=== PATIENT | male | born 1965 | race Caucasian/White ===

== ENCOUNTER 2021-02-26 16:55 | Emergency (ER) | payer OTHER, SELFPAY ==
--- NOTE | ~2021-02-26 | XR_ITS ---
EXAMINATION: XR ANKLE, RIGHT CLINICAL INFORMATION: Ankle pain COMPARISON: None TECHNIQUE: AP, lateral, and mortise views of the right ankle. FINDINGS: Soft tissue swelling around the anterior lateral ankle. No fracture. No dislocation. Ankle mortise is congruent. XR/XR ankle RT min 3V IMPRESSION: Soft tissue swelling at anterior lateral ankle. No acute osseous abnormality.
[2021-02-26 17:02] VITALS: BP 151/83; PULSE 100; RESP 18; TEMP 37; O2SAT 95; BMI 36.6
--- NOTE | 2021-02-26 19:43 | ED.LOWEXIN ---
HPI - Extremity Injury (Lower) General Chief Complaint: Extremity Injury, Lower Stated Complaint: Ankle pain Time Seen by Provider: 02/26/21 19:43 Source: patient and family Mode of arrival: ambulatory Limitations: no limitations History of Present Illness HPI Narrative: 55 y/o male with history of HTN, CAD s/p stent, DM who presents to the ER with right ankle pain after he twisted it twice today. He reports inversion injury walking down the steps earlier today and again when he was walking around the grocery store. The 2nd injury worsened the pain but he is still able to ambulate on it. He does have swelling to the outside of his ankle. No bruising or skin changes. He denies numbness or tingling. MD complaint: ankle injury Onset (ago): hour(s) Injury: Right: ankle Type of Injury: inversion Place: home and other (grocery store) Severity: moderate Severity scale (1-10): 5 Relieving factors: cold therapy Exacerbating factors: weight bearing, movement and palpation Context: walking Associated symptoms: swelling and ambulatory Other symptoms: none Treatments prior to arrival: cold therapy Related Data Previous Rx's Medication Instructions Recorded ibuprofen 600 mg tablet 600 mg PO Q8H PRN #14 tab 02/26/21 Allergies Allergy/AdvReac Type Severity Reaction Status Date / Time amoxicillin [Augmentin] Allergy Unknown Verified 03/10/18 00:00 clavulanic acid [Augmentin] Allergy Unknown Verified 03/10/18 00:00 Review of Systems Review of Systems: Constitutional: No Fever, No Chills Cardiovascular: No Chest Pain Respiratory: No Cough Gastrointestinal: No Nausea, No Vomiting, No abdominal Paina Musculoskeletal: + joint pain, No Myalgias Skin: No Skin Lesions, No rash Neuro: No Weakness, No Numbness Heme/Lymph: No Bruising PMFSH Past Medical History Medical History Diabetes Heart disease High cholesterol High triglycerides HTN (hypertension) Sleep apnea Surgical History (Updated 02/26/21 @ 17:05 by Emilia Pelletier) H/O heart artery stent S/P reconstruction of ligament of knee joint Social History Social History Advance Directives: No Advance Directives Information Provided: No Physical Exam Vital Signs: Vital Signs: Last Vital Signs Temp 98.6 F 02/26/21 17:02 Pulse 100 08/15/21 17:02 Resp 18 02/26/21 17:02 BP 151/83 H 02/26/21 17:02 Pulse Ox 95 02/26/21 17:02 Body Mass Index 36.6 Appearance: Alert. Oriented X3. No acute distress. HEENT: normal inspection CVS: Normal heart rate and rhythm. Pulses normal. Respiratory: No respiratory distress. Skin: Skin warm and dry. Normal skin color. Normal skin turgor. No rashes. Extremities: right ankle with moderate swelling above and below lateral malleolus with mild diffuse tenderness, no point tenderness. able to ambulate with slight limp. no ecchymosis. NV intact distally. Neuro: Oriented X 3. No motor deficit. No sensory deficit. Course Course Course Narrative: 55 y/o male presenting with right ankle pain s/p inversion injury x2 day. Still ambulatory. XR is negative for fracutre. His pain is due to ankle sprain, we discussed management and expected course. He will follow up with his PCP next week as scheduled. Placed in SANTOS wrap and given NSAID for pain. Critical Care Time Critical Care Time Critical Care Time: No Discharge Plan Discharge Clinical Impression: Ankle sprain and strain Patient Disposition: Home, Self-Care Instructions: Ankle Sprain (ED) Additional Instructions: Your x-ray today was normal. Rest you ankle and elevate your foot when possible. Recommend SANTOS wrap for support and compression. Use ice several times per day for the next 48 hours. You may bear weight as tolerated. Take Motrin and/or Tylenol as needed for pain. Follow up with your doctor next week for management of your blood pressure. Prescriptions: New ibuprofen 600 mg tablet 600 mg PO Q8H PRN (Reason: pain) Qty: 14 RF: 0
== END 2021-02-26 20:18 | disposition home or self-care (01) ==
PROVIDERS: Emergency Provider Emergency Medicine; PCP Family Medicine
DX: S93.401A Sprain of unspecified ligament of right ankle, initial encounter (principal); M25.571 Pain in right ankle and joints of right foot; I25.10 Atherosclerotic heart disease of native coronary artery without angina pectoris; X50.1XXA Overexertion from prolonged static or awkward postures, initial encounter; Y93.9 Activity, unspecified; Y92.9 Unspecified place or not applicable; Y99.9 Unspecified external cause status; I10 Essential (primary) hypertension; Z79.899 Other long term (current) drug therapy
CPT/HCPCS: 73610; 99283

== ENCOUNTER 2023-03-04 11:49 | Inpatient (IN) | payer OTHER, SELFPAY ==
[2023-03-04] VITALS (9 sets, daily range): BP systolic 150–171; BP diastolic 75–88; PULSE 76–103; RESP 16–19; TEMP 36.9–39.2; O2SAT 86–98; BMI 37.3
--- NOTE | ~2023-03-04 | XR_ITS ---
EXAMINATION: XR CHEST CLINICAL INFORMATION: Shortness of breath COMPARISON: None available. TECHNIQUE: Frontal view of the chest was obtained. FINDINGS: The cardiac and mediastinal contours are normal. The lungs are clear. There is no pleural effusion or pneumothorax. There are degenerative changes of the spine. There are old left clavicle and proximal left rib fractures. XR/XR chest 1V IMPRESSION: No evidence for acute disease in the chest.
--- NOTE | ~2023-03-04 | US_ITS ---
EXAMINATION: US VENOUS ULTRASOUND WITH DOPPLER LOWER EXTREMITY, RIGHT CLINICAL INFORMATION: Pain COMPARISON: None available. TECHNIQUE: Ultrasound of the deep veins is performed from the hip to the calf with compression sonography and color and pulse Doppler assessment. Spectral analysis with color-flow imaging is performed. FINDINGS: There is normal venous compression and respiratory variation and augmented flow. The visualized common femoral vein, superficial femoral vein, profunda femoral vein, popliteal vein, and the trifurcation region shows no evidence of deep venous thrombosis. There is no significant popliteal fossa cyst. If the patient's symptoms persist, followup ultrasound in 5 days 7 days might be of value to exclude proximal propagation from a non-visualized calf vein. US/US venous duplex LE RT IMPRESSION: No DVT demonstrated in the right lower extremity.
--- NOTE | ~2023-03-04 | XR_ITS ---
EXAMINATION: XR CHEST CLINICAL INFORMATION: Shortness of breath, hypoxic. COMPARISON: Chest radiograph 03/04/2023 at 2:00 PM. TECHNIQUE: AP view of the chest was obtained. FINDINGS: Stable appearance of the cardiomediastinal silhouette. Diffuse increased interstitial markings, slightly more prominent compared to earlier today. Suspect peripheral Wayne B-lines. No pleural effusion or pneumothorax. Chronic left upper rib fractures and left midclavicular fracture. XR/XR chest 1V IMPRESSION: Findings are suggestive of worsening pulmonary edema versus worsening atypical/viral infection. Close attention on follow-up to ensure improvement/resolution.
--- NOTE | ~2023-03-04 | XR_ITS ---
EXAMINATION: XR chest 1V CLINICAL INFORMATION: Reason for Exam Hypoxia COMPARISON: 03/05/2023 TECHNIQUE: XR chest 1V Tubes and lines: None Lungs and pleura: Redemonstration of mild patchy interstitial groundglass opacification unchanged from prior exam. Heart and mediastinum: The mediastinum is within normal limits.. Bones/soft tissue: Skeletal structures included are normal for patient's age. XR/XR chest 1V IMPRESSION: - Redemonstration of mild patchy interstitial groundglass opacification unchanged from prior exam. - No pleural effusion.
--- NOTE | ~2023-03-04 | US_ITS ---
EXAMINATION: US VENOUS ULTRASOUND WITH DOPPLER LOWER EXTREMITY, RIGHT CLINICAL INFORMATION: The right leg edema and pain. COMPARISON: There is some right lower extremity venous study 03/04/2023 TECHNIQUE: Ultrasound of the deep veins is performed from the hip to the calf with compression sonography and color and pulse Doppler assessment. Spectral analysis with color-flow imaging is performed. FINDINGS: There is normal venous compression and respiratory variation and augmented flow. The visualized common femoral vein, superficial femoral vein, profunda femoral vein, popliteal vein, and the trifurcation region shows no evidence of deep venous thrombosis. There is no significant popliteal fossa cyst. If the patient's symptoms persist, followup ultrasound in 5 days 7 days might be of value to exclude proximal propagation from a non-visualized calf vein. US/US venous duplex LE RT IMPRESSION: No DVT demonstrated in the right lower extremity. No change from the recent ultrasound 12/02/2022.
--- NOTE | ~2023-03-04 | XR_ITS ---
EXAMINATION: XR CHEST CLINICAL INFORMATION: Hypoxia. COMPARISON: Chest radiograph 03/04/2023. TECHNIQUE: Frontal view of the chest was obtained. FINDINGS: Stable prominence of the cardiomediastinal silhouette. Overall similar degree of diffuse interstitial thickening with questionable newly developed more focal groundglass opacities in the right lung. No pleural effusion or pneumothorax. Chronic left clavicular and posterior upper left-sided rib fractures. XR/XR chest 1V IMPRESSION: Questionable newly developed groundglass opacities in the right lung which could be seen with an atypical infection/pneumonia. Recommend clinical correlation and a follow-up examination to ensure resolution.
--- NOTE | ~2023-03-04 | CT_ITS ---
EXAMINATION: CT LOWER EXTREMITY WITH CONTRAST, RIGHT CLINICAL INFORMATION: Deep tissue infection, cellulitis COMPARISON: None. TECHNIQUE: CT of the right lower leg is performed following intravenous administration of 85 mL Omnipaque 350 iodinated contrast. Sagittal and coronal reformats were performed. This CT examination was performed using dose optimization techniques as appropriate, variously including the following: *Automated exposure control *Adjustment of mA and/or kV according to patient size (this includes techniques or standardized protocols for targeted exams where dose is matched to indication/reason for exam; i.e. extremities or head) *Use of iterative reconstruction technique Dose Length Product: 362 mGycm. FINDINGS: Diffuse subcutaneous edema throughout the lower leg and extending along the dorsum of the foot. No focal peripherally enhancing fluid collection to indicate an abscess. No asymmetric muscle attenuation. No acute osseous abnormality. No cortical erosion or periosteal reaction. CT/CT lower leg RT w IV con IMPRESSION: Diffuse subcutaneous edema throughout the lower leg and extending along the dorsum of the foot. This could represent cellulitis. No abscess.
--- NOTE | ~2023-03-04 | CT_ITS ---
EXAMINATION: CT ANGIOGRAM OF THE CHEST WITH AND WITHOUT CONTRAST (CT PULMONARY ANGIOGRAM FOR PE) CLINICAL INFORMATION: Reason for Exam Hemoptysis COMPARISON: None available. TECHNIQUE: Prior to contrast administration, noncontrast localization images were obtained. Subsequently, multidetector volumetric imaging was performed from the thoracic inlet to below the diaphragms following the administration of 80 mL Omnipaque 350 intravenous contrast. No contrast reaction reported Sagittal, coronal, and MIP oblique sagittal reformatted images were obtained on the CT workstation, uploaded to PACS, and reviewed. This CT examination was performed using dose optimization techniques as appropriate, variously including the following: *Automated exposure control *Adjustment of mA and/or kV according to patient size (this includes techniques or standardized protocols for targeted exams where dose is matched to indication/reason for exam; i.e. extremities or head) *Use of iterative reconstruction technique Total exam dose-length product 478 mGy-cm FINDINGS: QUALITY OF STUDY/CONTRAST BOLUS: Satisfactory. PULMONARY ARTERIES: No pulmonary emboli. THORACIC AORTA: No aneurysm. LUNG: There is bibasilar atelectasis/consolidation. Is patchy groundglass attenuation right upper lobe suspicious for developing infiltrate. PLEURA: Small bilateral pleural effusions are seen. No calcified pleural plaques or pneumothorax. MEDIASTINUM: Normal heart size. Small pericardial effusion is noted. No hilar or mediastinal lymphadenopathy. No evidence of septal bowing or right heart strain. CORONARY ARTERY CALCIFICATION: None visualized on this study. CHEST WALL/AXILLA: No axillary or internal mammary lymphadenopathy. OSSEOUS STRUCTURES: No aggressive lytic or sclerotic process seen. Mild ventral spondylosis seen throughout dorsal spine. UPPER ABDOMEN: Visualized liver, spleen appears unremarkable. No reflux of contrast into the hepatic veins to suggest elevated right heart pressures. CT/CT angio chest PE protocol IMPRESSION: 1. No evidence of PE. 2. No evidence of aortic aneurysm. 3. Small bilateral pleural effusions with bibasilar atelectasis/consolidation. 4. Small pericardial effusion. 5. There is right upper lobe patchy groundglass attenuation suspicious for developing infiltrate. VTE: negative.
--- NOTE | 2023-03-04 12:38 | ED_ITS ---
HPI - Nausea/Vomiting/Diarrhea General Chief complaint: General Medical Stated complaint: Syncope/Bloodclot?/Vomiting Time Seen by Provider: 03/04/23 13:01 Source: patient Mode of arrival: ambulatory Limitations: no limitations History of Present Illness HPI Narrative: Patient with history of Diabetes, coronary disease status post stent placement, sleep apnea and hypertension been having chills , fever with nausea vomiting yesterday almost passed out with blood sugar in 50s today noticed redness of the right leg no abdominal pain no cough no URI symptoms no open wound no chest pain or palpitation Related Data Home Medications Medication Instructions Recorded Confirmed aspirin 81 mg tablet,delayed 81 mg PO DAILY 03/04/23 03/04/23 release atorvastatin 80 mg tablet 80 mg PO BEDTIME 03/04/23 03/04/23 bupropion HCl 150 mg 24 hr tablet, 150 mg PO DAILY 03/04/23 03/04/23 extended release bupropion HCl 300 mg 24 hr tablet, 300 mg PO DAILY 03/04/23 03/04/23 extended release carvedilol 25 mg tablet 50 mg PO BID 03/04/23 03/04/23 dapagliflozin propanediol 10 mg 10 mg PO DAILY 03/04/23 03/04/23 tablet (Farxiga) doxazosin 4 mg tablet 4 mg PO DAILY 03/04/23 03/04/23 dulaglutide 3 mg/0.5 mL 3 mg subcut MO 03/04/23 03/04/23 subcutaneous pen injector (Trulicity) fenofibrate 160 mg tablet 160 mg PO DAILY 03/04/23 03/04/23 fluticasone propionate 50 1 spray intranasal BID 03/04/23 03/04/23 mcg/actuation nasal spray,suspension gabapentin 300 mg capsule 300 mg PO TID 03/04/23 03/04/23 insulin degludec 100 unit/mL (3 75 unit subcut BID 03/04/23 03/04/23 mL) subcutaneous pen (Tresiba FlexTouch U-100 insulin) isosorbide mononitrate 30 mg 30 mg PO DAILY 03/04/23 03/04/23 tablet,extended release 24 hr metformin 500 mg tablet,extended 1,000 mg PO BID 03/04/23 03/04/23 release 24 hr olmesartan 20 mg tablet 20 mg PO DAILY 03/04/23 03/04/23 olmesartan 40 1 tab PO DAILY 03/04/23 03/04/23 mg-hydrochlorothiazide 25 mg tablet Allergies Allergy/AdvReac Type Severity Reaction Status Date / Time amoxicillin [Augmentin] Allergy Unknown Verified 03/10/18 00:00 clavulanic acid [Augmentin] Allergy Unknown Verified 03/10/18 00:00 Review of Systems Review of Systems: Yes all other systems are reviewed and are negative [facility] Past Medical History Medical History Diabetes Heart disease High cholesterol High triglycerides HTN (hypertension) Sleep apnea Surgical History H/O heart artery stent S/P reconstruction of ligament of knee joint Social History Social History Smoked in Last 30 Days: No Use of substances other than those prescribed or required for medical reasons: No Advance Directives: No Advance Directives Information Provided: Yes Physical Exam Vital Signs: Vital Signs: Last Vital Signs Temp 99.3 F 03/04/23 16:53 Pulse 101 H 03/04/23 16:53 Resp 16 03/04/23 16:53 BP 171/83 H 03/04/23 16:53 Pulse Ox 92 03/04/23 16:53 O2 Del Method Room Air 03/04/23 16:53 BMI result Body Mass Index 37.3 Appearance: Alert. Oriented X3. No acute distress. Eyes: PERRLA, No Nystagmus ENT: Pharynx normal. Oral Mucosa moist Neck: Normal inspection. Neck supple. CVS: Normal heart rate and rhythm. Pulses normal. Respiratory: No respiratory distress. Equal air entry bilateral, no wheezing/rales/rhonchi Abdomen: Soft and nontender. Bowel sounds are present, no mass palpable, no CVA tenderness Skin: Skin warm and dry. Normal skin color. Normal skin turgor. Extremities: No lower extremity edema. No calf tenderness right leg cellulitic changes all the way to the thigh no open wound Neuro: Oriented X 3. No motor deficit. No sensory deficit.No cerebellar signs , cranial nerves II-XII intact Course Course Course Narrative: This is an RME: Additional HPI, ROS, PE not included below will be deferred to primary provider. This is a 57-year-old, with a hx of HTN, CAD s/p stent, UC, IBS, sleep apnea CPAP and DM, presenting to the emergency department with complaints of nausea vomiting diarrhea since yesterday. He states that his blood sugar has been dropping significantly. He admits that he had 2 syncopal episodes yesterday. He has pain radiating from his right ankle all the way up to his right thigh. Unable to visualize in triage however exquisitely tender to palpation. Patient is pale. He is not on blood thinners. Recent travel to [place] this past weekend. Endorsing shortness of breath, no chest pain Plan labs, EKG, chest x-ray, POC Medications Administered Discontinued Medications Generic Name Dose Route Start Last Admin Trade Name Freq PRN Reason Stop Dose Admin Vancomycin HCl 2,000 mg in 500 mls @ 250 mls/hr 03/04/23 13:25 03/04/23 17:28 Vancomycin/Ns IV 03/04/23 15:24 Infused ONCE ONE Infusion Ceftriaxone Sodium 1 gm/ 50 mls @ 100 mls/hr 03/04/23 13:25 03/04/23 14:57 Sodium Chloride IV 03/04/23 13:54 Infused ONCE ONE Infusion Sodium Chloride 1,000 mls @ 999 mls/hr 03/04/23 13:26 03/04/23 17:28 Ns IV 03/04/23 14:26 Infused .Q1H1M ONE Infusion Ondansetron HCl 4 mg 03/04/23 13:28 03/04/23 14:00 Ondansetron Hcl 4 Mg/2 Ml Vial IVPUSH 03/04/23 13:29 4 mg ONCE ONE Administration Medical Decision Making Medical Decision Making [facility] Narrative: Patient hypoglycemia and syncope episode noticed to have sepsis with right leg cellulitis with tachycardia leukocytosis and fever patient improved after IV fluids and antibiotic venous Doppler negative for DVT Differential Diagnosis Differential Diagnoses: The differential diagnosis associated with the presentation includes Sepsis/cellulitis/syncope/cardiac arrhythmias/ MINNIE Admission/Observation Consideration of admission/observation: Escalation of care including admission/observation considered Consult Healthcare Provider Management of the patient was discussed with: Hospitalist Lab Data MDM Lab Attestation statement: I reviewed the patient's lab results. 03/04/23 13:28 03/04/23 13:28 Labs: Lab Results 08/03/04/23 03/04/23 Range/Units 13:18 13:28 13:28 WBC 15.3 H (4.8-10.8) X10*3/uL RBC 5.02 (4.60-5.80) X10*6/uL Hgb 14.2 (14.0-18.0) g/dl Hct 42.9 (42.0-52.0) % MCV 85.5 (80.0-98.0) fL MCH 28.3 (27.0-33.0) pg MCHC 33.1 (31.0-36.0) g/dl RDW 14.8 (11.0-16.0) % Plt Count 151 L (160-400) X10*3/uL MPV 12.1 (9.4-12.4) fL Immature Gran % (Auto) 0.4 (0.0-0.4) % Neut % (Auto) 87.2 H (45-73) % Lymph % (Auto) 5.3 L (20-40) % [place] % (Auto) 6.6 (2-11) % Eos % (Auto) 0.1 (0-4) % Baso % (Auto) 0.4 (0-2) % Lymph # (Auto) 0.8 L (1.2-4.9) X10*3/uL [place] # (Auto) 1.0 (0.1-1.2) X10*3/uL Eos # (Auto) 0.0 (0.0-0.4) X10*3/uL Baso # (Auto) 0.1 (0.0-0.2) X10*3/uL Abs Immat Gran (auto) 0.06 H (0.00-0.03) X10*3/uL Absolute Neuts (auto) 13.4 H (2.0-8.3) x10*3/uL Absolute Nucleated RBC 0.000 (0.0-0.012) X10*3/uL Nucleated RBC % (auto) 0.0 (0.0-0.2) /100WBC PT (11.1-13.3) SEC INR (0.9-1.1) APTT (26.0-36.4) SEC Sodium 143 (135-145) mmol/L Potassium 3.1 L (3.3-5.1) mmol/L Chloride 104 (96-108) mmol/L Carbon Dioxide 28 (22-29) mmol/L Anion Gap 14 (12-20) BUN 26 H (9-16) mg/dL Creatinine 1.64 H (0.5-1.4) mg/dL Estim Creat Clear Calc 68.6 Estimated GFR 44 POC Glucose 56 L* (60-115) mg/dL Random Glucose 65 (60-115) mg/dL Lactic Acid (0.5-2.0) mmol/L Calcium 10.3 H (8.4-10.2) mg/dL Magnesium 1.9 (1.6-2.6) mg/dL Total Bilirubin 1.5 H (0.0-1.0) mg/dL Direct Bilirubin 0.6 H (0.0-0.5) mg/dL AST 33 (5-37) U/L ALT 44 H (0-40) U/L Alkaline Phosphatase 49 (39-117) U/L Troponin I High Sens (<3.5-35.0) ng/L B-Natriuretic Peptide (<100) pg/mL Total Protein 7.8 (6.5-8.0) g/dL Albumin 4.4 (3.5-5.0) g/dL Lipase 48 (8-78) U/L COVID-19 (VICKY) (Negative) COVID-19 Clin Com Influenza Type A (HUMA) (Negative) Influenza Type B (HUMA) (Negative) Influenza A & B Note 03/04/23 03/04/23 03/04/23 Range/Units 13:28 13:28 13:28 WBC (4.8-10.8) X10*3/uL RBC (4.60-5.80) X10*6/uL Hgb (14.0-18.0) g/dl Hct (42.0-52.0) % MCV (80.0-98.0) fL MCH (27.0-33.0) pg MCHC (31.0-36.0) g/dl RDW (11.0-16.0) % Plt Count (160-400) X10*3/uL MPV (9.4-12.4) fL Immature Gran % (Auto) (0.0-0.4) % Neut % (Auto) (45-73) % Lymph % (Auto) (20-40) % [place] % (Auto) (2-11) % Eos % (Auto) (0-4) % Baso % (Auto) (0-2) % Lymph # (Auto) (1.2-4.9) X10*3/uL [place] # (Auto) (0.1-1.2) X10*3/uL Eos # (Auto) (0.0-0.4) X10*3/uL Baso # (Auto) (0.0-0.2) X10*3/uL Abs Immat Gran (auto) (0.00-0.03) X10*3/uL Absolute Neuts (auto) (2.0-8.3) x10*3/uL Absolute Nucleated RBC (0.0-0.012) X10*3/uL Nucleated RBC % (auto) (0.0-0.2) /100WBC PT 16.2 H (11.1-13.3) SEC INR 1.3 H (0.9-1.1) APTT 24.1 L (26.0-36.4) SEC Sodium (135-145) mmol/L Potassium (3.3-5.1) mmol/L Chloride (96-108) mmol/L Carbon Dioxide (22-29) mmol/L Anion Gap (12-20) BUN (9-16) mg/dL Creatinine (0.5-1.4) mg/dL Estim Creat Clear Calc Estimated GFR POC Glucose (60-115) mg/dL Random Glucose (60-115) mg/dL Lactic Acid (0.5-2.0) mmol/L Calcium (8.4-10.2) mg/dL Magnesium (1.6-2.6) mg/dL Total Bilirubin (0.0-1.0) mg/dL Direct Bilirubin (0.0-0.5) mg/dL AST (5-37) U/L ALT (0-40) U/L Alkaline Phosphatase (39-117) U/L Troponin I High Sens 47.7 H (<3.5-35.0) ng/L B-Natriuretic Peptide 136 H (<100) pg/mL Total Protein (6.5-8.0) g/dL Albumin (3.5-5.0) g/dL Lipase (8-78) U/L COVID-19 (VICKY) (Negative) COVID-19 Clin Com Influenza Type A (HUMA) (Negative) Influenza Type B (HUMA) (Negative) Influenza A & B Note 03/04/23 03/04/23 03/04/23 Range/Units 13:50 13:50 13:50 WBC (4.8-10.8) X10*3/uL RBC (4.60-5.80) X10*6/uL Hgb (14.0-18.0) g/dl Hct (42.0-52.0) % MCV (80.0-98.0) fL MCH (27.0-33.0) pg MCHC (31.0-36.0) g/dl RDW (11.0-16.0) % Plt Count (160-400) X10*3/uL MPV (9.4-12.4) fL Immature Gran % (Auto) (0.0-0.4) % Neut % (Auto) (45-73) % Lymph % (Auto) (20-40) % [place] % (Auto) (2-11) % Eos % (Auto) (0-4) % Baso % (Auto) (0-2) % Lymph # (Auto) (1.2-4.9) X10*3/uL [place] # (Auto) (0.1-1.2) X10*3/uL Eos # (Auto) (0.0-0.4) X10*3/uL Baso # (Auto) (0.0-0.2) X10*3/uL Abs Immat Gran (auto) (0.00-0.03) X10*3/uL Absolute Neuts (auto) (2.0-8.3) x10*3/uL Absolute Nucleated RBC (0.0-0.012) X10*3/uL Nucleated RBC % (auto) (0.0-0.2) /100WBC PT (11.1-13.3) SEC INR (0.9-1.1) APTT (26.0-36.4) SEC Sodium (135-145) mmol/L Potassium (3.3-5.1) mmol/L Chloride (96-108) mmol/L Carbon Dioxide (22-29) mmol/L Anion Gap (12-20) BUN (9-16) mg/dL Creatinine (0.5-1.4) mg/dL Estim Creat Clear Calc Estimated GFR POC Glucose (60-115) mg/dL Random Glucose (60-115) mg/dL Lactic Acid 1.0 (0.5-2.0) mmol/L Calcium (8.4-10.2) mg/dL Magnesium (1.6-2.6) mg/dL Total Bilirubin (0.0-1.0) mg/dL Direct Bilirubin (0.0-0.5) mg/dL AST (5-37) U/L ALT (0-40) U/L Alkaline Phosphatase (39-117) U/L Troponin I High Sens (<3.5-35.0) ng/L B-Natriuretic Peptide (<100) pg/mL Total Protein (6.5-8.0) g/dL Albumin (3.5-5.0) g/dL Lipase (8-78) U/L COVID-19 (VICKY) Negative (Negative) COVID-19 Clin Com See Note Influenza Type A (HUMA) Negative (Negative) Influenza Type B (HUMA) Negative (Negative) Influenza A & B Note See Note 03/04/23 Range/Units 14:42 WBC (4.8-10.8) X10*3/uL RBC (4.60-5.80) X10*6/uL Hgb (14.0-18.0) g/dl Hct (42.0-52.0) % MCV (80.0-98.0) fL MCH (27.0-33.0) pg MCHC (31.0-36.0) g/dl RDW (11.0-16.0) % Plt Count (160-400) X10*3/uL MPV (9.4-12.4) fL Immature Gran % (Auto) (0.0-0.4) % Neut % (Auto) (45-73) % Lymph % (Auto) (20-40) % [place] % (Auto) (2-11) % Eos % (Auto) (0-4) % Baso % (Auto) (0-2) % Lymph # (Auto) (1.2-4.9) X10*3/uL [place] # (Auto) (0.1-1.2) X10*3/uL Eos # (Auto) (0.0-0.4) X10*3/uL Baso # (Auto) (0.0-0.2) X10*3/uL Abs Immat Gran (auto) (0.00-0.03) X10*3/uL Absolute Neuts (auto) (2.0-8.3) x10*3/uL Absolute Nucleated RBC (0.0-0.012) X10*3/uL Nucleated RBC % (auto) (0.0-0.2) /100WBC PT (11.1-13.3) SEC INR (0.9-1.1) APTT (26.0-36.4) SEC Sodium (135-145) mmol/L Potassium (3.3-5.1) mmol/L Chloride (96-108) mmol/L Carbon Dioxide (22-29) mmol/L Anion Gap (12-20) BUN (9-16) mg/dL Creatinine (0.5-1.4) mg/dL Estim Creat Clear Calc Estimated GFR POC Glucose 73 (60-115) mg/dL Random Glucose (60-115) mg/dL Lactic Acid (0.5-2.0) mmol/L Calcium (8.4-10.2) mg/dL Magnesium (1.6-2.6) mg/dL Total Bilirubin (0.0-1.0) mg/dL Direct Bilirubin (0.0-0.5) mg/dL AST (5-37) U/L ALT (0-40) U/L Alkaline Phosphatase (39-117) U/L Troponin I High Sens (<3.5-35.0) ng/L B-Natriuretic Peptide (<100) pg/mL Total Protein (6.5-8.0) g/dL Albumin (3.5-5.0) g/dL Lipase (8-78) U/L COVID-19 (VICKY) (Negative) COVID-19 Clin Com Influenza Type A (HUMA) (Negative) Influenza Type B (HUMA) (Negative) Influenza A & B Note Independent Interpretation I performed an independent interpretation of an: EKG Interpretation: Normal sinus rhythm heart rate 91 beats per minute LVH no acute ST T wave changes no acute ischemia Independent Historian Clinical information obtained from an independent historian. History obtained from or confirmed by: Spouse Discharge Plan Discharge Clinical Impression: Cellulitis of right leg, Sepsis, MINNIE (acute kidney injury) Patient Disposition: Admitted As Inpatient
--- NOTE | 2023-03-04 12:44 | ECG_ITS ---
Test Reason : DYSPNEA Blood Pressure : / mmHG Vent. Rate : 091 BPM Atrial Rate : 091 BPM P-R Int : 148 ms QRS Dur : 088 ms QT Int : 352 ms P-R-T Axes : 030 000 127 degrees QTc Int : 432 ms Normal sinus rhythm Left ventricular hypertrophy with repolarization abnormality ( R in aVL , [place] product ) Abnormal ECG No previous ECGs available Referred By: Sommer Mcwillimas Electronically Signed By:NANCY SANTILLAN
[2023-03-04 13:22] LABS: Glucose, Whole Blood 56 mg/dL (60-115)
--- NOTE | 2023-03-04 13:30 | PC.NURSE ---
pt axox4, respirations even and unlabored, sats 95% RA, skin wpd. pt reports n/v/d, R. lower leg swelling/redness, syncope like episodes x 1 day. pt states no injury to extremity; skin intact. neuros intact. pt states with syncope episodes present; no headstrike. +pedal pulses. md to bedisde; labs drawn, iv established. u/s at bedside at this time. call son within reach. poc 56; pt given juice; will recheck poc.
[2023-03-04 13:32] LABS: MANUAL DIFF FLAG NO
[2023-03-04 13:36] LABS: Basophils Absolute Auto 0.1 X10*3/uL (0.0-0.2); Basophils Percent Auto 0.4 % (0-2); Eosinophils Percent Auto 0.1 % (0-4); Hematocrit 42.9 % (42.0-52.0); Hemoglobin 14.2 g/dl (14.0-18.0); Imm Gran Abs Auto 0.06 X10*3/uL (0.00-0.03); Imm Gran Pct Auto 0.4 % (0.0-0.4); Lymphocytes Absolute Auto 0.8 X10*3/uL (1.2-4.9); Lymphocytes Percent Auto 5.3 % (20-40); Mean Corpuscular HGB Conc 33.1 g/dl (31.0-36.0); Mean Corpuscular Hemoglobin 28.3 pg (27.0-33.0); Mean Corpuscular Volume 85.5 fL (80.0-98.0); Mean Platelet Volume 12.1 fL (9.4-12.4); Monocytes Percent Auto 6.6 % (2-11); Neutrophils Absolute Auto 13.4 x10*3/uL (2.0-8.3); Neutrophils Percent Auto 87.2 % (45-73); Platelet Count 151 X10*3/uL (160-400); Red Blood Count 5.02 X10*6/uL (4.60-5.80); Red Cell Distribution Width 14.8 % (11.0-16.0); White Blood Count 15.3 X10*3/uL (4.8-10.8)
[2023-03-04 13:41] LABS: INTERNATIONAL NORM RATIO 1.3 (0.9-1.1); Prothrombin Time 16.2 SEC (11.1-13.3)
[2023-03-04 13:44] LABS: Partial Thromboplastin Time 24.1 SEC (26.0-36.4)
[2023-03-04 13:49] LABS: Alanine Aminotransferase 44 U/L (0-40); Albumin Level 4.4 g/dL (3.5-5.0); Alkaline Phosphatase 49 U/L (39-117); Anion Gap 14 (12-20); Aspartate Amino Transferase 33 U/L (5-37); Bilirubin Direct 0.6 mg/dL (0.0-0.5); Bilirubin Total 1.5 mg/dL (0.0-1.0); Blood Urea Nitrogen 26 mg/dL (9-16); Calcium 10.3 mg/dL (8.4-10.2); Carbon Dioxide 28 mmol/L (22-29); Chloride 104 mmol/L (96-108); Creatinine Clr Calc Pharmacy 68.6; Estimated Glomerular Filt Rate 44; Glucose Random 65 mg/dL (60-115); Lipase 48 U/L (8-78); Magnesium 1.9 mg/dL (1.6-2.6); Potassium 3.1 mmol/L (3.3-5.1); Sodium 143 mmol/L (135-145); Total Protein 7.8 g/dL (6.5-8.0)
[2023-03-04 13:54] LABS: B Type Natriuretic Peptide 136 pg/mL (<100)
[2023-03-04 13:57] LABS: Troponin-I High Sensitivity 47.7 ng/L (<3.5-35.0)
[2023-03-04] MEDS: cefTRIAXone sodium 1 GM in 0.9 % Sodium Chloride 50 ML IV (14:00)
[2023-03-04] MEDS: ondansetron HCL 4 MG/2 ML VIAL IVPUSH (14:00)
[2023-03-04] MEDS: 0.9 % Sodium Chloride 1,000 ML 999 ML IV (14:01)
--- NOTE | 2023-03-04 14:01 | PHA.MEDREC ---
Pharmacy Consult ? Medication Reconciliation Pharmacy has completed the medication reconciliation. PATIENT STATES THEY ARE ON BOTH OLMESARTAN 40 COMBO WITH HCTZ AND OLMESARTAN 20 MG. PT ALSO ON BOTH DOSES OF BUPROPION TED
[2023-03-04 14:19] LABS: COVID-19 Test Negative (Negative); IDNOW Serial# 08D9AD1C; IDNOW Serial# BCCEAD1C; Influenza A Negative (Negative); Influenza B2 Negative (Negative)
[2023-03-04 14:47] LABS: Glucose, Whole Blood 73 mg/dL (60-115)
[2023-03-04] MEDS: vancomycin/NS 2,000 MG/500 ML PLAST..BAG 250 MG IV (14:55)
--- NOTE | 2023-03-04 15:52 | P.HPHOSP_ITS ---
History of Present Illness Date of Service: 03/04/23 Chief Complaint: right leg pain, swelling and redness 57 year old male with Diabetes, Heart disease, High cholesterol, High triglycerides, HTN (hypertension), and Sleep apnea--uses CPAP. He presents to the hospital with acute right leg pain, swelling, redness since yesterday. He denies trauma and has been having fever an chills. He just returned from a [place] trip. US of the right leg is negative for dVT, WBC is high. K is 3.1, Creatine 1.6 no baseline. ED treatement: Ceftriaxone + Vancomycin. He reportedly also had an episode of hypoglycemia and passed out when he stood up yesterday. Review of Systems Review of Systems: Gen: no fever Resp: no sob, no cough CV: no chest, no NEGRO, no leg edema GI: No n/v, no abd pain Neuro: No confusion MSK: right leg pain, sweeling Yes Unobtainable due to mental status [facility] Medical History Diabetes Heart disease High cholesterol High triglycerides HTN (hypertension) Sleep apnea Surgical History H/O heart artery stent S/P reconstruction of ligament of knee joint Social History Smoked in Last 30 Days: No Use of substances other than those prescribed or required for medical reasons: No Advance Directives: No Advance Directives Information Provided: Yes Meds Allergies Allergy/AdvReac Type Severity Reaction Status Date / Time amoxicillin [Augmentin] Allergy Unknown Verified 03/10/18 00:00 clavulanic acid [Augmentin] Allergy Unknown Verified 03/10/18 00:00 Home Medications Medication Instructions Recorded Confirmed Last Taken Type aspirin 81 mg tablet,delayed 81 mg PO DAILY 03/04/23 03/04/23 Unknown History release atorvastatin 80 mg tablet 80 mg PO BEDTIME 03/04/23 03/04/23 Unknown History bupropion HCl 150 mg 24 hr tablet, 150 mg PO DAILY 03/04/23 03/04/23 Unknown History extended release bupropion HCl 300 mg 24 hr tablet, 300 mg PO DAILY 03/04/23 03/04/23 Unknown History extended release carvedilol 25 mg tablet 50 mg PO BID 03/04/23 03/04/23 Unknown History dapagliflozin propanediol 10 mg 10 mg PO DAILY 03/04/23 03/04/23 Unknown History tablet (Farxiga) doxazosin 4 mg tablet 4 mg PO DAILY 03/04/23 03/04/23 Unknown History dulaglutide 3 mg/0.5 mL 3 mg subcut MO 03/04/23 03/04/23 Unknown History [facility] fenofibrate 160 mg tablet 160 mg PO DAILY 03/04/23 03/04/23 Unknown History fluticasone propionate 50 1 spray intranasal BID 03/04/23 03/04/23 Unknown History mcg/actuation nasal spray,suspension gabapentin 300 mg capsule 300 mg PO TID 03/04/23 03/04/23 Unknown History insulin degludec 100 unit/mL (3 75 unit subcut BID 03/04/23 03/04/23 Unknown History mL) subcutaneous pen (Tresiba FlexTouch U-100 insulin) isosorbide mononitrate 30 mg 30 mg PO DAILY 03/04/23 03/04/23 Unknown History tablet,extended release 24 hr metformin 500 mg tablet,extended 1,000 mg PO BID 03/04/23 03/04/23 Unknown History release 24 hr olmesartan 20 mg tablet 20 mg PO DAILY 03/04/23 03/04/23 Unknown History olmesartan 40 1 tab PO DAILY 03/04/23 03/04/23 Unknown History mg-hydrochlorothiazide 25 mg tablet Physical Exam Vital Signs and Narrative: Vital Signs: Last Vital Signs Temp 99.9 F 03/04/23 15:24 Pulse 96 03/04/23 15:24 Resp 16 03/04/23 15:24 BP 170/88 H 03/04/23 15:24 Pulse Ox 93 03/04/23 15:24 O2 Del Method Room Air 03/04/23 15:24 BMI result Body Mass Index 37.3 Const: Other: General: AO X 3, no acute distress Resp: CTA bilateral CVS: S1,S2,RRR GI: +BS, NT, no distention Skin: No rash ext: righ leg is tensely swollen, some erythema in the calf area, Neuro: motor grossly intact Psych: appropriate affect Results Labs 03/04/23 13:28 03/04/23 13:28 Labs: Laboratory Results - last 24 hr 03/04/23 03/04/23 03/04/23 13:18 13:28 13:28 MCV 85.5 MCH 28.3 MCHC 33.1 RDW 14.8 Plt Count 151 L MPV 12.1 Immature Gran % (Auto) 0.4 Neut % (Auto) 87.2 H Lymph % (Auto) 5.3 L [place] % (Auto) 6.6 Eos % (Auto) 0.1 Baso % (Auto) 0.4 Lymph # (Auto) 0.8 L [place] # (Auto) 1.0 Eos # (Auto) 0.0 Baso # (Auto) 0.1 Abs Immat Gran (auto) 0.06 H Absolute Neuts (auto) 13.4 H Absolute Nucleated RBC 0.000 Nucleated RBC % (auto) 0.0 PT INR APTT Anion Gap 14 Estim Creat Clear Calc 68.6 Estimated GFR 44 POC Glucose 56 L* Random Glucose 65 Lactic Acid Calcium 10.3 H Magnesium 1.9 Total Bilirubin 1.5 H Direct Bilirubin 0.6 H AST 33 ALT 44 H Alkaline Phosphatase 49 B-Natriuretic Peptide Total Protein 7.8 Albumin 4.4 Lipase 48 COVID-19 (VICKY) COVID-19 Clin Com Influenza Type A (HUMA) Influenza Type B (HUMA) Influenza A & B Note 03/04/23 03/04/23 03/04/23 13:28 13:28 13:50 MCV MCH MCHC RDW Plt Count MPV Immature Gran % (Auto) Neut % (Auto) Lymph % (Auto) [place] % (Auto) Eos % (Auto) Baso % (Auto) Lymph # (Auto) [place] # (Auto) Eos # (Auto) Baso # (Auto) Abs Immat Gran (auto) Absolute Neuts (auto) Absolute Nucleated RBC Nucleated RBC % (auto) PT 16.2 H INR 1.3 H APTT 24.1 L Anion Gap Estim Creat Clear Calc Estimated GFR POC Glucose Random Glucose Lactic Acid Calcium Magnesium Total Bilirubin Direct Bilirubin AST ALT Alkaline Phosphatase B-Natriuretic Peptide 136 H Total Protein Albumin Lipase COVID-19 (VICKY) COVID-19 Clin Com Influenza Type A (HUMA) Negative Influenza Type B (HUMA) Negative Influenza A & B Note See Note 03/04/23 03/04/23 03/04/23 13:50 13:50 14:42 MCV MCH MCHC RDW Plt Count MPV Immature Gran % (Auto) Neut % (Auto) Lymph % (Auto) [place] % (Auto) Eos % (Auto) Baso % (Auto) Lymph # (Auto) [place] # (Auto) Eos # (Auto) Baso # (Auto) Abs Immat Gran (auto) Absolute Neuts (auto) Absolute Nucleated RBC Nucleated RBC % (auto) PT INR APTT Anion Gap Estim Creat Clear Calc Estimated GFR POC Glucose 73 Random Glucose Lactic Acid 1.0 Calcium Magnesium Total Bilirubin Direct Bilirubin AST ALT Alkaline Phosphatase B-Natriuretic Peptide Total Protein Albumin Lipase COVID-19 (VICKY) Negative COVID-19 Clin Com See Note Influenza Type A (HUMA) Influenza Type B (HUMA) Influenza A & B Note Imaging Radiologist's Impressions: Impressions Venous Duplex 03/04/23 13:30 IMPRESSION: No DVT demonstrated in the right lower extremity. Chest X-Ray 03/04/23 14:19 IMPRESSION: No evidence for acute disease in the chest. Assessment and Plan (1) Cellulitis of right leg: Status: Acute (2) Sepsis: Status: Acute (3) MINNIE (acute kidney injury): Status: Acute Plan 57/m with diabetes here with right leg cellulitis with sepsis (criteria = WBC 15 + HR>90), Sepsis d/t Cellulitis, NO severe sepsis Cellulitis of the right covering more than 50% of the limb -recieved CEftriaxone + Vanco in ED -Continue IV Vanco, follow cultures and once improve dc with oral Doxy MINNIE Cr 1.6, last Cr on 01/16/23 at [facility] was 1.0, likely pre-renal, IVF and recheck tomorrow, hold nephrotoxin meds, hold ACEi Syncope--suspect d/t Orthostatic Hypotension and Hypoglycemia, IVF, repeat tomorrow Diabetes--continue home meds with pharmacy interchange, hold metformin d/t renal failure High cholesterol--continue Statin High triglycerides HTN (hypertension)--continue Coreg hold olmesartan d/t renal failure, imdur Sleep apnea--CPAP CAD (heart disease), ASA, Coreg, Statin, imdur Mood desorder/Depression--Bupropion DVT prophylaxis: Levenox Full code 2 midhts admit: for cellulitis of more 50% of limbs and needs IV Abx to prevent deterioration, MINNIE that needs IVF Time Spent With Patient Time: Total time managing care of this patient today ____ minutes. Quality Stroke Does the patient have a stroke diagnosis?: No VTE Prior VTE?: No VTE Risk Level:: Medical - moderate - high VTE Device Contraindication: Treatment Not Indicated VTE Drug Contraindication: N/A - Med Ordered
[2023-03-04 18:09] LABS: Glucose, Whole Blood 80 mg/dL (60-115)
[2023-03-04] MEDS: Sodium Chloride 0.45 % 1,000 ML 100 ML IVCONT (18:25)
--- NOTE | 2023-03-04 18:46 | PHA.PROG ---
Admission Date/Time: March 04, 2023 16:27 Indication: Skin Weight in k.738 kg Adjusted body weight in Kg: [place] body weight in Kg: Obesity Dosing Indication % IBW: Obesity model Serum Creatinine - Last 168 Hours 03/04/23 13:28 Creatinine 1.64 H Estimated CrCl and GFR - Last 168 Hours 03/04/23 13:28 Estim Creat Clear Calc 68.6 Estimated GFR 44 Vancomycin Loading Dose: 2000mg x 1 Current Vancomycin Dosing Regimen: 1250mg Q24H Vancomycin Monitoring using AUC goal of 400 - 600 range with trough as surrogate marker: 484 mg/L Date and Time for next Vancomycin Level to be drawn: 03/07/23 @1300 Pharmacist Comments on Vancomycin Plan: Obesity model being used; predicted trough of 12.4mg/L. Vancomycin dosing will take advantage of [employer] as a clinical decision support tool that uses Bayesian modeling to calculate individual patient's pharmacokinetic parameters and forecast the patient's drug concentration time course with the target goal AUC 24 range of 400 - 600 mg/L/hr.
[2023-03-04] MEDS: Acetaminophen 325 MG TABLET 650 MG PO (18:59)
[2023-03-04] MEDS: Gabapentin 300 MG CAPSULE PO (20:25)
[2023-03-04] MEDS: Atorvastatin Calcium 80 MG TABLET PO (20:25)
[2023-03-04] MEDS: carvediloL 12.5 MG TABLET 50 MG PO (20:25)
[2023-03-04 20:49] LABS: Lactic Acid 0.7 mmol/L (0.5-2.0)
[2023-03-04 20:54] LABS: Glucose, Whole Blood 126 mg/dL (60-115)
[2023-03-05] VITALS (9 sets, daily range): BP systolic 123–170; BP diastolic 56–95; PULSE 85–99; RESP 16–20; TEMP 36.2–38.3; O2SAT 88–97
[2023-03-05] MEDS: 0.9 % Sodium Chloride Flush 3 ML SYRINGE IVFLUSH ×2 (00:03→20:24)
[2023-03-05] MEDS: Morphine Sulfate 2 MG/ML CARTRIDGE IVPUSH ×2 (00:58→20:40)
[2023-03-05] MEDS: Calcium Carbonate 750 MG TAB.CHEW PO ×2 (01:17→16:00)
[2023-03-05] MEDS: Sodium Chloride 0.45 % 1,000 ML 100 ML IVCONT ×2 (03:58→11:20)
[2023-03-05 07:05] LABS: MANUAL DIFF FLAG NO
[2023-03-05 07:08] LABS: Basophils Percent Auto 0.2 % (0-2); Eosinophils Percent Auto 0.1 % (0-4); Hematocrit 40.5 % (42.0-52.0); Imm Gran Abs Auto 0.07 X10*3/uL (0.00-0.03); Imm Gran Pct Auto 0.6 % (0.0-0.4); Lymphocytes Absolute Auto 0.8 X10*3/uL (1.2-4.9); Lymphocytes Percent Auto 6.6 % (20-40); Mean Corpuscular HGB Conc 32.1 g/dl (31.0-36.0); Mean Corpuscular Volume 87.3 fL (80.0-98.0); Mean Platelet Volume 12.8 fL (9.4-12.4); Monocytes Absolute Auto 0.9 X10*3/uL (0.1-1.2); Monocytes Percent Auto 7.4 % (2-11); Neutrophils Absolute Auto 10.6 x10*3/uL (2.0-8.3); Neutrophils Percent Auto 85.1 % (45-73); Platelet Count 136 X10*3/uL (160-400); Red Blood Count 4.64 X10*6/uL (4.60-5.80); Red Cell Distribution Width 14.8 % (11.0-16.0); White Blood Count 12.4 X10*3/uL (4.8-10.8)
[2023-03-05 07:32] LABS: Anion Gap 14 (12-20); Blood Urea Nitrogen 20 mg/dL (9-16); Calcium 9.5 mg/dL (8.4-10.2); Carbon Dioxide 25 mmol/L (22-29); Chloride 107 mmol/L (96-108); Creatinine Clr Calc Pharmacy 95.3; Estimated Glomerular Filt Rate > 60; Glucose Random 70 mg/dL (60-115); Potassium 3.3 mmol/L (3.3-5.1); Sodium 143 mmol/L (135-145)
[2023-03-05 07:51] LABS: Glucose, Whole Blood 63 mg/dL (60-115)
[2023-03-05] MEDS: buPROPion HCl XL 150 MG TAB.ER.24H PO (08:53)
[2023-03-05] MEDS: carvediloL 12.5 MG TABLET 50 MG PO ×2 (08:53→20:24)
[2023-03-05] MEDS: Gabapentin 300 MG CAPSULE PO ×3 (08:54→20:24)
[2023-03-05] MEDS: Isosorbide Mononitrate 30 MG TAB.ER.24H PO (08:54)
[2023-03-05] MEDS: Aspirin Enteric Coated 81 MG TABLET.DR PO (08:54)
[2023-03-05] MEDS: Empagliflozin 10 MG TABLET PO (08:54)
[2023-03-05] MEDS: Fenofibrate 160 MG TABLET PO (08:54)
[2023-03-05] MEDS: Doxazosin Mesylate 2 MG TABLET 4 MG PO (08:54)
[2023-03-05] MEDS: buPROPion HCl XL 300 MG TAB.ER.24H PO (08:54)
[2023-03-05 08:58] LABS: Glucose, Whole Blood 119 mg/dL (60-115)
[2023-03-05] MEDS: amLODIPine Besylate 5 MG TABLET PO (09:31)
[2023-03-05] MEDS: Acetaminophen 325 MG TABLET 650 MG PO (09:33)
--- NOTE | 2023-03-05 10:10 | MHC.CM.PN ---
EMR REVIEWED, PT ADMITTED SEPSIS D/T CELLULITIS, CM MET W/PT WHO REPORTS HE IS FULLY INDEP, WORKS/DRIVES, HAS A CPAP AND NO OTHER DME AND NO HOME SERVICES, GOAL FOR D/C IS HOME NO SERVICES AND PT COMPLETED A NEW HCP NAMING HIS OSVALDO [phone] HIS [facility] W/NO ALTERNATE CHOSEN AT THIS TIME, PT RECEIVED EDUCATIONAL HANDOUT, ORIGINAL AND 2 COPIES, COPY UPLOADED TO [facility] AND PLACED IN CHART. ANTIC D/C HOME NO SERVICES TOMORROW W/PT'S FOR TRANSPORT.
[2023-03-05 10:55] LABS: Glucose, Whole Blood 97 mg/dL (60-115)
[2023-03-05] MEDS: ceFAZolin Sodium/Dextrose,Iso 2 GM/50 ML PIGGYBACK IV ×2 (11:20→18:15)
--- NOTE | 2023-03-05 12:30 | P.PNIM_ITS ---
Subjective Subjective Date of Service: 03/05/23 Interval History: Seen and evaluated this morning complaining of pain RLE with erythema and pain Kidney function improving No more syncope Sugar running low Review of Systems Review of Systems: Yes all other systems are reviewed and are negative Physical Exam Vital Signs: Vital Signs: Last Vital Signs Temp 97.6 F 03/05/23 11:16 Pulse 85 03/05/23 11:16 Resp 16 03/05/23 11:16 BP 127/58 L 03/05/23 11:16 Pulse Ox 90 L 03/05/23 11:16 O2 Del Method Nasal Cannula 03/05/23 11:16 O2 Flow Rate 3 03/05/23 11:16 BMI result Body Mass Index 37.3 Const: Other: Constitutional : Awake, interactive, not in distress Neck : Normal inspection, Supple Cardiovascular : RRR, no JVP, no lower extremity edema Respiratory : good bilateral air entry, no crackles, wheezes or rhonchi Gastrointestinal: soft, lax, Normal bowel sounds, Non tender Skin : Warm, Dry, RLE erythema with tenderness and warmth Neurological : Alert & oriented x3, No focal deficit Objective Data Active Medications Acetaminophen (Acetaminophen 325 Mg Tablet) 650 mg PO Q6H PRN PRN Reason: Pain, Mild (Pain Scale 1-3) Last Admin: 03/05/23 09:33 Dose: 650 mg Documented By: DEVIN Amlodipine Besylate (Amlodipine Besylate 5 Mg Tablet) 5 mg PO DAILY [facility]; Protocol Last Admin: 03/05/23 09:31 Dose: 5 mg Documented By: DEVIN Aspirin (Aspirin Enteric Coated 81 Mg Tablet.) 81 mg PO DAILY [facility] Last Admin: 03/05/23 08:54 Dose: 81 mg Documented By: DEVIN Atorvastatin Calcium (Atorvastatin Calcium 80 Mg Tablet) 80 mg PO BEDTIME [facility] Last Admin: 03/04/23 20:25 Dose: 80 mg Documented By: MARY ANNE Bupropion HCl (Bupropion Hcl Xl 150 Mg Tab.Er.24h) 150 mg PO DAILY [facility] Last Admin: 03/05/23 08:53 Dose: 150 mg Documented By: DEVIN Bupropion HCl (Bupropion Hcl Xl 300 Mg Tab.Er.24h) 300 mg PO DAILY [facility] Last Admin: 03/05/23 08:54 Dose: 300 mg Documented By: DEVIN Calcium Carbonate (Calcium Carbonate 750 Mg Tab.Chew) 750 mg PO Q6H PRN PRN Reason: Heartburn Last Admin: 03/05/23 01:17 Dose: 750 mg Documented By: ANTONIO Carvedilol (Carvedilol 12.5 Mg Tablet) 50 mg PO BID [facility]; Protocol Last Admin: 03/05/23 08:53 Dose: 50 mg Documented By: DEVIN Dextrose (Dextrose 50 % 25 Gm/50 Ml Syringe) 25 gm IVPUSH Q15M PRN; Protocol PRN Reason: per Hypoglycemia Standing Ord. Doxazosin Mesylate (Doxazosin Mesylate 2 Mg Tablet) 4 mg PO DAILY [facility]; Protocol Last Admin: 03/05/23 08:54 Dose: 4 mg Documented By: DEVIN Empagliflozin (Empagliflozin 10 Mg Tablet) 10 mg PO DAILY [facility] Last Admin: 03/05/23 08:54 Dose: 10 mg Documented By: DEVIN Fenofibrate (Fenofibrate 160 Mg Tablet) 160 mg PO DAILY [facility] Last Admin: 03/05/23 08:54 Dose: 160 mg Documented By: DEVIN Fluticasone Propionate (Fluticasone Propionate Nasal 16 Gm [place]) 1 spray NOSTRIL-B BID [facility] Last Admin: 03/05/23 09:18 Dose: Not Given Documented By: DEVIN Non-Admin Reason: Patient Refused Gabapentin (Gabapentin 300 Mg Capsule) 300 mg PO TID [facility] Last Admin: 03/05/23 08:54 Dose: 300 mg Documented By: DEVIN Glucose (Glucose Gel 15 Gm Gel..Gram.) 15 gm PO Q15M PRN; Protocol PRN Reason: per Hypoglycemia Standing Ord. Sodium Chloride (Sodium Chloride 0.45 %) 1,000 mls @ 100 mls/hr IVCONT .Q10H [facility] Last Admin: 03/05/23 11:20 Dose: 100 mls/hr Documented By: DEVIN Vancomycin HCl 1,250 mg/ (Sodium Chloride) 250 mls @ 166.667 mls/hr IV Q24H [facility] Cefazolin Sodium/Dextrose (Ancef) 2 gm in 50 mls @ 100 mls/hr IV Q8H [facility] Last Infusion: 03/05/23 12:05 Dose: 0 mls/hr Documented By: DEVIN Insulin Glargine (Insulin Glargine,Hum.Rec.Anlog 100 Unit/Ml 10 Ml Vial) 40 unit SUBCUT BID [facility] Insulin Human Lispro (Insulin Lispro 100 Unit/Ml 3 Ml Vial) 0 unit SUBCUT QIDACHS [facility]; Protocol Last Admin: 03/05/23 11:05 Dose: Not Given Documented By: DEVIN Non-Admin Reason: See Note Isosorbide Mononitrate (Isosorbide Mononitrate 30 Mg Tab.Er.24h) 30 mg PO DAILY [facility]; Protocol Last Admin: 03/05/23 08:54 Dose: 30 mg Documented By: DEVIN Magnesium Hydroxide (Milk Of Magnesia 30 Ml Oral.Susp) 30 ml PO DAILY PRN PRN Reason: Constipation Melatonin (Melatonin 3 Mg Tablet) 6 mg PO BEDTIME PRN PRN Reason: Insomnia Morphine Sulfate (Morphine Sulfate 2 Mg/Ml Cartridge) 2 mg IVPUSH Q6H PRN; Protocol PRN Reason: Pain, Severe (Pain Scale 7-10) Last Admin: 03/05/23 00:58 Dose: 2 mg Documented By: ANTONIO Ondansetron HCl (Ondansetron Hcl 4 Mg/2 Ml Vial) 4 mg IVPUSH Q8H PRN PRN Reason: Nausea and Vomiting Pharmacy Consult (Consult Rx Vancomycin Dosing) 1 each MISCELLANE DAILY PRN PRN Reason: Consult order Sodium Chloride (0.9 % Sodium Chloride Flush 3 Ml Syringe) 3 ml IVFLUSH QSHIFT [facility] Last Admin: 03/05/23 07:27 Dose: Not Given Documented By: DEVIN Non-Admin Reason: See Note Labs 03/05/23 06:13 03/05/23 06:13 Labs: Laboratory Results - last 24 hr 03/04/23 03/04/23 03/04/23 13:18 13:28 13:28 MCV 85.5 MCH 28.3 MCHC 33.1 RDW 14.8 Plt Count 151 L MPV 12.1 Immature Gran % (Auto) 0.4 Neut % (Auto) 87.2 H Lymph % (Auto) 5.3 L [place] % (Auto) 6.6 Eos % (Auto) 0.1 Baso % (Auto) 0.4 Lymph # (Auto) 0.8 L [place] # (Auto) 1.0 Eos # (Auto) 0.0 Baso # (Auto) 0.1 Abs Immat Gran (auto) 0.06 H Absolute Neuts (auto) 13.4 H Absolute Nucleated RBC 0.000 Nucleated RBC % (auto) 0.0 PT INR APTT Anion Gap 14 Estim Creat Clear Calc 68.6 Estimated GFR 44 POC Glucose 56 L* Random Glucose 65 Lactic Acid Calcium 10.3 H Magnesium 1.9 Total Bilirubin 1.5 H Direct Bilirubin 0.6 H AST 33 ALT 44 H Alkaline Phosphatase 49 B-Natriuretic Peptide Total Protein 7.8 Albumin 4.4 Lipase 48 COVID-19 ([facility]) COVID-19 Clin Com Influenza Type A (HUMA) Influenza Type B (HUMA) Influenza A & B Note 03/04/23 03/04/23 03/04/23 13:28 13:28 13:50 MCV MCH MCHC RDW Plt Count MPV Immature Gran % (Auto) Neut % (Auto) Lymph % (Auto) [place] % (Auto) Eos % (Auto) Baso % (Auto) Lymph # (Auto) [place] # (Auto) Eos # (Auto) Baso # (Auto) Abs Immat Gran (auto) Absolute Neuts (auto) Absolute Nucleated RBC Nucleated RBC % (auto) PT 16.2 H INR 1.3 H APTT 24.1 L Anion Gap Estim Creat Clear Calc Estimated GFR POC Glucose Random Glucose Lactic Acid Calcium Magnesium Total Bilirubin Direct Bilirubin AST ALT Alkaline Phosphatase B-Natriuretic Peptide 136 H Total Protein Albumin Lipase COVID-19 ([facility]) COVID-19 Clin Com Influenza Type A (HUMA) Negative Influenza Type B (HUMA) Negative Influenza A & B Note See Note 03/04/23 03/04/23 03/04/23 13:50 13:50 14:42 MCV MCH MCHC RDW Plt Count MPV Immature Gran % (Auto) Neut % (Auto) Lymph % (Auto) [place] % (Auto) Eos % (Auto) Baso % (Auto) Lymph # (Auto) [place] # (Auto) Eos # (Auto) Baso # (Auto) Abs Immat Gran (auto) Absolute Neuts (auto) Absolute Nucleated RBC Nucleated RBC % (auto) PT INR APTT Anion Gap Estim Creat Clear Calc Estimated GFR POC Glucose 73 Random Glucose Lactic Acid 1.0 Calcium Magnesium Total Bilirubin Direct Bilirubin AST ALT Alkaline Phosphatase B-Natriuretic Peptide Total Protein Albumin Lipase COVID-19 ([facility]) Negative COVID-19 Clin Com See Note Influenza Type A (HUMA) Influenza Type B (HUMA) Influenza A & B Note 03/04/23 03/04/23 03/04/23 18:05 20:18 20:49 MCV MCH MCHC RDW Plt Count MPV Immature Gran % (Auto) Neut % (Auto) Lymph % (Auto) [place] % (Auto) Eos % (Auto) Baso % (Auto) Lymph # (Auto) [place] # (Auto) Eos # (Auto) Baso # (Auto) Abs Immat Gran (auto) Absolute Neuts (auto) Absolute Nucleated RBC Nucleated RBC % (auto) PT INR APTT Anion Gap Estim Creat Clear Calc Estimated GFR POC Glucose 80 126 H Random Glucose Lactic Acid 0.7 Calcium Magnesium Total Bilirubin Direct Bilirubin AST ALT Alkaline Phosphatase B-Natriuretic Peptide Total Protein Albumin Lipase COVID-19 ([facility]) COVID-19 Clin Com Influenza Type A (HUMA) Influenza Type B (HUMA) Influenza A & B Note 03/05/23 03/05/23 03/05/23 06:13 06:13 07:47 MCV 87.3 MCH 28.0 MCHC 32.1 RDW 14.8 Plt Count 136 L MPV 12.8 H Immature Gran % (Auto) 0.6 H Neut % (Auto) 85.1 H Lymph % (Auto) 6.6 L [place] % (Auto) 7.4 Eos % (Auto) 0.1 Baso % (Auto) 0.2 Lymph # (Auto) 0.8 L [place] # (Auto) 0.9 Eos # (Auto) 0.0 Baso # (Auto) 0.0 Abs Immat Gran (auto) 0.07 H Absolute Neuts (auto) 10.6 H Absolute Nucleated RBC 0.000 Nucleated RBC % (auto) 0.0 PT INR APTT Anion Gap 14 Estim Creat Clear Calc 95.3 Estimated GFR > 60 POC Glucose 63 Random Glucose 70 Lactic Acid Calcium 9.5 D Magnesium Total Bilirubin Direct Bilirubin AST ALT Alkaline Phosphatase B-Natriuretic Peptide Total Protein Albumin Lipase COVID-19 ([facility]) COVID-19 Clin Com Influenza Type A (HUMA) Influenza Type B (HUMA) Influenza A & B Note 03/05/23 03/05/23 08:54 10:51 MCV MCH MCHC RDW Plt Count MPV Immature Gran % (Auto) Neut % (Auto) Lymph % (Auto) [place] % (Auto) Eos % (Auto) Baso % (Auto) Lymph # (Auto) [place] # (Auto) Eos # (Auto) Baso # (Auto) Abs Immat Gran (auto) Absolute Neuts (auto) Absolute Nucleated RBC Nucleated RBC % (auto) PT INR APTT Anion Gap Estim Creat Clear Calc Estimated GFR POC Glucose 119 H 97 Random Glucose Lactic Acid Calcium Magnesium Total Bilirubin Direct Bilirubin AST ALT Alkaline Phosphatase B-Natriuretic Peptide Total Protein Albumin Lipase COVID-19 ([facility]) COVID-19 Clin Com Influenza Type A (HUMA) Influenza Type B (HUMA) Influenza A & B Note Assessment and Plan (1) MINNIE (acute kidney injury): Status: Acute (2) Sepsis: Status: Acute (3) Cellulitis of right leg: Status: Acute (4) Syncope: Status: Acute (5) Hypoglycemia associated with type 2 diabetes mellitus: Status: Acute Plan 57/m with diabetes here with right leg cellulitis with sepsis (criteria = WBC 15 + HR>90), Sepsis d/t RLE Cellulitis infection covering more than 50% of the limb with extension of erythema to groin Continue IV Vanco, Add Cefazolin follow cultures Leg elevation Follow Vanco trough MINNIE Cr 1.2 today, likely pre-renal, DC IVF and recheck tomorrow hold nephrotoxin follow BMP Syncope Likely d/t Orthostatic Hypotension and Hypoglycemia no reported events on Tele monitor Hypoglycemia in Diabetes type 2 Decrease Lantus to 40 units bid for now hold metformin d/t renal failure SSI, diabetic diet HLD continue Statin HTN (hypertension) continue Coreg hold olmesartan d/t renal failure, imdur Sleep apnea--CPAP CAD ASA, Coreg, Statin, imdur Mood desorder/Depression Bupropion DVT prophylaxis: Lovenox Full code Need overnight hosptial stay for cellulitis of more 50% of limbs and needs IV Abx to prevent deterioration Time Spent With Patient Time: Total time managing care of this patient today ____ minutes. Quality Stroke Does the patient have a stroke diagnosis?: No VTE Prior VTE?: No VTE Risk Level:: Medical - moderate - high VTE Device Contraindication: Treatment Not Indicated VTE Drug Contraindication: N/A - Med Ordered
[2023-03-05] MEDS: vancomycin HCL 1,250 MG in 0.9 % Sodium Chloride 250 ML 166.67 MG IV (15:56)
[2023-03-05 16:17] LABS: Glucose, Whole Blood 120 mg/dL (60-115)
[2023-03-05] MEDS: Furosemide 20 MG/2 ML VIAL IVPUSH (17:31)
--- NOTE | 2023-03-05 19:52 | PM.EVENT ---
Event Note Date of Service: 03/05/23 Event Note: xray showing new infiltrate- switched to azithro and ceftriaxone Time Spent With Patient Time: Total time managing care of this patient today ____ minutes.
[2023-03-05] MEDS: Atorvastatin Calcium 80 MG TABLET PO (20:24)
[2023-03-05] MEDS: cefTRIAXone sodium 1 GM in 0.9 % Sodium Chloride 50 ML IV (20:24)
[2023-03-05] MEDS: ondansetron HCL 4 MG/2 ML VIAL IVPUSH (20:40)
[2023-03-05] MEDS: Fluticasone Propionate Nasal 16 GM SPRAY 1 SPRAY NOSTRIL-B (20:56)
[2023-03-05] MEDS: Insulin Glargine,Hum.rec.anlog 100 UNIT/ML 10 ML VIAL 40 UNIT SUBCUT (20:57)
[2023-03-05] MEDS: Azithromycin 500 MG in 0.9 % Sodium Chloride 250 ML 125 MG IV (21:21)
[2023-03-05 21:36] LABS: Glucose, Whole Blood 163 mg/dL (60-115)
[2023-03-06] MEDS: Acetaminophen 325 MG TABLET 650 MG PO ×2 (00:45→08:19)
[2023-03-06 03:51] VITALS: BP 148/78; PULSE 78; RESP 20; TEMP 36.3; O2SAT 93
[2023-03-06] MEDS: Morphine Sulfate 2 MG/ML CARTRIDGE IVPUSH ×2 (04:56→23:34)
[2023-03-06 07:19] LABS: Hematocrit 34.7 % (42.0-52.0); Hemoglobin 11.3 g/dl (14.0-18.0); Mean Corpuscular HGB Conc 32.6 g/dl (31.0-36.0); Mean Corpuscular Hemoglobin 27.9 pg (27.0-33.0); Mean Corpuscular Volume 85.7 fL (80.0-98.0); Mean Platelet Volume 13.1 fL (9.4-12.4); Platelet Count 124 X10*3/uL (160-400); Red Blood Count 4.05 X10*6/uL (4.60-5.80); Red Cell Distribution Width 14.6 % (11.0-16.0); White Blood Count 9.3 X10*3/uL (4.8-10.8)
[2023-03-06 07:27] VITALS: BP 157/83; PULSE 77; RESP 20; TEMP 36.2; O2SAT 98
[2023-03-06 07:32] LABS: Glucose, Whole Blood 96 mg/dL (60-115)
[2023-03-06 07:42] LABS: B Type Natriuretic Peptide 119 pg/mL (<100)
[2023-03-06 07:44] LABS: Anion Gap 11 (12-20); Blood Urea Nitrogen 18 mg/dL (9-16); Carbon Dioxide 27 mmol/L (22-29); Chloride 106 mmol/L (96-108); Estimated Glomerular Filt Rate > 60; Glucose Random 113 mg/dL (60-115); Sodium 141 mmol/L (135-145)
[2023-03-06] MEDS: Gabapentin 300 MG CAPSULE PO ×3 (08:02→22:07)
[2023-03-06] MEDS: carvediloL 12.5 MG TABLET 50 MG PO ×2 (08:02→22:07)
[2023-03-06] MEDS: Aspirin Enteric Coated 81 MG TABLET.DR PO (08:02)
[2023-03-06] MEDS: buPROPion HCl XL 300 MG TAB.ER.24H PO (08:02)
[2023-03-06] MEDS: amLODIPine Besylate 5 MG TABLET PO (08:02)
[2023-03-06] MEDS: Empagliflozin 10 MG TABLET PO (08:02)
[2023-03-06] MEDS: Fenofibrate 160 MG TABLET PO (08:03)
[2023-03-06] MEDS: Doxazosin Mesylate 2 MG TABLET 4 MG PO (08:03)
[2023-03-06] MEDS: buPROPion HCl XL 150 MG TAB.ER.24H PO (08:03)
[2023-03-06] MEDS: 0.9 % Sodium Chloride Flush 3 ML SYRINGE IVFLUSH ×2 (08:04→15:15)
[2023-03-06] MEDS: Fluticasone Propionate Nasal 16 GM SPRAY 1 SPRAY NOSTRIL-B ×2 (08:04→22:08)
[2023-03-06] MEDS: Isosorbide Mononitrate 30 MG TAB.ER.24H PO (08:09)
[2023-03-06] MEDS: ondansetron HCL 4 MG/2 ML VIAL IVPUSH ×2 (08:19→17:14)
[2023-03-06] MEDS: Potassium Chloride Packet 20 MEQ PACKET 40 MEQ PO (08:22)
[2023-03-06] MEDS: Insulin Glargine,Hum.rec.anlog 100 UNIT/ML 10 ML VIAL 40 UNIT SUBCUT (08:38)
--- NOTE | 2023-03-06 11:48 | MHC.CM.PN ---
EMR REVIEWED, PT REMAINS IN IV ABX. BLOOD CULTURES PENDING, NO D/C PLAN FOR TODAY, ANTIC PT WILL DC HOME NO SERVICES TOMORROW 03/07, CM WILL CONT TO FOLLOW DC NEEDS.
[2023-03-06 11:49] VITALS: BP 113/59; PULSE 81; RESP 17; TEMP 36.1; O2SAT 95
[2023-03-06 11:57] LABS: Glucose, Whole Blood 171 mg/dL (60-115)
[2023-03-06] MEDS: Insulin Lispro 100 UNIT/ML 3 ML VIAL SUBCUT (12:28)
--- NOTE | 2023-03-06 12:41 | P.CDIM_ITS ---
PROVIDER RESPONSE TEXT: To clarify, the appropriate diagnosis supported by the clinical indicators: Cellulitis is not due to the Diabetes QUERY TEXT: PHYSICIAN'S DOCUMENTATION REQUEST Date of Query: 03/06/2023 07:48 AM EDT Patient Name: NANCY BRUNNER Admit Date: 03/04/2023 Dear Martha Angulo, A review of the medical record indicates additional documentation may be needed. Please review below and update the documentation accordingly. Clinical Indicators: Cellulitis RLE infection covering more than 50 % of the limb extension of erythema to groin. Diabetes mellitus Type 2/hypoglycemic Please clarify the following regarding the Complications/linking of Diabetes Mellitus (DM) if any: Cellulitis of right leg due to/associated with Diabetes mellitus Type 2 Cellulitis is not due to the Diabetes Other please specify Other (explain)Clinically unable to determine (explain)Thank you, Morenita Diaz, CCS, CDIS Use of terms such as suspected, likely, concern for, or probable (associated with a specific diagnosi s that is being evaluated, monitored, or treated as if it exists) are acceptable and can be coded in the inpatient se tting, when documented at the time of discharge. Please use your independent medical judgment in providing your response. THIS QUERY IS PART OF THE PERMANENT MEDICAL RECORD
--- NOTE | 2023-03-06 12:45 | P.CDIM_ITS ---
PROVIDER RESPONSE TEXT: To clarify, the appropriate diagnosis supported by the clinical indicators: Obesity Due to excess calories QUERY TEXT: PHYSICIAN'S DOCUMENTATION REQUEST Date of Query: 03/06/2023 07:52 AM EDT Patient Name: NANCY BRUNNER Admit Date: 03/04/2023 Dear Martha Angulo, A review of the medical record indicates additional documentation may be needed. Please review below and update the documentation accordingly. Clinical Indicators: BMI: 37.3 124.738kg 6ft If possible, please provide an associated diagnosis related to the abnormal BMI, such as: Overweight Obesity Due to excess calories Obesity Due to other cause Specify the other cause Other (explain)Clinically unable to determine (explain)Thank you, Morenita Diaz, CCS, CDIS Use of terms such as suspected, likely, concern for, or probable (associated with a specific diagnosi s that is being evaluated, monitored, or treated as if it exists) are acceptable and can be coded in the inpatient se tting, when documented at the time of discharge. Please use your independent medical judgment in providing your response. THIS QUERY IS PART OF THE PERMANENT MEDICAL RECORD
--- NOTE | 2023-03-06 14:50 | P.PNIM_ITS ---
Subjective Subjective Date of Service: 03/06/23 Interval History: Seen and evaluated this morning mild improvement in pain RLE with erythema and pain CXR showed new infiltrates Kidney function improving low potassium No more syncope Review of Systems Review of Systems: Yes all other systems are reviewed and are negative Physical Exam Vital Signs: Vital Signs: Last Vital Signs Temp 97.0 F 03/06/23 11:49 Pulse 81 03/06/23 11:49 Resp 17 03/06/23 11:49 BP 113/59 L 03/06/23 11:49 Pulse Ox 95 03/06/23 11:49 O2 Del Method Nasal Cannula 03/06/23 11:49 O2 Flow Rate 6 03/06/23 11:49 BMI result Body Mass Index 37.3 Const: Other: Constitutional : Awake, interactive, not in distress Neck : Normal inspection, Supple Cardiovascular : RRR, no JVP, no lower extremity edema Respiratory : good bilateral air entry, no crackles, wheezes or rhonchi Gastrointestinal: soft, lax, Normal bowel sounds, Non tender Skin : Warm, Dry, RLE less erythema with tenderness and warmth up above knee Neurological : Alert & oriented x3, No focal deficit Objective Data Active Medications Acetaminophen (Acetaminophen 325 Mg Tablet) 650 mg PO Q6H PRN PRN Reason: Pain, Mild (Pain Scale 1-3) Last Admin: 03/06/23 08:19 Dose: 650 mg Documented By: ESTRELLA Amlodipine Besylate (Amlodipine Besylate 5 Mg Tablet) 5 mg PO DAILY [facility]; Protocol Last Admin: 03/06/23 08:02 Dose: 5 mg Documented By: ESTRELLA Aspirin (Aspirin Enteric Coated 81 Mg Tablet.) 81 mg PO DAILY [facility] Last Admin: 03/06/23 08:02 Dose: 81 mg Documented By: ESTRELLA Atorvastatin Calcium (Atorvastatin Calcium 80 Mg Tablet) 80 mg PO BEDTIME [facility] Last Admin: 03/05/23 20:24 Dose: 80 mg Documented By: ANTONIO Bupropion HCl (Bupropion Hcl Xl 150 Mg Tab.Er.24h) 150 mg PO DAILY [facility] Last Admin: 03/06/23 08:03 Dose: 150 mg Documented By: ESTRELLA Bupropion HCl (Bupropion Hcl Xl 300 Mg Tab.Er.24h) 300 mg PO DAILY [facility] Last Admin: 03/06/23 08:02 Dose: 300 mg Documented By: ESTRELLA Calcium Carbonate (Calcium Carbonate 750 Mg Tab.Chew) 750 mg PO Q6H PRN PRN Reason: Heartburn Last Admin: 03/05/23 16:00 Dose: 750 mg Documented By: DEVIN Carvedilol (Carvedilol 12.5 Mg Tablet) 50 mg PO BID [facility]; Protocol Last Admin: 03/06/23 08:02 Dose: 50 mg Documented By: ESTRELLA Dextrose (Dextrose 50 % 25 Gm/50 Ml Syringe) 25 gm IVPUSH Q15M PRN; Protocol PRN Reason: per Hypoglycemia Standing Ord. Doxazosin Mesylate (Doxazosin Mesylate 2 Mg Tablet) 4 mg PO DAILY [facility]; Protocol Last Admin: 03/06/23 08:03 Dose: 4 mg Documented By: ESTRELLA Empagliflozin (Empagliflozin 10 Mg Tablet) 10 mg PO DAILY [facility] Last Admin: 03/06/23 08:02 Dose: 10 mg Documented By: ESTRELLA Fenofibrate (Fenofibrate 160 Mg Tablet) 160 mg PO DAILY [facility] Last Admin: 03/06/23 08:03 Dose: 160 mg Documented By: ESTRELLA Fluticasone Propionate (Fluticasone Propionate Nasal 16 Gm [place]) 1 spray NOSTRIL-B BID [facility] Last Admin: 03/06/23 08:04 Dose: 1 spray Documented By: ESTRELLA Gabapentin (Gabapentin 300 Mg Capsule) 300 mg PO TID [facility] Last Admin: 03/06/23 08:02 Dose: 300 mg Documented By: ESTRELLA Glucose (Glucose Gel 15 Gm Gel..Gram.) 15 gm PO Q15M PRN; Protocol PRN Reason: per Hypoglycemia Standing Ord. Vancomycin HCl 1,250 mg/ (Sodium Chloride) 250 mls @ 166.667 mls/hr IV Q24H [facility] Last Infusion: 03/05/23 17:26 Dose: 0 mls/hr Documented By: DEVIN Azithromycin 500 mg/ Sodium (Chloride) 250 mls @ 125 mls/hr IV Q24H [facility] Last Infusion: 03/05/23 23:33 Dose: 0 mls/hr Documented By: ANTONIO Ceftriaxone Sodium 1 gm/ (Sodium Chloride) 50 mls @ 100 mls/hr IV Q24H [facility] Last Infusion: 03/05/23 21:13 Dose: 0 mls/hr Documented By: ANTONIO Insulin Glargine (Insulin Glargine,Hum.Rec.Anlog 100 Unit/Ml 10 Ml Vial) 40 unit SUBCUT BID [facility] Last Admin: 03/06/23 08:38 Dose: 40 unit Documented By: ESTRELLA Insulin Human Lispro (Insulin Lispro 100 Unit/Ml 3 Ml Vial) 0 unit SUBCUT QIDACHS [facility]; Protocol Last Admin: 03/06/23 12:28 Dose: 2 unit Documented By: ESTRELLA Isosorbide Mononitrate (Isosorbide Mononitrate 30 Mg Tab.Er.24h) 30 mg PO DAILY [facility]; Protocol Last Admin: 03/06/23 08:09 Dose: 30 mg Documented By: ESTRELLA Magnesium Hydroxide (Milk Of Magnesia 30 Ml Oral.Susp) 30 ml PO DAILY PRN PRN Reason: Constipation Melatonin (Melatonin 3 Mg Tablet) 6 mg PO BEDTIME PRN PRN Reason: Insomnia Morphine Sulfate (Morphine Sulfate 2 Mg/Ml Cartridge) 2 mg IVPUSH Q6H PRN; Protocol PRN Reason: Pain, Severe (Pain Scale 7-10) Last Admin: 03/06/23 04:56 Dose: 2 mg Documented By: ANTONIO Ondansetron HCl (Ondansetron Hcl 4 Mg/2 Ml Vial) 4 mg IVPUSH Q8H PRN PRN Reason: Nausea and Vomiting Last Admin: 03/06/23 08:19 Dose: 4 mg Documented By: ESTRELLA Pharmacy Consult (Consult Rx Vancomycin Dosing) 1 each MISCELLANE DAILY PRN PRN Reason: Consult order Sodium Chloride (0.9 % Sodium Chloride Flush 3 Ml Syringe) 3 ml IVFLUSH QSHIFT [facility] Last Admin: 03/06/23 08:04 Dose: 3 ml Documented By: ESTRELLA Labs 03/06/23 06:25 03/06/23 06:25 Labs: Laboratory Results - last 24 hr 03/05/23 03/05/23 03/06/23 16:04 21:26 06:25 MCV 85.7 MCH 27.9 MCHC 32.6 RDW 14.6 Plt Count 124 L MPV 13.1 H Absolute Nucleated RBC 0.000 Nucleated RBC % (auto) 0.0 Anion Gap Estim Creat Clear Calc Estimated GFR POC Glucose 120 H 163 H Random Glucose Calcium B-Natriuretic Peptide 03/06/23 03/06/23 03/06/23 06:25 06:25 06:25 MCV MCH MCHC RDW Plt Count MPV Absolute Nucleated RBC Nucleated RBC % (auto) Anion Gap 11 L Estim Creat Clear Calc 121.0 Cancelled Estimated GFR > 60 Cancelled POC Glucose Random Glucose 113 Calcium 9.0 B-Natriuretic Peptide 119 H 03/06/23 03/06/23 07:26 11:48 MCV MCH MCHC RDW Plt Count MPV Absolute Nucleated RBC Nucleated RBC % (auto) Anion Gap Estim Creat Clear Calc Estimated GFR POC Glucose 96 171 H Random Glucose Calcium B-Natriuretic Peptide Microbiology Microbiology Results: Microbiology 03/04/23 13:50 Blood Culture - Preliminary Blood - Venous No growth after 24 hours. 03/04/23 13:50 Blood Culture - Preliminary Blood - Venous No growth after 24 hours. Assessment and Plan (1) Hypoglycemia associated with type 2 diabetes mellitus: Status: Acute (2) MINNIE (acute kidney injury): Status: Acute (3) Sepsis: Status: Acute (4) Cellulitis of right leg: Status: Acute (5) Pneumonia: Status: Acute (6) Acute respiratory failure with hypoxia: Status: Acute Plan 57/m with diabetes here with right leg cellulitis with sepsis (criteria = WBC 15 + HR>90), Sepsis d/t RLE Cellulitis infection covering more than 50% of the limb with extension of erythema to groin Continue IV Vanco and Ceftriaxone follow cultures Leg elevation Follow Vanco trough Acute hypoxic respiratory failure 2/2 community aquired Pneumonia CXR showed new infiltrates covered with CTX and Geovanna wean O2 down as tolerated MINNIE Cr 0.9 hold nephrotoxin follow BMP Syncope Likely d/t Orthostatic Hypotension and Hypoglycemia no reported events on Tele monitor Hypoglycemia in Diabetes type 2 Decrease Lantus to 40 units bid for now hold metformin d/t renal failure SSI, diabetic diet HLD continue Statin HTN (hypertension) continue Coreg hold olmesartan d/t renal failure, imdur Sleep apnea--CPAP CAD ASA, Coreg, Statin, imdur Mood desorder/Depression Bupropion DVT prophylaxis: Lovenox Full code Need overnight hosptial stay for cellulitis of more 50% of limbs, hypoxia 2/2 pneumonia and needs IV Abx to prevent deterioration Time Spent With Patient Time: Total time managing care of this patient today ____ minutes. Quality Stroke Does the patient have a stroke diagnosis?: No VTE Prior VTE?: No VTE Risk Level:: Medical - moderate - high VTE Device Contraindication: Treatment Not Indicated VTE Drug Contraindication: N/A - Med Ordered
[2023-03-06] MEDS: vancomycin HCL 1,250 MG in 0.9 % Sodium Chloride 250 ML 166.67 MG IV (15:20)
[2023-03-06 15:34] VITALS: BP 143/76; PULSE 86; RESP 18; TEMP 36.5; O2SAT 96
[2023-03-06 16:30] LABS: Glucose, Whole Blood 139 mg/dL (60-115)
[2023-03-06] MEDS: Furosemide 40 MG/4 ML VIAL IVPUSH (18:32)
[2023-03-06] MEDS: Clindamycin Phosphate/D5W 600 MG/50 ML PIGGYBACK 100 MG IV (18:32)
[2023-03-06 19:09] VITALS: BP 179/87; PULSE 88; RESP 18; TEMP 36.4; O2SAT 95
[2023-03-06 20:52] LABS: Glucose, Whole Blood 140 mg/dL (60-115)
--- NOTE | 2023-03-06 20:56 | PC.NURSE ---
HS POC 140. Covering Dr. Jimenez notified, fasting AM glucose and POCs trend discussed, scheduled 40 lantus held per MD.
[2023-03-06] MEDS: Atorvastatin Calcium 80 MG TABLET PO (22:07)
[2023-03-06] MEDS: Azithromycin 500 MG in 0.9 % Sodium Chloride 250 ML 125 MG IV (23:34)
[2023-03-06 23:51] VITALS: BP 152/84; PULSE 88; RESP 20; TEMP 37.4; O2SAT 93
[2023-03-07] MEDS: Clindamycin Phosphate/D5W 600 MG/50 ML PIGGYBACK 100 MG IV ×4 (02:00→20:16)
[2023-03-07 04:00] VITALS: BP 124/72; PULSE 79; RESP 20; TEMP 36.4; O2SAT 93
[2023-03-07 07:23] VITALS: BP 168/89; PULSE 82; RESP 17; TEMP 36.2; O2SAT 95
[2023-03-07 07:34] LABS: Glucose, Whole Blood 74 mg/dL (60-115)
[2023-03-07 07:43] LABS: Hematocrit 35.5 % (42.0-52.0); Hemoglobin 11.3 g/dl (14.0-18.0); Mean Corpuscular HGB Conc 31.8 g/dl (31.0-36.0); Mean Corpuscular Hemoglobin 27.7 pg (27.0-33.0); Mean Platelet Volume 13.3 fL (9.4-12.4); Platelet Count 141 X10*3/uL (160-400); Red Blood Count 4.08 X10*6/uL (4.60-5.80); Red Cell Distribution Width 14.9 % (11.0-16.0); White Blood Count 8.5 X10*3/uL (4.8-10.8)
[2023-03-07 07:55] LABS: Anion Gap 10 (12-20); Blood Urea Nitrogen 20 mg/dL (9-16); Calcium 9.3 mg/dL (8.4-10.2); Carbon Dioxide 30 mmol/L (22-29); Chloride 106 mmol/L (96-108); Creatinine Clr Calc Pharmacy 113.4; Estimated Glomerular Filt Rate > 60; Glucose Random 83 mg/dL (60-115); Potassium 3.4 mmol/L (3.3-5.1); Sodium 143 mmol/L (135-145); Vancomycin Random 5.1 mcg/mL (15-20)
--- NOTE | 2023-03-07 08:21 | HE.PHANOTE ---
RE MAHESH CHANGING DOSE TO 1G Q8H, SUSPECTED AUC 550, TROUGH 14.4. NEXT LEVEL DUE 03/08 @0700 TED
[2023-03-07] MEDS: amLODIPine Besylate 5 MG TABLET PO (08:43)
[2023-03-07] MEDS: carvediloL 12.5 MG TABLET 50 MG PO ×2 (08:43→20:00)
[2023-03-07] MEDS: Doxazosin Mesylate 2 MG TABLET 4 MG PO (08:43)
[2023-03-07] MEDS: buPROPion HCl XL 300 MG TAB.ER.24H PO (08:43)
[2023-03-07] MEDS: buPROPion HCl XL 150 MG TAB.ER.24H PO (08:43)
[2023-03-07] MEDS: Isosorbide Mononitrate 30 MG TAB.ER.24H PO (08:44)
[2023-03-07] MEDS: Fenofibrate 160 MG TABLET PO (08:44)
[2023-03-07] MEDS: Empagliflozin 10 MG TABLET PO (08:44)
[2023-03-07] MEDS: Gabapentin 300 MG CAPSULE PO ×3 (08:44→19:59)
[2023-03-07] MEDS: Acetaminophen 325 MG TABLET 650 MG PO ×3 (08:44→20:00)
[2023-03-07] MEDS: Morphine Sulfate 2 MG/ML CARTRIDGE IVPUSH ×3 (08:46→23:39)
[2023-03-07] MEDS: Insulin Glargine,Hum.rec.anlog 100 UNIT/ML 10 ML VIAL 40 UNIT SUBCUT ×2 (08:46→20:09)
[2023-03-07] MEDS: 0.9 % Sodium Chloride Flush 3 ML SYRINGE IVFLUSH ×3 (08:53→19:59)
[2023-03-07] MEDS: Fluticasone Propionate Nasal 16 GM SPRAY 1 SPRAY NOSTRIL-B ×2 (08:54→20:02)
--- NOTE | 2023-03-07 09:15 | P.CONPL_ITS ---
History of Present Illness History of Present Illness Consult date: 03/07/23 Chief complaint: Sepsis d/t Cellulitis Narrative: This is an inpatient pulmonary consultation. The patient is a 58-year-old gentleman known history obstructive sleep apnea on CPAP who apparently just arrived from a trip to [place]. Upon arrival with was having severe constitutional symptoms. Was found to have significant cellulitis of the right lower extremity. He was admitted to the hospital with sepsis. She has been on antibiotics with some improvement of the erythema on the thigh. Although seems like his legs get more swollen. He did have a negative Doppler study ruling out DVT. The patient started having some hemoptysis. Denies any chest pain. He has also been more short of breath requiring oxygen. He had a chest x-ray which was abnormal with some hazy opacities suggesting some areas of airspace disease are regular failing. Sh likely related to the hemoptysis and diffuse alveolar hemorrhage. At this point the more concerning possibility is for thromboembolic disease from his lower extremity. He is going to undergo ultrasound of the lower extremities but I do believe he needs a CTA to rule out PE at this time. Review of Systems Constitutional: Constitutional: Denies fever(s) Eyes: Eyes: Denies change in vision ENT: Denies throat swelling Cardiovascular: Cardiovascular: Reports dyspnea Respiratory: Respiratory: Reports dyspnea and Denies wheezing Gastrointestinal: Gastrointestinal: Reports no additional gastrointestinal complaints Musculoskeletal: Musculoskeletal: Reports abnormal gait, Reports myalgias and Reports joint swelling Neurologic: Reports abnormal gait Hematologic/Lymphatic: Hematologic/Lymphatic: Reports easy bleeding and Denies easy bruising Allergic/Immunologic: Allergic/Immunologic: Denies throat swelling and Denies wheezing PMFSH Past Medical History Medical History (Updated 03/07/23 @ 09:24 by Vik Anaya MD) Diabetes Heart disease High cholesterol High triglycerides HTN (hypertension) SARAH (obstructive sleep apnea) Sleep apnea Surgical History Surgical History H/O heart artery stent S/P reconstruction of ligament of knee joint Social History Social History Household Members: Spouse Housing: House Do you presently have visiting nurse or other home services: No Patient Tobacco Use Status: Never used Tobacco Smoked in Last 30 Days: No Use of substances other than those prescribed or required for medical reasons: No Currently Displaying Signs/Symptoms of Drug Intoxication Withdrawal: No Have you been hit, kicked, punched, or otherwise hurt by someone within the past year? If so, by whom?: No Do you feel safe in your current relationship?: Yes Is there a partner from a previous relationship who is making you feel unsafe now?: No Are you made to feel afraid or neglected: No Advance Directives: No Advance Directives Information Provided: Yes Do you have thoughts of harming others: None Do you have a plan to hurt others: No Plan Recently lost weight without trying: No Eating poorly because of decreased appetite: No Poor oral hygiene: No service: No Meds Allergies Allergy/AdvReac Type Severity Reaction Status Date / Time amoxicillin [Augmentin] Allergy Unknown Verified 03/10/18 00:00 clavulanic acid [Augmentin] Allergy Unknown Verified 03/10/18 00:00 Active Medications: Current Medications Acetaminophen (Acetaminophen 325 Mg Tablet) 650 mg PO Q6H PRN PRN Reason: Pain, Mild (Pain Scale 1-3) Last Admin: 03/07/23 08:44 Dose: 650 mg Amlodipine Besylate (Amlodipine Besylate 5 Mg Tablet) 5 mg PO DAILY [facility]; Leo col Last Admin: 03/07/23 08:43 Dose: 5 mg Aspirin (Aspirin Enteric Coated 81 Mg Tablet.Dr) 81 mg PO DAILY [facility] Last Admin: 03/06/23 08:02 Dose: 81 mg Atorvastatin Calcium (Atorvastatin Calcium 80 Mg Tablet) 80 mg PO BEDTIME [facility] Last Admin: 03/06/23 22:07 Dose: 80 mg Bupropion HCl (Bupropion Hcl Xl 150 Mg Tab.Er.24h) 150 mg PO DAILY [facility] Last Admin: 03/07/23 08:43 Dose: 150 mg Bupropion HCl (Bupropion Hcl Xl 300 Mg Tab.Er.24h) 300 mg PO DAILY [facility] Last Admin: 03/07/23 08:43 Dose: 300 mg Calcium Carbonate (Calcium Carbonate 750 Mg Tab.Chew) 750 mg PO Q6H PRN PRN Reason: Heartburn Last Admin: 03/05/23 16:00 Dose: 750 mg Carvedilol (Carvedilol 12.5 Mg Tablet) 50 mg PO BID [facility]; Protocol Last Admin: 03/07/23 08:43 Dose: 50 mg Dextrose (Dextrose 50 % 25 Gm/50 Ml Syringe) 25 gm IVPUSH Q15M PRN; Protocol PRN Reason: per Hypoglycemia Standing Ord. Doxazosin Mesylate (Doxazosin Mesylate 2 Mg Tablet) 4 mg PO DAILY [facility]; Protocol Last Admin: 03/07/23 08:43 Dose: 4 mg Empagliflozin (Empagliflozin 10 Mg Tablet) 10 mg PO DAILY [facility] Last Admin: 03/07/23 08:44 Dose: 10 mg Fenofibrate (Fenofibrate 160 Mg Tablet) 160 mg PO DAILY [facility] Last Admin: 03/07/23 08:44 Dose: 160 mg Fluticasone Propionate (Fluticasone Propionate Nasal 16 Gm [place]) 1 spray NOSTRIL-B BID [facility] Last Admin: 03/07/23 08:54 Dose: 1 spray Gabapentin (Gabapentin 300 Mg Capsule) 300 mg PO TID [facility] Last Admin: 03/07/23 08:44 Dose: 300 mg Glucose (Glucose Gel 15 Gm Gel..Gram.) 15 gm PO Q15M PRN; Protocol PRN Reason: per Hypoglycemia Standing Ord. Clindamycin Phosphate (Cleocin) 600 mg in 50 mls @ 100 mls/hr IV Q6H [facility] Last Admin: 03/07/23 08:53 Dose: 100 mls/hr Azithromycin 500 mg/ Sodium (Chloride) 250 mls @ 125 mls/hr IV Q24H [facility] Vancomycin HCl 1,000 mg/ (Sodium Chloride) 270 mls @ 270 mls/hr IV Q8H [facility] Insulin Glargine (Insulin Glargine,Hum.Rec.Anlog 100 Unit/Ml 10 Ml Vial) 40 unit SUBCUT BID [facility] Last Admin: 03/07/23 08:46 Dose: 40 unit Insulin Human Lispro (Insulin Lispro 100 Unit/Ml 3 Ml Vial) 0 unit SUBCUT QIDACHS [facility]; Protocol Last Admin: 03/07/23 08:47 Dose: Not Given Isosorbide Mononitrate (Isosorbide Mononitrate 30 Mg Tab.Er.24h) 30 mg PO DAILY [facility]; Protocol Last Admin: 03/07/23 08:44 Dose: 30 mg Magnesium Hydroxide (Milk Of Magnesia 30 Ml Oral.Susp) 30 ml PO DAILY PRN PRN Reason: Constipation Melatonin (Melatonin 3 Mg Tablet) 6 mg PO BEDTIME PRN PRN Reason: Insomnia Morphine Sulfate (Morphine Sulfate 2 Mg/Ml Cartridge) 2 mg IVPUSH Q6H PRN; Protocol PRN Reason: Pain, Severe (Pain Scale 7-10) Last Admin: 03/07/23 08:46 Dose: 2 mg Ondansetron HCl (Ondansetron Hcl 4 Mg/2 Ml Vial) 4 mg IVPUSH Q8H PRN PRN Reason: Nausea and Vomiting Last Admin: 03/06/23 17:14 Dose: 4 mg Pharmacy Consult (Consult Rx Vancomycin Dosing) 1 each MISCELLANE DAILY PRN PRN Reason: Consult order Sodium Chloride (0.9 % Sodium Chloride Flush 3 Ml Syringe) 3 ml IVFLUSH [facility] Last Admin: 03/07/23 08:53 Dose: 3 ml Home Medications Medication Instructions Recorded Confirmed Last Taken Type aspirin 81 mg tablet,delayed 81 mg PO DAILY 03/04/23 03/04/23 Unknown History release atorvastatin 80 mg tablet 80 mg PO BEDTIME 03/04/23 03/04/23 Unknown History bupropion HCl 150 mg 24 hr tablet, 150 mg PO DAILY 03/04/23 03/04/23 Unknown History extended release bupropion HCl 300 mg 24 hr tablet, 300 mg PO DAILY 03/04/23 03/04/23 Unknown History extended release carvedilol 25 mg tablet 50 mg PO BID 03/04/23 03/04/23 Unknown History dapagliflozin propanediol 10 mg 10 mg PO DAILY 03/04/23 03/04/23 Unknown History tablet (Farxiga) doxazosin 4 mg tablet 4 mg PO DAILY 03/04/23 03/04/23 Unknown History dulaglutide 3 mg/0.5 mL 3 mg subcut [place] 03/04/23 03/04/23 Unknown History subcutaneous pen injector ([facility]) fenofibrate 160 mg tablet 160 mg PO DAILY 03/04/23 03/04/23 Unknown History fluticasone propionate 50 1 spray intranasal BID 03/04/23 03/04/23 Unknown History mcg/actuation nasal spray,suspension gabapentin 300 mg capsule 300 mg PO TID 03/04/23 03/04/23 Unknown History insulin degludec 100 unit/mL (3 75 unit subcut BID 03/04/23 03/04/23 Unknown History mL) subcutaneous pen (Tresiba FlexTouch U-100 insulin) isosorbide mononitrate 30 mg 30 mg PO DAILY 03/04/23 03/04/23 Unknown History tablet,extended release 24 hr metformin 500 mg tablet,extended 1,000 mg PO BID 03/04/23 03/04/23 Unknown History release 24 hr olmesartan 20 mg tablet 20 mg PO DAILY 03/04/23 03/04/23 Unknown History olmesartan 40 1 tab PO DAILY 03/04/23 03/04/23 Unknown History mg-hydrochlorothiazide 25 mg tablet Physical Exam Vital Signs: Vital Signs: Last Vital Signs Temp 97.1 F 03/07/23 07:23 Pulse 82 03/07/23 07:23 Resp 17 03/07/23 07:23 BP 168/89 H 03/07/23 07:23 Pulse Ox 95 03/07/23 07:23 O2 Del Method Nasal Cannula 03/07/23 07:23 O2 Flow Rate 6 03/07/23 07:23 BMI result Body Mass Index 37.3 Const: General: comfortable HEENT: Head: Yes normocephalic Eyes: General: appearance normal, both eyes and all related structures Neck: Neck: Yes supple Chest: Chest palpation & inspection: normal inspection of the chest Resp: Effort & Inspection: normal respiratory effort Auscultation: diminished lung sounds Cardio: Rate: regular rate Rhythm: regular rhythm Heart sounds: S1 normal heart sound present, S2 normal heart sound present and Murmur heart sound present GI: Palpation (GI): Soft to palpation Skin: General skin exam: erythema Extrem: Right lower extremity: edema Results Laboratory Findings 03/07/23 06:35 03/07/23 06:35 ABG, PT/INR, D-dimer: PT/INR, D-dimer PT 16.2 SEC (11.1-13.3) H 03/04/23 13:28 INR 1.3 (0.9-1.1) H 03/04/23 13:28 Abnormal lab findings: Abnormal Labs 03/04/23 03/04/23 03/04/23 13:18 13:28 13:28 WBC 15.3 H RBC Hgb Hct Plt Count 151 L MPV Immature Gran % (Auto) Neut % (Auto) 87.2 H Lymph % (Auto) 5.3 L Lymph # (Auto) 0.8 L Abs Immat Gran (auto) 0.06 H Absolute Neuts (auto) 13.4 H PT INR APTT Potassium 3.1 L Carbon Dioxide Anion Gap BUN 26 H Creatinine 1.64 H POC Glucose 56 L* Calcium 10.3 H Total Bilirubin 1.5 H Direct Bilirubin 0.6 H ALT 44 H Troponin I High Sens B-Natriuretic Peptide Random Vancomycin 03/04/23 03/04/23 03/04/23 13:28 13:28 13:28 WBC RBC Hgb Hct Plt Count MPV Immature Gran % (Auto) Neut % (Auto) Lymph % (Auto) Lymph # (Auto) Abs Immat Gran (auto) Absolute Neuts (auto) PT 16.2 H INR 1.3 H APTT 24.1 L Potassium Carbon Dioxide Anion Gap BUN Creatinine POC Glucose Calcium Total Bilirubin Direct Bilirubin ALT Troponin I High Sens 47.7 H B-Natriuretic Peptide 136 H Random Vancomycin 03/04/23 03/05/23 03/05/23 20:49 06:13 06:13 WBC 12.4 H RBC Hgb 13.0 L Hct 40.5 L Plt Count 136 L MPV 12.8 H Immature Gran % (Auto) 0.6 H Neut % (Auto) 85.1 H Lymph % (Auto) 6.6 L Lymph # (Auto) 0.8 L Abs Immat Gran (auto) 0.07 H Absolute Neuts (auto) 10.6 H PT INR APTT Potassium Carbon Dioxide Anion Gap BUN 20 H Creatinine POC Glucose 126 H Calcium Total Bilirubin Direct Bilirubin ALT Troponin I High Sens B-Natriuretic Peptide Random Vancomycin 03/05/23 03/05/23 03/05/23 08:54 16:04 21:26 WBC RBC Hgb Hct Plt Count MPV Immature Gran % (Auto) Neut % (Auto) Lymph % (Auto) Lymph # (Auto) Abs Immat Gran (auto) Absolute Neuts (auto) PT INR APTT Potassium Carbon Dioxide Anion Gap BUN Creatinine POC Glucose 119 H 120 H 163 H Calcium Total Bilirubin Direct Bilirubin ALT Troponin I High Sens B-Natriuretic Peptide Random Vancomycin 03/06/23 03/06/23 03/06/23 06:25 06:25 06:25 WBC RBC 4.05 L Hgb 11.3 L Hct 34.7 L Plt Count 124 L MPV 13.1 H Immature Gran % (Auto) Neut % (Auto) Lymph % (Auto) Lymph # (Auto) Abs Immat Gran (auto) Absolute Neuts (auto) PT INR APTT Potassium 3.0 L Carbon Dioxide Anion Gap 11 L BUN 18 H Creatinine POC Glucose Calcium Total Bilirubin Direct Bilirubin ALT Troponin I High Sens B-Natriuretic Peptide 119 H Random Vancomycin 03/06/23 03/06/23 03/06/23 11:48 16:22 20:39 WBC RBC Hgb Hct Plt Count MPV Immature Gran % (Auto) Neut % (Auto) Lymph % (Auto) Lymph # (Auto) Abs Immat Gran (auto) Absolute Neuts (auto) PT INR APTT Potassium Carbon Dioxide Anion Gap BUN Creatinine POC Glucose 171 H 139 H 140 H Calcium Total Bilirubin Direct Bilirubin ALT Troponin I High Sens B-Natriuretic Peptide Random Vancomycin 03/07/23 03/07/23 03/07/23 06:35 06:35 06:35 WBC RBC 4.08 L Hgb 11.3 L Hct 35.5 L Plt Count 141 L MPV 13.3 H Immature Gran % (Auto) Neut % (Auto) Lymph % (Auto) Lymph # (Auto) Abs Immat Gran (auto) Absolute Neuts (auto) PT INR APTT Potassium Carbon Dioxide 30 H Anion Gap 10 L BUN 20 H Creatinine POC Glucose Calcium Total Bilirubin Direct Bilirubin ALT Troponin I High Sens B-Natriuretic Peptide Random Vancomycin 5.1 L Microbiology: Microbiology 03/04/23 13:50 Blood - Venous Blood Culture - Preliminary No growth after 48 hours. 03/04/23 13:50 Blood - Venous Blood Culture - Preliminary No growth after 48 hours. Assessment and Plan (1) Acute respiratory failure with hypoxia: Status: Acute (2) Pneumonia: Status: Acute (3) Hemoptysis: Status: Acute (4) Cellulitis of right leg: Status: Acute (5) Right leg swelling: Status: Acute (6) SARAH (obstructive sleep apnea): Status: Acute Plan Urgent CTA to R/O acute thrombo-embolic disease Repeat lower extremity doppler to R/O DVT continue oxygen to keep pox>92% continue CPAP 11 with 2 L oxygen AHI-1.7 continue antibiotic coverage Time Spent With Patient Time: Total time managing care of this patient today ____ minutes. Procedures Date of Service Date of Service: 03/07/23
[2023-03-07] MEDS: vancomycin HCL 1,000 MG in 0.9 % Sodium Chloride 250 ML 270 MG IV (09:30)
--- NOTE | 2023-03-07 11:12 | HO.PM.IMPN ---
Subjective Subjective Date of Service: 03/07/23 Interval History: Seen and evaluated this morning improvement in pain RLE with erythema and pain reporting coughing bloody tinged sputum Kidney function improving No more syncope Review of Systems Review of Systems: Yes all other systems are reviewed and are negative Physical Exam Vital Signs: Vital Signs: Last Vital Signs Temp 97.1 F 03/07/23 07:23 Pulse 82 03/07/23 07:23 Resp 17 03/07/23 07:23 BP 168/89 H 03/07/23 07:23 Pulse Ox 95 03/07/23 07:23 O2 Del Method Nasal Cannula 03/07/23 07:23 O2 Flow Rate 6 03/07/23 07:23 BMI result Body Mass Index 37.3 Const: Other: Constitutional : Awake, interactive, not in distress Neck : Normal inspection, Supple Cardiovascular : RRR, no JVP, no lower extremity edema Respiratory : good bilateral air entry, basal fine crackles, no significant wheezes or rhonchi Gastrointestinal: soft, lax, Normal bowel sounds, Non tender Skin : Warm, Dry, RLE less erythema with tenderness and warmth up above knee Neurological : Alert & oriented x3, No focal deficit Objective Data Active Medications Acetaminophen (Acetaminophen 325 Mg Tablet) 650 mg PO Q6H PRN PRN Reason: Pain, Mild (Pain Scale 1-3) Last Admin: 03/07/23 08:44 Dose: 650 mg Documented By: MARY Amlodipine Besylate (Amlodipine Besylate 5 Mg Tablet) 5 mg PO DAILY [facility]; Protocol Last Admin: 03/07/23 08:43 Dose: 5 mg Documented By: MARY Aspirin (Aspirin Enteric Coated 81 Mg Tablet.) 81 mg PO DAILY [facility] Last Admin: 03/06/23 08:02 Dose: 81 mg Documented By: ESTRELLA Atorvastatin Calcium (Atorvastatin Calcium 80 Mg Tablet) 80 mg PO BEDTIME [facility] Last Admin: 03/06/23 22:07 Dose: 80 mg Documented By: NATE Bupropion HCl (Bupropion Hcl Xl 150 Mg Tab.Er.24h) 150 mg PO DAILY [facility] Last Admin: 03/07/23 08:43 Dose: 150 mg Documented By: MARY Bupropion HCl (Bupropion Hcl Xl 300 Mg Tab.Er.24h) 300 mg PO DAILY [facility] Last Admin: 03/07/23 08:43 Dose: 300 mg Documented By: MARY Calcium Carbonate (Calcium Carbonate 750 Mg Tab.Chew) 750 mg PO Q6H PRN PRN Reason: Heartburn Last Admin: 03/05/23 16:00 Dose: 750 mg Documented By: DEVIN Carvedilol (Carvedilol 12.5 Mg Tablet) 50 mg PO BID [facility]; Protocol Last Admin: 03/07/23 08:43 Dose: 50 mg Documented By: MARY Dextrose (Dextrose 50 % 25 Gm/50 Ml Syringe) 25 gm IVPUSH Q15M PRN; Protocol PRN Reason: per Hypoglycemia Standing Ord. Doxazosin Mesylate (Doxazosin Mesylate 2 Mg Tablet) 4 mg PO DAILY [facility]; Protocol Last Admin: 03/07/23 08:43 Dose: 4 mg Documented By: MARY Empagliflozin (Empagliflozin 10 Mg Tablet) 10 mg PO DAILY [facility] Last Admin: 03/07/23 08:44 Dose: 10 mg Documented By: MARY Fenofibrate (Fenofibrate 160 Mg Tablet) 160 mg PO DAILY [facility] Last Admin: 03/07/23 08:44 Dose: 160 mg Documented By: MARY Fluticasone Propionate (Fluticasone Propionate Nasal 16 Gm [place]) 1 spray NOSTRIL-B BID [facility] Last Admin: 03/07/23 08:54 Dose: 1 spray Documented By: MARY Gabapentin (Gabapentin 300 Mg Capsule) 300 mg PO TID [facility] Last Admin: 03/07/23 08:44 Dose: 300 mg Documented By: MARY Glucose (Glucose Gel 15 Gm Gel..Gram.) 15 gm PO Q15M PRN; Protocol PRN Reason: per Hypoglycemia Standing Ord. Clindamycin Phosphate (Cleocin) 600 mg in 50 mls @ 100 mls/hr IV Q6H [facility] Last Admin: 03/07/23 08:53 Dose: 100 mls/hr Documented By: MARY Azithromycin 500 mg/ Sodium (Chloride) 250 mls @ 125 mls/hr IV Q24H [facility] Vancomycin HCl 1,000 mg/ (Sodium Chloride) 270 mls @ 270 mls/hr IV Q8H [facility] Last Admin: 03/07/23 09:30 Dose: 270 mls/hr Documented By: MARY Insulin Glargine (Insulin Glargine,Hum.Rec.Anlog 100 Unit/Ml 10 Ml Vial) 40 unit SUBCUT BID [facility] Last Admin: 03/07/23 08:46 Dose: 40 unit Documented By: MARY Insulin Human Lispro (Insulin Lispro 100 Unit/Ml 3 Ml Vial) 0 unit SUBCUT QIDACHS [facility]; Protocol Last Admin: 03/07/23 08:47 Dose: Not Given Documented By: MARY Non-Admin Reason: No Insulin Coverage Isosorbide Mononitrate (Isosorbide Mononitrate 30 Mg Tab.Er.24h) 30 mg PO DAILY [facility]; Protocol Last Admin: 03/07/23 08:44 Dose: 30 mg Documented By: MARY Magnesium Hydroxide (Milk Of Magnesia 30 Ml Oral.Susp) 30 ml PO DAILY PRN PRN Reason: Constipation Melatonin (Melatonin 3 Mg Tablet) 6 mg PO BEDTIME PRN PRN Reason: Insomnia Morphine Sulfate (Morphine Sulfate 2 Mg/Ml Cartridge) 2 mg IVPUSH Q6H PRN; Protocol PRN Reason: Pain, Severe (Pain Scale 7-10) Last Admin: 03/07/23 08:46 Dose: 2 mg Documented By: MARY Ondansetron HCl (Ondansetron Hcl 4 Mg/2 Ml Vial) 4 mg IVPUSH Q8H PRN PRN Reason: Nausea and Vomiting Last Admin: 03/06/23 17:14 Dose: 4 mg Documented By: DAGOORRMonica Pharmacy Consult (Consult Rx Vancomycin Dosing) 1 each MISCELLANE DAILY PRN PRN Reason: Consult order Sodium Chloride (0.9 % Sodium Chloride Flush 3 Ml Syringe) 3 ml IVFLUSH QSHIFT [facility] Last Admin: 03/07/23 08:53 Dose: 3 ml Documented By: MARY Labs 03/07/23 06:35 03/07/23 06:35 Labs: Laboratory Results - last 24 hr 03/06/23 03/06/23 03/06/23 11:48 16:22 20:39 MCV MCH MCHC RDW Plt Count MPV Absolute Nucleated RBC Nucleated RBC % (auto) Anion Gap Estim Creat Clear Calc Estimated GFR POC Glucose 171 H 139 H 140 H Random Glucose Calcium Random Vancomycin 03/07/23 03/07/23 03/07/23 06:35 06:35 06:35 MCV 87.0 MCH 27.7 MCHC 31.8 RDW 14.9 Plt Count 141 L MPV 13.3 H Absolute Nucleated RBC 0.000 Nucleated RBC % (auto) 0.0 Anion Gap 10 L Estim Creat Clear Calc Cancelled 113.4 Estimated GFR Cancelled > 60 POC Glucose Random Glucose 83 Calcium 9.3 Random Vancomycin 03/07/23 03/07/23 06:35 07:21 MCV MCH MCHC RDW Plt Count MPV Absolute Nucleated RBC Nucleated RBC % (auto) Anion Gap Estim Creat Clear Calc Estimated GFR POC Glucose 74 Random Glucose Calcium Random Vancomycin 5.1 L Microbiology Microbiology Results: Microbiology 03/04/23 13:50 Blood Culture - Preliminary Blood - Venous No growth after 48 hours. 03/04/23 13:50 Blood Culture - Preliminary Blood - Venous No growth after 48 hours. Assessment and Plan (1) Right leg swelling: Status: Acute (2) Hemoptysis: Status: Acute (3) Acute respiratory failure with hypoxia: Status: Acute (4) Pneumonia: Status: Acute (5) Hypoglycemia associated with type 2 diabetes mellitus: Status: Acute Plan 57/m with diabetes here with right leg cellulitis with sepsis (criteria = WBC 15 + HR>90), Sepsis d/t RLE Cellulitis infection covering more than 50% of the limb with extension of erythema to groin Continue IV Clindamycin follow cultures Leg elevation ID consult Acute hypoxic respiratory failure 2/2 community acquired Pneumonia w hemoptysis CXR showed new infiltrates covered with Cindamycin wean O2 down as tolerated Check CTA to r\o PE Pulm input appreciated MINNIE , resolved Improved Cr 0.9 hold nephrotoxin follow BMP Syncope Likely d/t Orthostatic Hypotension and Hypoglycemia no reported events on Tele monitor Hypoglycemia in Diabetes type 2 Decreased Lantus to 40 units bid for now hold metformin d/t renal failure SSI, diabetic diet HLD continue Statin HTN (hypertension) continue Coreg hold olmesartan d/t renal failure, imdur Sleep apnea--CPAP CAD ASA, Coreg, Statin, imdur Mood desorder/Depression Bupropion DVT prophylaxis: Lovenox Full code Need overnight hosptial stay for cellulitis, hypoxia 2/2 pneumonia and needs IV Abx to prevent deterioration Time Spent With Patient Time: Total time managing care of this patient today ____ minutes. Quality Stroke Does the patient have a stroke diagnosis?: No VTE Prior VTE?: No VTE Risk Level:: Medical - moderate - high VTE Device Contraindication: Treatment Not Indicated VTE Drug Contraindication: N/A - Med Ordered
[2023-03-07 11:31] VITALS: BP 137/68; PULSE 75; RESP 18; TEMP 35.7; O2SAT 95
[2023-03-07 11:46] LABS: Glucose, Whole Blood 108 mg/dL (60-115)
[2023-03-07] MEDS: iohexoL 350 MG/ML 100 ML INFUS..BTL IV (12:22)
[2023-03-07 13:45] LABS: Vancomycin Trough 12.3 mcg/mL (10.0-20.0)
[2023-03-07] MEDS: Furosemide 40 MG/4 ML VIAL IVPUSH (14:28)
[2023-03-07 15:12] VITALS: BP 141/71; PULSE 81; RESP 18; TEMP 36.7; O2SAT 96
[2023-03-07 15:26] LABS: Glucose, Whole Blood 157 mg/dL (60-115)
[2023-03-07] MEDS: Insulin Lispro 100 UNIT/ML 3 ML VIAL SUBCUT ×2 (17:05→20:09)
--- NOTE | 2023-03-07 19:15 | PC.NURSE ---
Pt c/o pain to RLE 12/22 this am per pt more painful than previous medicated with morphine and Tylenol with some effect. 2-3+ pitting edema, redness and warmth painful to touch. Elevated throughout shift. OFF unit for CT chest this afternoon. Bedside US preformed. Dr Darby made aware of patient concerns on unit to speak with and patient. Will continue to monitor and report changes
[2023-03-07 19:20] VITALS: BP 158/74; PULSE 88; RESP 18; TEMP 37.1; O2SAT 96
[2023-03-07] MEDS: Atorvastatin Calcium 80 MG TABLET PO (20:00)
[2023-03-07 20:25] LABS: Glucose, Whole Blood 162 mg/dL (60-115)
[2023-03-08] VITALS: BP 156/75; PULSE 85; RESP 20; TEMP 37.1; O2SAT 96
[2023-03-08] MEDS: Clindamycin Phosphate/D5W 600 MG/50 ML PIGGYBACK 100 MG IV ×4 (02:15→22:55)
[2023-03-08 04:00] VITALS: BP 165/70; PULSE 90; RESP 20; TEMP 37.1; O2SAT 93
[2023-03-08 06:56] LABS: Hematocrit 36.7 % (42.0-52.0); Hemoglobin 11.7 g/dl (14.0-18.0); Mean Corpuscular HGB Conc 31.9 g/dl (31.0-36.0); Mean Corpuscular Hemoglobin 27.5 pg (27.0-33.0); Mean Corpuscular Volume 86.4 fL (80.0-98.0); Mean Platelet Volume 12.1 fL (9.4-12.4); Platelet Count 177 X10*3/uL (160-400); Red Blood Count 4.25 X10*6/uL (4.60-5.80); Red Cell Distribution Width 14.8 % (11.0-16.0); White Blood Count 9.9 X10*3/uL (4.8-10.8)
[2023-03-08 07:09] LABS: Anion Gap 13 (12-20); Blood Urea Nitrogen 22 mg/dL (9-16); Calcium 9.1 mg/dL (8.4-10.2); Carbon Dioxide 27 mmol/L (22-29); Chloride 108 mmol/L (96-108); Creatinine Clr Calc Pharmacy 137.2; Estimated Glomerular Filt Rate > 60; Glucose Random 79 mg/dL (60-115); Potassium 3.5 mmol/L (3.3-5.1); Sodium 144 mmol/L (135-145)
[2023-03-08 07:52] LABS: Vancomycin Random 3.1 mcg/mL (15-20)
[2023-03-08 08:09] LABS: Glucose, Whole Blood 72 mg/dL (60-115)
[2023-03-08] MEDS: Insulin Glargine,Hum.rec.anlog 100 UNIT/ML 10 ML VIAL 40 UNIT SUBCUT ×2 (08:31→20:35)
[2023-03-08] MEDS: Acetaminophen 325 MG TABLET 650 MG PO ×2 (08:31→14:19)
[2023-03-08] MEDS: amLODIPine Besylate 5 MG TABLET PO (08:32)
[2023-03-08] MEDS: Empagliflozin 10 MG TABLET PO (08:32)
[2023-03-08] MEDS: Fenofibrate 160 MG TABLET PO (08:32)
[2023-03-08] MEDS: buPROPion HCl XL 300 MG TAB.ER.24H PO (08:32)
[2023-03-08] MEDS: buPROPion HCl XL 150 MG TAB.ER.24H PO (08:32)
[2023-03-08] MEDS: Doxazosin Mesylate 2 MG TABLET 4 MG PO (08:32)
[2023-03-08] MEDS: Isosorbide Mononitrate 30 MG TAB.ER.24H PO (08:32)
[2023-03-08] MEDS: carvediloL 12.5 MG TABLET 50 MG PO ×2 (08:32→20:33)
[2023-03-08] MEDS: Gabapentin 300 MG CAPSULE PO ×3 (08:32→21:00)
[2023-03-08] MEDS: 0.9 % Sodium Chloride Flush 3 ML SYRINGE IVFLUSH ×3 (08:33→20:34)
[2023-03-08] MEDS: Fluticasone Propionate Nasal 16 GM SPRAY 1 SPRAY NOSTRIL-B (08:36)
--- NOTE | 2023-03-08 10:17 | P.PNPL_ITS ---
Subjective Subjective Date of Service: 03/08/23 Interval history: The patient was seen on exam. He did undergo a lower extremity Doppler and also a CTA ruling out DVT and also PE. Although does have some areas of ground-glass opacity primarily in the right upper lobe suggestive of diffuse alveolar hemorrhage specially with hemoptysis. He also has atelectasis and bilateral pleural effusion. He may be a little volume overloaded as well. He is getting diuresed. He did cough up some mucus and I did have some dark tinged blood which is reassuring. The patient has been on antibiotics since the get go. He needs to be seen by infectious disease. This all happened in [place]. Appears to have via lower extremity soft tissue infection. Seems like appears to be little more mottled. Additional imaging studies or specialty evaluation is warranted. The patient is developing some discomfort and burning sensation in the lower extremity need to monitor closely for compartment syndrome. In the meantime the diffuse alveolar hemorrhage likely secondary to this septic process. We will request a workup for vasculitis and connective tissue conditions. If the patient continues without hemoptysis and new with his worsening respiratory symptoms will consider bronchoscopy to further address the diffuse alveolar hemorrhage and provide some cultures. Objective Data Labs 03/08/23 06:43 03/08/23 06:44 Labs: Laboratory Results - last 24 hr 03/07/23 03/07/23 03/07/23 11:31 13:24 15:13 WBC RBC Hgb Hct MCV MCH MCHC RDW Plt Count MPV Absolute Nucleated RBC Nucleated RBC % (auto) Sodium Potassium Chloride Carbon Dioxide Anion Gap BUN Creatinine Estim Creat Clear Calc Estimated GFR POC Glucose 108 157 H Random Glucose Calcium Vancomycin Trough 12.3 Random Vancomycin 03/07/23 03/08/23 03/08/23 20:00 06:43 06:43 WBC 9.9 RBC 4.25 L Hgb 11.7 L Hct 36.7 L MCV 86.4 MCH 27.5 MCHC 31.9 RDW 14.8 Plt Count 177 D MPV 12.1 Absolute Nucleated RBC 0.000 Nucleated RBC % (auto) 0.0 Sodium Potassium Chloride Carbon Dioxide Anion Gap BUN Creatinine Estim Creat Clear Calc Estimated GFR POC Glucose 162 H Random Glucose Calcium Vancomycin Trough Random Vancomycin 3.1 L 03/08/23 03/08/23 06:44 07:59 WBC RBC Hgb Hct MCV MCH MCHC RDW Plt Count MPV Absolute Nucleated RBC Nucleated RBC % (auto) Sodium 144 Potassium 3.5 Chloride 108 Carbon Dioxide 27 Anion Gap 13 BUN 22 H Creatinine 0.81 Estim Creat Clear Calc 137.2 Estimated GFR > 60 POC Glucose 72 Random Glucose 79 Calcium 9.1 Vancomycin Trough Random Vancomycin Microbiology Microbiology Results: Microbiology 03/04/23 13:50 Blood - Venous Blood Culture - Preliminary No growth after 48 hours. 03/04/23 13:50 Blood - Venous Blood Culture - Preliminary No growth after 48 hours. Review of Systems Constitutional: Denies fever(s) Eyes: Denies change in vision Denies throat swelling Cardiovascular: Reports dyspnea Respiratory: Reports dyspnea and Denies wheezing Gastrointestinal: Reports no additional gastrointestinal complaints Musculoskeletal: Reports abnormal gait, Reports myalgias, Reports deformity, Reports arthralgias and Reports joint swelling Reports abnormal gait Hematologic/Lymphatic: Reports easy bleeding and Denies easy bruising Allergic/Immunologic: Denies throat swelling and Denies wheezing Physical Exam Vital Signs: Vital Signs: Last Vital Signs Temp 98.7 F 03/08/23 04:00 Pulse 90 03/08/23 04:00 Resp 20 03/08/23 04:00 BP 165/70 H 03/08/23 04:00 Pulse Ox 93 03/08/23 04:00 O2 Del Method Nasal Cannula 03/08/23 04:00 O2 Flow Rate 5 03/08/23 04:00 BMI result Body Mass Index 37.3 Const: General: comfortable HEENT: Head: Yes normocephalic Eyes: General: appearance normal, both eyes and all related structures Neck: Neck: Yes supple Chest: Chest palpation & inspection: normal inspection of the chest Resp: Effort & Inspection: normal respiratory effort Auscultation: diminished lung sounds Cardio: Rate: regular rate Rhythm: regular rhythm Heart sounds: S1 normal heart sound present, S2 normal heart sound present and Murmur heart sound present GI: Palpation (GI): Soft to palpation Skin: General skin exam: erythema and mottling (RLE) Trauma: no punctures noted Extrem: Right lower extremity: edema Procedures Date of Service Date of Service: 03/08/23 Assessment and Plan Assessment and plan (1) SARAH (obstructive sleep apnea): Status: Acute (2) Right leg swelling: Status: Acute (3) Hemoptysis: Status: Acute (4) Diffuse pulmonary alveolar hemorrhage: Status: Acute (5) Acute respiratory failure with hypoxia: Status: Acute Plan The patient presents with a in extreme soft tissue infection now with significant mottling and swelling complicated by hemoptysis appears to have some degree of diffuse alveolar hemorrhage primarily in the right upper lung area. Currently being treated for pneumonia and also soft tissue infection. The degree of hemoptysis is getting slightly better although still concerning. As far as the potential sepsis from the systemic infection need to consider potential DIC. His platelets have been on the low side will check his fibrinogen level. Vasculitis is less likely. Systemic infection is also possible. The patient did spend time in [place]. Infectious Disease was consulted and need to see him for further management. At this point there is no evidence of any thromboembolic disease. Recommendations: Broad-spectrum antibiotics to cover Staph aureus and Gram-negative organisms DIC screen, assessing for connective tissue diseases and vasculitides Additional evaluation for the lower extremity will be taking place with a CT scan any to monitor closely for any compartment syndrome If the patient continues with the hemoptysis over the weekend and if he has any worsening respiratory symptoms or oxygen requirements would consider bronchoscopy to better assess the lung condition Continue oxygen supplementation to maintain a pulse ox above 90% Has been using CPAP 11 at night should be using the oxygen with the CPAP The guarded condition Time Spent With Patient Time: Total time managing care of this patient today ____ minutes. Progress Note: Quality Stroke Does the patient have a stroke diagnosis?: No
--- NOTE | 2023-03-08 10:26 | HO.PM.IMPN ---
Subjective Subjective Date of Service: 03/08/23 Interval History: Seen and evaluated this morning mild improvement in area of erythema but reporting more pain in RLE still coughing bloody tinged sputum Kidney function improved No more syncope Review of Systems Review of Systems: Yes all other systems are reviewed and are negative Physical Exam Vital Signs: Vital Signs: Last Vital Signs Temp 98.7 F 03/08/23 04:00 Pulse 90 03/08/23 04:00 Resp 20 03/08/23 04:00 BP 165/70 H 03/08/23 04:00 Pulse Ox 93 03/08/23 04:00 O2 Del Method Nasal Cannula 03/08/23 04:00 O2 Flow Rate 5 03/08/23 04:00 BMI result Body Mass Index 37.3 Const: Other: Constitutional : Awake, interactive, not in distress Neck : Normal inspection, Supple Cardiovascular : RRR, no JVP, +1 lower extremity edema Respiratory : good bilateral air entry, basal fine crackles, no significant wheezes or rhonchi Gastrointestinal: soft, lax, Normal bowel sounds, Non tender Skin : Warm, Dry, RLE less erythema near the need but still with tenderness and warmth up below knee with edema Neurological : Alert & oriented x3, No focal deficit Objective Data Active Medications Acetaminophen (Acetaminophen 325 Mg Tablet) 650 mg PO Q6H PRN PRN Reason: Pain, Mild (Pain Scale 1-3) Last Admin: 03/08/23 08:31 Dose: 650 mg Documented By: MARY Amlodipine Besylate (Amlodipine Besylate 5 Mg Tablet) 5 mg PO DAILY [facility]; Protocol Last Admin: 03/08/23 08:32 Dose: 5 mg Documented By: MARY Aspirin (Aspirin Enteric Coated 81 Mg Tablet.Dr) 81 mg PO DAILY [facility] Last Admin: 03/06/23 08:02 Dose: 81 mg Documented By: ESTRELLA Atorvastatin Calcium (Atorvastatin Calcium 80 Mg Tablet) 80 mg PO BEDTIME [facility] Last Admin: 03/07/23 20:00 Dose: 80 mg Documented By: NATE Bupropion HCl (Bupropion Hcl Xl 150 Mg Tab.Er.24h) 150 mg PO DAILY [facility] Last Admin: 03/08/23 08:32 Dose: 150 mg Documented By: MARY Bupropion HCl (Bupropion Hcl Xl 300 Mg Tab.Er.24h) 300 mg PO DAILY [facility] Last Admin: 03/08/23 08:32 Dose: 300 mg Documented By: MARY Calcium Carbonate (Calcium Carbonate 750 Mg Tab.Chew) 750 mg PO Q6H PRN PRN Reason: Heartburn Last Admin: 03/05/23 16:00 Dose: 750 mg Documented By: DEVIN Carvedilol (Carvedilol 12.5 Mg Tablet) 50 mg PO BID [facility]; Protocol Last Admin: 03/08/23 08:32 Dose: 50 mg Documented By: MARY Dextrose (Dextrose 50 % 25 Gm/50 Ml Syringe) 25 gm IVPUSH Q15M PRN; Protocol PRN Reason: per Hypoglycemia Standing Ord. Doxazosin Mesylate (Doxazosin Mesylate 2 Mg Tablet) 4 mg PO DAILY [facility]; Protocol Last Admin: 03/08/23 08:32 Dose: 4 mg Documented By: MARY Empagliflozin (Empagliflozin 10 Mg Tablet) 10 mg PO DAILY [facility] Last Admin: 03/08/23 08:32 Dose: 10 mg Documented By: MARY Fenofibrate (Fenofibrate 160 Mg Tablet) 160 mg PO DAILY [facility] Last Admin: 03/08/23 08:32 Dose: 160 mg Documented By: MARY Fluticasone Propionate (Fluticasone Propionate Nasal 16 Gm [place]) 1 spray NOSTRIL-B BID [facility] Last Admin: 03/08/23 08:36 Dose: 1 spray Documented By: MARY Gabapentin (Gabapentin 300 Mg Capsule) 300 mg PO TID [facility] Last Admin: 03/08/23 08:32 Dose: 300 mg Documented By: MARY Glucose (Glucose Gel 15 Gm Gel..Gram.) 15 gm PO Q15M PRN; Protocol PRN Reason: per Hypoglycemia Standing Ord. Clindamycin Phosphate (Cleocin) 600 mg in 50 mls @ 100 mls/hr IV Q6H [facility] Last Infusion: 03/08/23 02:45 Dose: 0 mls/hr Documented By: NATE Ceftriaxone Sodium 2 gm/ (Sodium Chloride) 50 mls @ 100 mls/hr IV Q24H [facility] Insulin Glargine (Insulin Glargine,Hum.Rec.Anlog 100 Unit/Ml 10 Ml Vial) 40 unit SUBCUT BID [facility] Last Admin: 03/08/23 08:31 Dose: 40 unit Documented By: MARY Insulin Human Lispro (Insulin Lispro 100 Unit/Ml 3 Ml Vial) 0 unit SUBCUT QIDACHS [facility]; Protocol Last Admin: 03/08/23 08:23 Dose: Not Given Documented By: MARY Non-Admin Reason: No Insulin Coverage Isosorbide Mononitrate (Isosorbide Mononitrate 30 Mg Tab.Er.24h) 30 mg PO DAILY [facility]; Protocol Last Admin: 03/08/23 08:32 Dose: 30 mg Documented By: MARY Magnesium Hydroxide (Milk Of Magnesia 30 Ml Oral.Susp) 30 ml PO DAILY PRN PRN Reason: Constipation Melatonin (Melatonin 3 Mg Tablet) 6 mg PO BEDTIME PRN PRN Reason: Insomnia Morphine Sulfate (Morphine Sulfate 2 Mg/Ml Cartridge) 2 mg IVPUSH Q6H PRN; Protocol PRN Reason: Pain, Severe (Pain Scale 7-10) Last Admin: 03/07/23 23:39 Dose: 2 mg Documented By: NATE Ondansetron HCl (Ondansetron Hcl 4 Mg/2 Ml Vial) 4 mg IVPUSH Q8H PRN PRN Reason: Nausea and Vomiting Last Admin: 03/06/23 17:14 Dose: 4 mg Documented By: ESTRELLA Oxycodone HCl (Oxycodone Hcl Immed Release 5 Mg Tablet) 10 mg PO ONCE ONE Stop: 03/08/23 10:24 Oxycodone HCl (Oxycodone Hcl Immed Release 5 Mg Tablet) 5 mg PO Q4H PRN PRN Reason: Pain, Moderate(Pain Scale 4-6) Sodium Chloride (0.9 % Sodium Chloride Flush 3 Ml Syringe) 3 ml IVFLUSH [facility] Last Admin: 03/08/23 08:33 Dose: 3 ml Documented By: MARY Labs 03/08/23 06:43 03/08/23 06:44 Labs: Laboratory Results - last 24 hr 03/07/23 03/07/23 03/07/23 11:31 13:24 15:13 MCV MCH MCHC RDW Plt Count MPV Absolute Nucleated RBC Nucleated RBC % (auto) Anion Gap Estim Creat Clear Calc Estimated GFR POC Glucose 108 157 H Random Glucose Calcium Vancomycin Trough 12.3 Random Vancomycin 08/03/08/23 03/08/23 20:00 06:43 06:43 MCV 86.4 MCH 27.5 MCHC 31.9 RDW 14.8 Plt Count 177 D MPV 12.1 Absolute Nucleated RBC 0.000 Nucleated RBC % (auto) 0.0 Anion Gap Estim Creat Clear Calc Estimated GFR POC Glucose 162 H Random Glucose Calcium Vancomycin Trough Random Vancomycin 3.1 L 03/08/23 03/08/23 06:44 07:59 MCV MCH MCHC RDW Plt Count MPV Absolute Nucleated RBC Nucleated RBC % (auto) Anion Gap 13 Estim Creat Clear Calc 137.2 Estimated GFR > 60 POC Glucose 72 Random Glucose 79 Calcium 9.1 Vancomycin Trough Random Vancomycin Assessment and Plan (1) Right leg swelling: Status: Acute (2) Hemoptysis: Status: Acute (3) Acute respiratory failure with hypoxia: Status: Acute (4) Pneumonia: Status: Acute (5) Hypoglycemia associated with type 2 diabetes mellitus: Status: Acute Plan 57/m with diabetes here with right leg cellulitis with sepsis (criteria = WBC 15 + HR>90), Sepsis d/t RLE Cellulitis infection improving slowly but has area of worsen pain and erythema Continue IV Clindamycin negative cultures Leg elevation and wash Do CT w contrast to the leg ID consult pending Acute hypoxic respiratory failure 2/2 community acquired Pneumonia w hemoptysis CXR showed new infiltrates and groundglass opacities ; infection vs hemorrhage covered with Cindamycin , Ceftriaxone wean O2 down as tolerated CTA negative for PE Pulm input appreciated MINNIE , resolved Improved Cr 0.8 hold nephrotoxin follow BMP Syncope Likely d/t Orthostatic Hypotension and Hypoglycemia no reported events on Tele monitor Hypoglycemia in Diabetes type 2 stable now Decreased Lantus to 40 units bid for now hold metformin d/t renal failure SSI, diabetic diet HLD continue Statin HTN (hypertension) continue Coreg hold olmesartan d/t renal failure, imdur Sleep apnea--CPAP CAD ASA, Coreg, Statin, imdur Mood desorder/Depression Bupropion DVT prophylaxis: Lovenox Full code Need overnight hosptial stay for cellulitis, hypoxia 2/2 pneumonia and needs IV Abx to prevent deterioration Time Spent With Patient Time: Total time managing care of this patient today ____ minutes. Quality Stroke Does the patient have a stroke diagnosis?: No VTE Prior VTE?: No VTE Risk Level:: Medical - moderate - high VTE Device Contraindication: Treatment Not Indicated VTE Drug Contraindication: N/A - Med Ordered
[2023-03-08] MEDS: Furosemide 40 MG/4 ML VIAL IVPUSH (10:48)
[2023-03-08] MEDS: oxyCODONE HCl Immed Release 5 MG TABLET 10 MG PO (10:48)
[2023-03-08 11:20] LABS: Erythrocyte Sedimentation Rate 88 MM/HR (0-15)
[2023-03-08] MEDS: cefTRIAXone sodium 2 GM in 0.9 % Sodium Chloride 50 ML IV (11:32)
[2023-03-08 11:51] LABS: Glucose, Whole Blood 128 mg/dL (60-115)
[2023-03-08 12:00] VITALS: BP 130/64; PULSE 77; RESP 20; TEMP 36.3; O2SAT 97
[2023-03-08 13:46] LABS: INTERNATIONAL NORM RATIO 1.1 (0.9-1.1); Prothrombin Time 13.2 SEC (11.1-13.3)
[2023-03-08 13:48] LABS: D Dimer High Sensitivity 391 NG/ML
[2023-03-08 13:49] LABS: Partial Thromboplastin Time 28.2 SEC (26.0-36.4)
[2023-03-08 13:52] LABS: Fibrinogen > 700 MG/DL (259-690)
[2023-03-08] MEDS: Morphine Sulfate 2 MG/ML CARTRIDGE IVPUSH (14:18)
[2023-03-08] MEDS: iohexoL 350 MG/ML 100 ML INFUS..BTL IV (15:14)
[2023-03-08 15:24] VITALS: BP 146/70; PULSE 77; RESP 22; TEMP 36.3; O2SAT 96
[2023-03-08] MEDS: levoFLOXacin/D5W 750 MG/150 ML PIGGYBACK 100 MG IV (15:55)
--- NOTE | 2023-03-08 16:10 | MHC.CM.PN ---
Per MD rounds no discharge today. Infectious disease consult ordered. [facility] no services. Patients will transport home.
[2023-03-08 16:24] LABS: Glucose, Whole Blood 148 mg/dL (60-115)
[2023-03-08 19:11] VITALS: BP 174/79; PULSE 87; RESP 20; TEMP 36.6; O2SAT 97
[2023-03-08 20:17] LABS: Glucose, Whole Blood 157 mg/dL (60-115)
[2023-03-08] MEDS: Atorvastatin Calcium 80 MG TABLET PO (20:33)
[2023-03-08] MEDS: Insulin Lispro 100 UNIT/ML 3 ML VIAL SUBCUT (20:40)
[2023-03-08] MEDS: oxyCODONE HCl Immed Release 5 MG TABLET PO (22:06)
[2023-03-09] VITALS: BP 164/72; PULSE 85; RESP 20; TEMP 36.4; O2SAT 92
[2023-03-09 04:00] VITALS: BP 178/84; PULSE 86; RESP 20; TEMP 36.4; O2SAT 94
[2023-03-09] MEDS: Clindamycin Phosphate/D5W 600 MG/50 ML PIGGYBACK 100 MG IV ×4 (05:27→23:01)
[2023-03-09] MEDS: oxyCODONE HCl Immed Release 5 MG TABLET PO ×3 (05:31→22:01)
[2023-03-09 06:55] LABS: Creatinine Clr Calc Pharmacy 142.5; Estimated Glomerular Filt Rate > 60
[2023-03-09 07:09] LABS: Glucose, Whole Blood 62 mg/dL (60-115)
[2023-03-09 07:32] VITALS: BP 164/81; PULSE 85; RESP 20; TEMP 36.1; O2SAT 96
[2023-03-09 07:34] LABS: Glucose, Whole Blood 65 mg/dL (60-115)
[2023-03-09] MEDS: Empagliflozin 10 MG TABLET PO (08:19)
[2023-03-09] MEDS: amLODIPine Besylate 5 MG TABLET PO (08:19)
[2023-03-09] MEDS: Isosorbide Mononitrate 30 MG TAB.ER.24H PO (08:19)
[2023-03-09] MEDS: Gabapentin 300 MG CAPSULE PO ×3 (08:19→22:02)
[2023-03-09] MEDS: buPROPion HCl XL 300 MG TAB.ER.24H PO (08:19)
[2023-03-09] MEDS: Doxazosin Mesylate 2 MG TABLET 4 MG PO (08:19)
[2023-03-09] MEDS: carvediloL 12.5 MG TABLET 50 MG PO ×2 (08:19→22:01)
[2023-03-09] MEDS: Fenofibrate 160 MG TABLET PO (08:19)
[2023-03-09] MEDS: buPROPion HCl XL 150 MG TAB.ER.24H PO (08:20)
[2023-03-09] MEDS: 0.9 % Sodium Chloride Flush 3 ML SYRINGE IVFLUSH ×3 (08:20→23:02)
[2023-03-09] MEDS: Acetaminophen 325 MG TABLET 650 MG PO ×2 (08:29→17:21)
[2023-03-09] MEDS: Insulin Glargine,Hum.rec.anlog 100 UNIT/ML 10 ML VIAL 40 UNIT SUBCUT ×2 (08:33→22:00)
[2023-03-09] MEDS: Fluticasone Propionate Nasal 16 GM SPRAY 1 SPRAY NOSTRIL-B ×2 (10:25→22:06)
[2023-03-09 11:36] LABS: Glucose, Whole Blood 102 mg/dL (60-115)
[2023-03-09 12:00] VITALS: BP 137/67; PULSE 77; RESP 20; TEMP 36.6; O2SAT 94
--- NOTE | 2023-03-09 12:13 | P.PNIM_ITS ---
Subjective Subjective Date of Service: 03/09/23 Interval History: Seen and evaluated this morning daily mild improvement in area of erythema still coughing bloody tinged sputum, less amount No more syncope Review of Systems Review of Systems: Yes all other systems are reviewed and are negative Physical Exam Vital Signs: Vital Signs: Last Vital Signs Temp 97.0 F 03/09/23 07:32 Pulse 85 03/09/23 07:32 Resp 20 03/09/23 07:32 BP 164/81 H 03/09/23 07:32 Pulse Ox 96 03/09/23 07:32 O2 Del Method Nasal Cannula 03/09/23 07:32 O2 Flow Rate 5 03/09/23 07:32 BMI result Body Mass Index 37.3 Const: Other: Constitutional : Awake, interactive, not in distress Neck : Normal inspection, Supple Cardiovascular : RRR, no JVP, +1 lower extremity edema Respiratory : good bilateral air entry, basal fine crackles, no significant w heezes or rhonchi Gastrointestinal: soft, lax, Normal bowel sounds, Non tender Skin : Warm, Dry, RLE less erythema near the knee with less tenderness and warmth below knee with l;ess edema Neurological : Alert & oriented x3, No focal deficit Objective Data Active Medications Acetaminophen (Acetaminophen 325 Mg Tablet) 650 mg PO Q6H PRN PRN Reason: Pain, Mild (Pain Scale 1-3) Last Admin: 03/09/23 08:29 Dose: 650 mg Documented By: JASMYNE Amlodipine Besylate (Amlodipine Besylate 5 Mg Tablet) 5 mg PO DAILY [facility]; Protocol Last Admin: 03/09/23 08:19 Dose: 5 mg Documented By: JASMYNE Aspirin (Aspirin Enteric Coated 81 Mg Tablet.Dr) 81 mg PO DAILY [facility] Last Admin: 03/06/23 08:02 Dose: 81 mg Documented By: ESTRELLA Atorvastatin Calcium (Atorvastatin Calcium 80 Mg Tablet) 80 mg PO BEDTIME [facility] Last Admin: 03/08/23 20:33 Dose: 80 mg Documented By: JACKSON Bupropion HCl (Bupropion Hcl Xl 150 Mg Tab.Er.24h) 150 mg PO DAILY [facility] Last Admin: 03/09/23 08:20 Dose: 150 mg Documented By: JASMYNE Bupropion HCl (Bupropion Hcl Xl 300 Mg Tab.Er.24h) 300 mg PO DAILY [facility] Last Admin: 03/09/23 08:19 Dose: 300 mg Documented By: JASMYNE Calcium Carbonate (Calcium Carbonate 750 Mg Tab.Chew) 750 mg PO Q6H PRN PRN Reason: Heartburn Last Admin: 03/05/23 16:00 Dose: 750 mg Documented By: DEVIN Carvedilol (Carvedilol 12.5 Mg Tablet) 50 mg PO BID [facility]; Protocol Last Admin: 03/09/23 08:19 Dose: 50 mg Documented By: JASMYNE Dextrose (Dextrose 50 % 25 Gm/50 Ml Syringe) 25 gm IVPUSH Q15M PRN; Protocol PRN Reason: per Hypoglycemia Standing Ord. Doxazosin Mesylate (Doxazosin Mesylate 2 Mg Tablet) 4 mg PO DAILY [facility]; Protocol Last Admin: 03/09/23 08:19 Dose: 4 mg Documented By: JASMYNE Empagliflozin (Empagliflozin 10 Mg Tablet) 10 mg PO DAILY [facility] Last Admin: 03/09/23 08:19 Dose: 10 mg Documented By: JASMYNE Fenofibrate (Fenofibrate 160 Mg Tablet) 160 mg PO DAILY [facility] Last Admin: 03/09/23 08:19 Dose: 160 mg Documented By: JASMYNE Fluticasone Propionate (Fluticasone Propionate Nasal 16 Gm [place]) 1 spray NOSTRIL-B BID [facility] Last Admin: 03/09/23 10:25 Dose: 1 spray Documented By: JASMYNE Gabapentin (Gabapentin 300 Mg Capsule) 300 mg PO TID [facility] Last Admin: 03/09/23 08:19 Dose: 300 mg Documented By: JASMYNE Glucose (Glucose Gel 15 Gm Gel..Gram.) 15 gm PO Q15M PRN; Protocol PRN Reason: per Hypoglycemia Standing Ord. Levofloxacin (Levaquin) 750 mg in 150 mls @ 100 mls/hr IV Q24H [facility] Last Infusion: 03/08/23 17:47 Dose: 0 mls/hr Documented By: FOSNICHOLE Clindamycin Phosphate (Cleocin) 600 mg in 50 mls @ 100 mls/hr IV Q6H [facility] Last Admin: 03/09/23 11:40 Dose: 100 mls/hr Documented By: JASMYNE Insulin Glargine (Insulin Glargine,Hum.Rec.Anlog 100 Unit/Ml 10 Ml Vial) 40 unit SUBCUT BID [facility] Last Admin: 03/09/23 08:33 Dose: 40 unit Documented By: JASMYNE Insulin Human Lispro (Insulin Lispro 100 Unit/Ml 3 Ml Vial) 0 unit SUBCUT QIDACHS [facility]; Protocol Last Admin: 03/09/23 11:45 Dose: Not Given Documented By: JASMYNE Non-Admin Reason: No Insulin Coverage Isosorbide Mononitrate (Isosorbide Mononitrate 30 Mg Tab.Er.24h) 30 mg PO DAILY [facility]; Protocol Last Admin: 03/09/23 08:19 Dose: 30 mg Documented By: JASMYNE Magnesium Hydroxide (Milk Of Magnesia 30 Ml Oral.Susp) 30 ml PO DAILY PRN PRN Reason: Constipation Melatonin (Melatonin 3 Mg Tablet) 6 mg PO BEDTIME PRN PRN Reason: Insomnia Morphine Sulfate (Morphine Sulfate 2 Mg/Ml Cartridge) 2 mg IVPUSH Q6H PRN; Protocol PRN Reason: Pain, Severe (Pain Scale 7-10) Last Admin: 03/08/23 14:18 Dose: 2 mg Documented By: MARY Ondansetron HCl (Ondansetron Hcl 4 Mg/2 Ml Vial) 4 mg IVPUSH Q8H PRN PRN Reason: Nausea and Vomiting Last Admin: 03/06/23 17:14 Dose: 4 mg Documented By: ESTRELLA Oxycodone HCl (Oxycodone Hcl Immed Release 5 Mg Tablet) 5 mg PO Q4H PRN PRN Reason: Pain, Moderate(Pain Scale 4-6) Last Admin: 03/09/23 11:40 Dose: 5 mg Documented By: JASMYNE Sodium Chloride (0.9 % Sodium Chloride Flush 3 Ml Syringe) 3 ml IVFLUSH QSHIFT [facility] Last Admin: 03/09/23 08:20 Dose: 3 ml Documented By: JASMYNE Labs 03/08/23 06:43 03/09/23 06:18 Labs: Laboratory Results - last 24 hr 03/08/23 03/08/23 03/08/23 13:32 13:32 16:21 PT 13.2 INR 1.1 APTT 28.2 Fibrinogen > 700 H D-Dimer High Sensitivty 391 Estim Creat Clear Calc Estimated GFR POC Glucose 148 H 0803/09/23 03/09/23 19:57 06:18 07:03 PT INR APTT Fibrinogen D-Dimer High Sensitivty Estim Creat Clear Calc 142.5 Estimated GFR > 60 POC Glucose 157 H 62 03/09/23 03/09/23 07:24 11:32 PT INR APTT Fibrinogen D-Dimer High Sensitivty Estim Creat Clear Calc Estimated GFR POC Glucose 65 102 Assessment and Plan (1) Diffuse pulmonary alveolar hemorrhage: Status: Acute (2) SARAH (obstructive sleep apnea): Status: Acute (3) Hemoptysis: Status: Acute (4) Acute respiratory failure with hypoxia: Status: Acute (5) Pneumonia: Status: Acute (6) MINNIE (acute kidney injury): Status: Acute (7) Cellulitis of right leg: Status: Acute Plan 57/m with diabetes here with right leg cellulitis with sepsis (criteria = WBC 15 + HR>90), Sepsis d/t RLE Cellulitis infection area improving slowly Continue IV Clindamycin and LEvaquin negative cultures Leg elevation and wash CT w contrast negative for abscess ID consult appreciated Acute hypoxic respiratory failure 2/2 community acquired Pneumonia w hemoptysis CXR showed new infiltrates and groundglass opacities ; infection vs hemorrhage covered with Cindamycin , Ceftriaxone wean O2 down as tolerated CTA negative for PE Negative DIC screen Pending Vasculitides work up Pulm input appreciated , if continues to require more O2 consider Bronch next week CPAP w O2 at night MINNIE , resolved Improved Cr 0.8 hold nephrotoxin follow BMP Syncope Likely d/t Orthostatic Hypotension and Hypoglycemia no reported events while inpatient Hypoglycemia in Diabetes type 2 stable now Decreased Lantus to 40 units bid for now hold metformin d/t renal failure SSI, diabetic diet HLD continue Statin HTN (hypertension) continue Coreg hold olmesartan d/t renal failure, imdur Sleep apnea--CPAP CAD ASA, Coreg, Statin, imdur Mood desorder/Depression Bupropion DVT prophylaxis: Lovenox Full code Need overnight hosptial stay for cellulitis, hypoxia 2/2 pneumonia and needs IV Abx to prevent deterioration Time Spent With Patient Time: Total time managing care of this patient today ____ minutes. Quality Stroke Does the patient have a stroke diagnosis?: No VTE Prior VTE?: No VTE Risk Level:: Medical - moderate - high VTE Device Contraindication: Treatment Not Indicated VTE Drug Contraindication: N/A - Med Ordered
[2023-03-09] MEDS: Furosemide 40 MG/4 ML VIAL IVPUSH (13:59)
[2023-03-09 16:18] VITALS: BP 158/89; PULSE 89; RESP 18; TEMP 37.1; O2SAT 97
[2023-03-09 16:22] LABS: Glucose, Whole Blood 155 mg/dL (60-115)
[2023-03-09] MEDS: Insulin Lispro 100 UNIT/ML 3 ML VIAL SUBCUT ×2 (17:17→22:00)
[2023-03-09] MEDS: levoFLOXacin/D5W 750 MG/150 ML PIGGYBACK 100 MG IV (17:52)
[2023-03-09 20:00] VITALS: BP 170/72; PULSE 92; RESP 18; TEMP 37; O2SAT 95
[2023-03-09 20:37] LABS: Glucose, Whole Blood 187 mg/dL (60-115)
[2023-03-09] MEDS: Atorvastatin Calcium 80 MG TABLET PO (22:02)
--- NOTE | 2023-03-09 23:06 | P.CNID_ITS ---
History of Present Illness Data of Consult Service Date: 03/09/23 Requesting physician: Martha Angulo Primary Care Provider: Alvin Gill MD HPI Reason for consult: right redness leg and hemoptysis He presents with redness lower extremity right and hemoptysis worse over last week. He has no fever or chills now. Review of Systems 2 Review of Systems: Yes all other systems are reviewed and are negative PMFSH Past Medical History Medical History Diabetes Heart disease High cholesterol High triglycerides HTN (hypertension) SARAH (obstructive sleep apnea) Sleep apnea Family History Family history: reviewed and not pertinent Surgical History Surgical History H/O heart artery stent S/P reconstruction of ligament of knee joint Social History Social History Household Members: Spouse Housing: House Do you presently have visiting nurse or other home services: No Patient Tobacco Use Status: Never used Tobacco Smoked in Last 30 Days: No Use of substances other than those prescribed or required for medical reasons: No Currently Displaying Signs/Symptoms of Drug Intoxication Withdrawal: No Have you been hit, kicked, punched, or otherwise hurt by someone within the past year? If so, by whom?: No Do you feel safe in your current relationship?: Yes Is there a partner from a previous relationship who is making you feel unsafe no w?: No Are you made to feel afraid or neglected: No Advance Directives: No Advance Directives Information Provided: Yes Do you have thoughts of harming others: None Do you have a plan to hurt others: No Plan Recently lost weight without trying: No Eating poorly because of decreased appetite: No Poor oral hygiene: No service: No Meds Allergies Allergy/AdvReac Type Severity Reaction Status Date / Time amoxicillin [Augmentin] Allergy Unknown Verified 03/10/18 00:00 clavulanic acid [Augmentin] Allergy Unknown Verified 03/10/18 00:00 Active Medications: Current Medications Acetaminophen (Acetaminophen 325 Mg Tablet) 650 mg PO Q6H PRN PRN Reason: Pain, Mild (Pain Scale 1-3) Last Admin: 03/09/23 17:21 Dose: 650 mg Amlodipine Besylate (Amlodipine Besylate 5 Mg Tablet) 5 mg PO DAILY [facility]; Protocol Last Admin: 03/09/23 08:19 Dose: 5 mg Aspirin (Aspirin Enteric Coated 81 Mg Tablet.Dr) 81 mg PO DAILY [facility] Last Admin: 03/06/23 08:02 Dose: 81 mg Atorvastatin Calcium (Atorvastatin Calcium 80 Mg Tablet) 80 mg PO BEDTIME [facility] Last Admin: 03/09/23 22:02 Dose: 80 mg Bupropion HCl (Bupropion Hcl Xl 150 Mg Tab.Er.24h) 150 mg PO DAILY [facility] Last Admin: 03/09/23 08:20 Dose: 150 mg Bupropion HCl (Bupropion Hcl Xl 300 Mg Tab.Er.24h) 300 mg PO DAILY [facility] Last Admin: 03/09/23 08:19 Dose: 300 mg Calcium Carbonate (Calcium Carbonate 750 Mg Tab.Chew) 750 mg PO Q6H PRN PRN Reason: Heartburn Last Admin: 03/05/23 16:00 Dose: 750 mg Carvedilol (Carvedilol 12.5 Mg Tablet) 50 mg PO BID [facility]; Protocol Last Admin: 03/09/23 22:01 Dose: 50 mg Dextrose (Dextrose 50 % 25 Gm/50 Ml Syringe) 25 gm IVPUSH Q15M PRN; Protocol PRN Reason: per Hypoglycemia Standing Ord. Doxazosin Mesylate (Doxazosin Mesylate 2 Mg Tablet) 4 mg PO DAILY [facility]; Protocol Last Admin: 03/09/23 08:19 Dose: 4 mg Empagliflozin (Empagliflozin 10 Mg Tablet) 10 mg PO DAILY [facility] Last Admin: 03/09/23 08:19 Dose: 10 mg Fenofibrate (Fenofibrate 160 Mg Tablet) 160 mg PO DAILY [facility] Last Admin: 03/09/23 08:19 Dose: 160 mg Fluticasone Propionate (Fluticasone Propionate Nasal 16 Gm [place]) 1 spray NOSTRIL-B BID [facility] Last Admin: 03/09/23 22:06 Dose: 1 spray Gabapentin (Gabapentin 300 Mg Capsule) 300 mg PO TID [facility] Last Admin: 03/09/23 22:02 Dose: 300 mg Glucose (Glucose Gel 15 Gm Gel..Gram.) 15 gm PO Q15M PRN; Protocol PRN Reason: per Hypoglycemia Standing Ord. Levofloxacin (Levaquin) 750 mg in 150 mls @ 100 mls/hr IV Q24H [facility] Last Infusion: 03/09/23 22:07 Dose: Infused Clindamycin Phosphate (Cleocin) 600 mg in 50 mls @ 100 mls/hr IV Q6H [facility] Last Admin: 03/09/23 23:01 Dose: 100 mls/hr Insulin Glargine (Insulin Glargine,Hum.Rec.Anlog 100 Unit/Ml 10 Ml Vial) 40 unit SUBCUT BID [facility] Last Admin: 03/09/23 22:00 Dose: 40 unit Insulin Human Lispro (Insulin Lispro 100 Unit/Ml 3 Ml Vial) 0 unit SUBCUT Q IDACHS [facility]; Protocol Last Admin: 03/09/23 22:00 Dose: 2 unit Isosorbide Mononitrate (Isosorbide Mononitrate 30 Mg Tab.Er.24h) 30 mg PO DAILY [facility]; Protocol Last Admin: 03/09/23 08:19 Dose: 30 mg Magnesium Hydroxide (Milk Of Magnesia 30 Ml Oral.Susp) 30 ml PO DAILY PRN PRN Reason: Constipation Melatonin (Melatonin 3 Mg Tablet) 6 mg PO BEDTIME PRN PRN Reason: Insomnia Morphine Sulfate (Morphine Sulfate 2 Mg/Ml Cartridge) 2 mg IVPUSH Q6H PRN; Protocol PRN Reason: Pain, Severe (Pain Scale 7-10) Last Admin: 03/08/23 14:18 Dose: 2 mg Ondansetron HCl (Ondansetron Hcl 4 Mg/2 Ml Vial) 4 mg IVPUSH Q8H PRN PRN Reason: Nausea and Vomiting Last Admin: 03/06/23 17:14 Dose: 4 mg Oxycodone HCl (Oxycodone Hcl Immed Release 5 Mg Tablet) 5 mg PO Q4H PRN PRN Reason: Pain, Moderate(Pain Scale 4-6) Last Admin: 03/09/23 22:01 Dose: 5 mg Sodium Chloride (0.9 % Sodium Chloride Flush 3 Ml Syringe) 3 [place] Last Admin: 03/09/23 23:02 Dose: 3 ml Home Medications Medication Instructions Recorded Confirmed Last Taken Type aspirin 81 mg tablet,delayed 81 mg PO DAILY 03/04/23 03/04/23 Unknown History release atorvastatin 80 mg tablet 80 mg PO BEDTIME 03/04/23 03/04/23 Unknown History bupropion HCl 150 mg 24 hr tablet, 150 mg PO DAILY 03/04/23 03/04/23 Unknown History extended release bupropion HCl 300 mg 24 hr tablet, 300 mg PO DAILY 03/04/23 03/04/23 Unknown History extended release carvedilol 25 mg tablet 50 mg PO BID 03/04/23 03/04/23 Unknown History dapagliflozin propanediol 10 mg 10 mg PO DAILY 03/04/23 03/04/23 Unknown History tablet (Farxiga) doxazosin 4 mg tablet 4 mg PO DAILY 03/04/23 03/04/23 Unknown History dulaglutide 3 mg/0.5 mL 3 mg subcut [place] 03/04/23 03/04/23 Unknown History subcutaneous pen injector (Trulicity) fenofibrate 160 mg tablet 160 mg PO DAILY 03/04/23 03/04/23 Unknown History fluticasone propionate 50 1 spray intranasal BID 03/04/23 03/04/23 Unknown History mcg/actuation nasal spray,suspension gabapentin 300 mg capsule 300 mg PO TID 03/04/23 03/04/23 Unknown History insulin degludec 100 unit/mL (3 75 unit subcut BID 03/04/23 03/04/23 Unknown History mL) subcutaneous pen (Tresiba FlexTouch U-100 insulin) isosorbide mononitrate 30 mg 30 mg PO DAILY 03/04/23 03/04/23 Unknown History tablet,extended release 24 hr metformin 500 mg tablet,extended 1,000 mg PO BID 03/04/23 03/04/23 Unknown History release 24 hr olmesartan 20 mg tablet 20 mg PO DAILY 03/04/23 03/04/23 Unknown History olmesartan 40 1 tab PO DAILY 03/04/23 03/04/23 Unknown History mg-hydrochlorothiazide 25 mg tablet Physical Exam Vital Signs: Vital Signs: Last Vital Signs Temp 98.6 F 03/09/23 20:00 Pulse 92 03/09/23 20:00 Resp 18 03/09/23 20:00 BP 170/72 H 03/09/23 20:00 Pulse Ox 95 03/09/23 20:00 O2 Del Method Nasal Cannula 03/09/23 20:00 O2 Flow Rate 5 03/09/23 16:18 BMI result Body Mass Index 37.3 Const: General: cooperative HEENT: Head: Yes normal to inspection Face and sinus: Yes normal facial exam Mouth: Normal oral and palatal mucosa present Teeth and gingiva: dentition normal Eyes: General: appearance normal, both eyes and all related structures Pupils: Equal, round and reactive pupils present Resp: Effort & Inspection: normal respiratory effort Cardio: Rate: regular rate Rhythm: regular rhythm GI: Palpation (GI): Soft to palpation and nontender : General: Yes no CVA tenderness Back/Spine/Pelvis: Back: no CVA tenderness Skin: Other: reddened rLEleg General skin exam: no rashes or lesions noted Neuro: General: moves all extremities Cranial nerves: Yes Equal, round and reactive pupils present Extrem: General: Yes normal to inspection Psych: Appearance: grossly normal Results Labs 03/08/23 06:43 03/09/23 06:18 Labs: BMP 03/09/23 06:18 Creatinine 0.78 Microbiology Microbiology Results: Microbiology 03/04/23 13:50 Blood - Venous Blood Culture - Final No growth after 5 days. 03/04/23 13:50 Blood - Venous Blood Culture - Final No growth after 5 days. Assessment and Plan (1) Diffuse pulmonary alveolar hemorrhage: Status: Acute He has cellulitis and hemoptysis. CVD/angiitis may be cause. Less likely atypical infection like mycoplasma. (2) Hemoptysis: Status: Acute (3) Right leg swelling: Status: Acute Plan Continue Clindamycin and levaquin for now. Collagen vascular workup. Time Spent With Patient Time: Total time managing care of this patient today ____ minutes.
[2023-03-10] VITALS (8 sets, daily range): BP systolic 141–179; BP diastolic 66–85; PULSE 77–98; RESP 18–20; TEMP 36.2–37.1; O2SAT 92–99
[2023-03-10] MEDS: Clindamycin Phosphate/D5W 600 MG/50 ML PIGGYBACK 100 MG IV ×4 (06:11→22:22)
[2023-03-10] MEDS: Acetaminophen 325 MG TABLET 650 MG PO ×3 (06:19→22:24)
[2023-03-10 06:24] LABS: Anion Gap 12 (12-20); Blood Urea Nitrogen 19 mg/dL (9-16); C Reactive Protein 9.89 mg/dL (< or = 0.50); Calcium 9.3 mg/dL (8.4-10.2); Carbon Dioxide 29 mmol/L (22-29); Chloride 108 mmol/L (96-108); Creatinine Clr Calc Pharmacy 135.5; Estimated Glomerular Filt Rate > 60; Glucose Random 75 mg/dL (60-115); Sodium 145 mmol/L (135-145)
[2023-03-10 07:02] LABS: Hematocrit 38.5 % (42.0-52.0); Hemoglobin 12.3 g/dl (14.0-18.0); Mean Corpuscular HGB Conc 31.9 g/dl (31.0-36.0); Mean Corpuscular Hemoglobin 27.8 pg (27.0-33.0); Mean Corpuscular Volume 86.9 fL (80.0-98.0); Mean Platelet Volume 12.3 fL (9.4-12.4); Platelet Count 245 X10*3/uL (160-400); Red Blood Count 4.43 X10*6/uL (4.60-5.80); Red Cell Distribution Width 14.7 % (11.0-16.0); White Blood Count 10.3 X10*3/uL (4.8-10.8)
[2023-03-10 07:21] LABS: Glucose, Whole Blood 69 mg/dL (60-115)
[2023-03-10] MEDS: Isosorbide Mononitrate 30 MG TAB.ER.24H PO (09:35)
[2023-03-10] MEDS: Doxazosin Mesylate 2 MG TABLET 4 MG PO (09:35)
[2023-03-10] MEDS: buPROPion HCl XL 300 MG TAB.ER.24H PO (09:35)
[2023-03-10] MEDS: Losartan Potassium 25 MG TABLET PO (09:35)
[2023-03-10] MEDS: buPROPion HCl XL 150 MG TAB.ER.24H PO (09:35)
[2023-03-10] MEDS: Gabapentin 300 MG CAPSULE PO ×3 (09:35→21:29)
[2023-03-10] MEDS: Fenofibrate 160 MG TABLET PO (09:35)
[2023-03-10] MEDS: amLODIPine Besylate 5 MG TABLET PO (09:36)
[2023-03-10] MEDS: carvediloL 12.5 MG TABLET 50 MG PO ×2 (09:36→21:29)
[2023-03-10] MEDS: 0.9 % Sodium Chloride Flush 3 ML SYRINGE IVFLUSH ×3 (09:36→21:31)
[2023-03-10] MEDS: Insulin Glargine,Hum.rec.anlog 100 UNIT/ML 10 ML VIAL 40 UNIT SUBCUT ×2 (09:36→21:29)
[2023-03-10] MEDS: Fluticasone Propionate Nasal 16 GM SPRAY 1 SPRAY NOSTRIL-B ×2 (09:41→21:29)
[2023-03-10] MEDS: oxyCODONE HCl Immed Release 5 MG TABLET PO (09:41)
[2023-03-10] MEDS: Empagliflozin 10 MG TABLET PO (09:49)
--- NOTE | 2023-03-10 11:25 | P.PNIM_ITS ---
Subjective Subjective Date of Service: 03/10/23 Interval History: Seen and evaluated this morning Slow improvement in area of erythema Still requiring O2 supplement No reported bloody tinged sputum overnight No more syncope Review of Systems Review of Systems: Yes all other systems are reviewed and are negative Physical Exam Vital Signs: Vital Signs: Last Vital Signs Temp 97.1 F 03/10/23 08:00 Pulse 88 03/10/23 08:00 Resp 20 03/10/23 08:00 BP 166/72 H 03/10/23 08:00 Pulse Ox 96 03/10/23 08:00 O2 Del Method Nasal Cannula 03/10/23 08:00 O2 Flow Rate 4 03/10/23 08:00 BMI result Body Mass Index 37.3 Const: Other: Constitutional : Awake, interactive, not in distress Neck : Normal inspection, Supple Cardiovascular : RRR, no JVP, no significant lower extremity edema Respiratory : good bilateral air entry, basal fine crackles, no significant wheezes or rhonchi Gastrointestinal: soft, lax, Normal bowel sounds, Non tender Skin : Warm, Dry, RLE less erythema near the knee with less tenderness and warmth below knee with less edema Neurological : Alert & oriented x3, No focal deficit Objective Data Active Medications Acetaminophen (Acetaminophen 325 Mg Tablet) 650 mg PO Q6H PRN PRN Reason: Pain, Mild (Pain Scale 1-3) Last Admin: 03/10/23 06:19 Dose: 650 mg Documented By: DARON Amlodipine Besylate (Amlodipine Besylate 5 Mg Tablet) 5 mg PO DAILY [facility]; Protocol Last Admin: 03/10/23 09:36 Dose: 5 mg Documented By: JASMYNE Aspirin (Aspirin Enteric Coated 81 Mg Tablet.) 81 mg PO DAILY [facility] Last Admin: 03/06/23 08:02 Dose: 81 mg Documented By: ESTRELLA Atorvastatin Calcium (Atorvastatin Calcium 80 Mg Tablet) 80 mg PO BEDTIME [facility] Last Admin: 03/09/23 22:02 Dose: 80 mg Documented By: DARON Bupropion HCl (Bupropion Hcl Xl 150 Mg Tab.Er.24h) 150 mg PO DAILY [facility] Last Admin: 03/10/23 09:35 Dose: 150 mg Documented By: JASMYNE Bupropion HCl (Bupropion Hcl Xl 300 Mg Tab.Er.24h) 300 mg PO DAILY [facility] Last Admin: 03/10/23 09:35 Dose: 300 mg Documented By: JASMYNE Calcium Carbonate (Calcium Carbonate 750 Mg Tab.Chew) 750 mg PO Q6H PRN PRN Reason: Heartburn Last Admin: 03/05/23 16:00 Dose: 750 mg Documented By: DEVIN Carvedilol (Carvedilol 12.5 Mg Tablet) 50 mg PO BID [facility]; Protocol Last Admin: 03/10/23 09:36 Dose: 50 mg Documented By: JASMYNE Dextrose (Dextrose 50 % 25 Gm/50 Ml Syringe) 25 gm IVPUSH Q15M PRN; Protocol PRN Reason: per Hypoglycemia Standing Ord. Doxazosin Mesylate (Doxazosin Mesylate 2 Mg Tablet) 4 mg PO DAILY [facility]; Protocol Last Admin: 03/10/23 09:35 Dose: 4 mg Documented By: JASMYNE Empagliflozin (Empagliflozin 10 Mg Tablet) 10 mg PO DAILY [facility] Last Admin: 03/10/23 09:49 Dose: 10 mg Documented By: JASMYNE Fenofibrate (Fenofibrate 160 Mg Tablet) 160 mg PO DAILY [facility] Last Admin: 03/10/23 09:35 Dose: 160 mg Documented By: JASMYNE Fluticasone Propionate (Fluticasone Propionate Nasal 16 Gm [place]) 1 spray NOSTRIL-B BID [facility] Last Admin: 03/10/23 09:41 Dose: 1 spray Documented By: JASMYNE Gabapentin (Gabapentin 300 Mg Capsule) 300 mg PO TID [facility] Last Admin: 03/10/23 09:35 Dose: 300 mg Documented By: JASMYNE Glucose (Glucose Gel 15 Gm Gel..Gram.) 15 gm PO Q15M PRN; Protocol PRN Reason: per Hypoglycemia Standing Ord. Levofloxacin (Levaquin) 750 mg in 150 mls @ 100 mls/hr IV Q24H [facility] Last Infusion: 03/09/23 22:07 Dose: 100 mls/hr Documented By: DARON Clindamycin Phosphate (Cleocin) 600 mg in 50 mls @ 100 mls/hr IV Q6H [facility] Last Infusion: 03/10/23 11:01 Dose: 0 mls/hr Documented By: JASMYNE Insulin Glargine (Insulin Glargine,Hum.Rec.Anlog 100 Unit/Ml 10 Ml Vial) 40 unit SUBCUT BID [facility] Last Admin: 03/10/23 09:36 Dose: 40 unit Documented By: JASMYNE Insulin Human Lispro (Insulin Lispro 100 Unit/Ml 3 Ml Vial) 0 unit SUBCUT QIDACHS [facility]; Protocol Last Admin: 03/10/23 07:37 Dose: Not Given Documented By: JASMYNE Non-Admin Reason: No Insulin Coverage Comments: per sliding scale policy. Isosorbide Mononitrate (Isosorbide Mononitrate 30 Mg Tab.Er.24h) 30 mg PO DAILY [facility]; Protocol Last Admin: 03/10/23 09:35 Dose: 30 mg Documented By: JASMYNE Losartan Potassium (Losartan Potassium 25 Mg Tablet) 25 mg PO DAILY [facility]; Protocol Last Admin: 03/10/23 09:35 Dose: 25 mg Documented By: JASMYNE Magnesium Hydroxide (Milk Of Magnesia 30 Ml Oral.Susp) 30 ml PO DAILY PRN PRN Reason: Constipation Melatonin (Melatonin 3 Mg Tablet) 6 mg PO BEDTIME PRN PRN Reason: Insomnia Methylprednisolone Sodium Succinate (Methylprednisolone Sod Succ 125 Mg/2 Ml Vial) 60 mg IVPUSH ONCE ONE Stop: 03/10/23 11:24 Morphine Sulfate (Morphine Sulfate 2 Mg/Ml Cartridge) 2 mg IVPUSH Q6H PRN; Protocol PRN Reason: Pain, Severe (Pain Scale 7-10) Last Admin: 03/08/23 14:18 Dose: 2 mg Documented By: MARY Ondansetron HCl (Ondansetron Hcl 4 Mg/2 Ml Vial) 4 mg IVPUSH Q8H PRN PRN Reason: Nausea and Vomiting Last Admin: 03/06/23 17:14 Dose: 4 mg Documented By: ESTRELLA Oxycodone HCl (Oxycodone Hcl Immed Release 5 Mg Tablet) 5 mg PO Q4H PRN PRN Reason: Pain, Moderate(Pain Scale 4-6) Last Admin: 03/10/23 09:41 Dose: 5 mg Documented By: JASMYNE Sodium Chloride (0.9 % Sodium Chloride Flush 3 Ml Syringe) 3 ml IVFLUSH QSHIFT [facility] Last Admin: 03/10/23 09:36 Dose: 3 ml Documented By: JASMYNE Labs 03/10/23 05:38 03/10/23 05:38 Labs: Laboratory Results - last 24 hr 03/09/23 03/09/23 03/09/23 11:32 16:13 20:22 MCV MCH MCHC RDW Plt Count MPV Absolute Nucleated RBC Nucleated RBC % (auto) Anion Gap Estim Creat Clear Calc Estimated GFR POC Glucose 102 155 H 187 H Random Glucose Calcium C-Reactive Protein 03/10/23 03/10/23 03/10/23 05:38 05:38 07:09 MCV 86.9 MCH 27.8 MCHC 31.9 RDW 14.7 Plt Count 245 D MPV 12.3 Absolute Nucleated RBC 0.000 Nucleated RBC % (auto) 0.0 Anion Gap 12 Estim Creat Clear Calc 135.5 Estimated GFR > 60 POC Glucose 69 Random Glucose 75 Calcium 9.3 C-Reactive Protein 9.89 H Microbiology Microbiology Results: Microbiology 03/04/23 13:50 Blood Culture - Final Blood - Venous No growth after 5 days. 03/04/23 13:50 Blood Culture - Final Blood - Venous No growth after 5 days. Assessment and Plan (1) Diffuse pulmonary alveolar hemorrhage: Status: Acute (2) Hemoptysis: Status: Acute (3) Acute respiratory failure with hypoxia: Status: Acute (4) Sepsis: Status: Acute (5) Cellulitis of right leg: Status: Acute Plan 57/m with diabetes here with right leg cellulitis with sepsis (criteria = WBC 15 + HR>90). Sepsis d/t RLE Cellulitis infection area improving slowly CT w contrast negative for abscess negative cultures Continue IV Clindamycin and LEvaquin Leg elevation and wash ID consult appreciated Acute hypoxic respiratory failure 2/2 community acquired Pneumonia w hemoptysis CXR showed new infiltrates and groundglass opacities ; infection vs hemorrhage covered with Cindamycin , Ceftriaxone wean O2 down as tolerated CTA negative for PE Negative DIC screen Pending Vasculitides work up Pulm input appreciated , give 1 dose of steroid CPAP w O2 at night MINNIE , resolved Cr 0.8 hold nephrotoxin follow BMP Syncope Likely d/t Orthostatic Hypotension and Hypoglycemia no reported events while inpatient Hypoglycemia in Diabetes type 2 stable now Decreased Lantus to 40 units bid for now hold metformin d/t renal failure SSI, diabetic diet HLD continue Statin HTN (hypertension) continue Coreg hold olmesartan d/t renal failure, imdur Sleep apnea--CPAP CAD ASA, Coreg, Statin, imdur Mood desorder/Depression Bupropion DVT prophylaxis: Lovenox Full code Need overnight hosptial stay for cellulitis, hypoxia 2/2 pneumonia and needs IV Abx to prevent deterioration Time Spent With Patient Time: Total time managing care of this patient today ____ minutes. Quality Stroke Does the patient have a stroke diagnosis?: No VTE Prior VTE?: No VTE Risk Level:: Medical - moderate - high VTE Device Contraindication: Treatment Not Indicated VTE Drug Contraindication: N/A - Med Ordered
[2023-03-10 11:45] LABS: Glucose, Whole Blood 143 mg/dL (60-115)
--- NOTE | 2023-03-10 13:02 | PM.PNPUL ---
Subjective Subjective Date of Service: 03/10/23 Interval history: The patient was seen on exam. Still on 4 L of oxygen. No significant hemoptysis at this point although he has had episodes. The sputum that is seen appears to showed dark blood which is reassuring. She did have a she repeat a chest x-ray done yesterday demonstrated no acute changes. At least no progression of disease. He has had a CT scan of the lower extremity which is reassuring demonstrating the cellulitis. Infectious Disease did evaluate the patient. They agreed with the current antibiotic regimen. Still, there was a concern of no response to antibiotics with significant which seem of the lower extremity. The possibility of vasculitis came out. His sedimentation rate is elevated although to be elevated from infection versus inflammatory process. Still waiting for the ANCA. Therefore, will try 1 dose of Solu-Medrol to see if there is improvements in his respiratory status. If the patient continues with hemoptysis he will need a bronchoscopy for a BAL to further address the diffuse alveolar hemorrhage question. Objective Data Labs 03/10/23 05:38 03/10/23 05:38 Labs: Laboratory Results - last 24 hr 03/09/23 03/09/23 03/10/23 16:13 20:22 05:38 WBC 10.3 RBC 4.43 L Hgb 12.3 L Hct 38.5 L MCV 86.9 MCH 27.8 MCHC 31.9 RDW 14.7 Plt Count 245 D MPV 12.3 Absolute Nucleated RBC 0.000 Nucleated RBC % (auto) 0.0 Sodium Potassium Chloride Carbon Dioxide Anion Gap BUN Creatinine Estim Creat Clear Calc Estimated GFR POC Glucose 155 H 187 H Random Glucose Calcium C-Reactive Protein 03/10/23 03/10/23 03/10/23 05:38 07:09 11:43 WBC RBC Hgb Hct MCV MCH MCHC RDW Plt Count MPV Absolute Nucleated RBC Nucleated RBC % (auto) Sodium 145 Potassium 4.0 Chloride 108 Carbon Dioxide 29 Anion Gap 12 BUN 19 H Creatinine 0.82 Estim Creat Clear Calc 135.5 Estimated GFR > 60 POC Glucose 69 143 H Random Glucose 75 Calcium 9.3 C-Reactive Protein 9.89 H Microbiology Microbiology Results: Microbiology 03/04/23 13:50 Blood - Venous Blood Culture - Final No growth after 5 days. 03/04/23 13:50 Blood - Venous Blood Culture - Final No growth after 5 days. Review of Systems Constitutional: Denies fever(s) Eyes: Denies change in vision Denies throat swelling Cardiovascular: Reports dyspnea Respiratory: Reports dyspnea and Denies wheezing Gastrointestinal: Reports no additional gastrointestinal complaints Musculoskeletal: Reports abnormal gait, Reports myalgias, Reports deformity, Reports arthralgias and Reports joint swelling Reports abnormal gait Hematologic/Lymphatic: Reports easy bleeding and Denies easy bruising Allergic/Immunologic: Denies throat swelling and Denies wheezing Physical Exam Vital Signs: Vital Signs: Last Vital Signs Temp 98.0 F 03/10/23 12:00 Pulse 87 03/10/23 12:00 Resp 20 03/10/23 12:00 BP 141/66 H 03/10/23 12:00 Pulse Ox 95 03/10/23 12:00 O2 Del Method Nasal Cannula 03/10/23 12:00 O2 Flow Rate 4 03/10/23 12:00 BMI result Body Mass Index 37.3 Const: General: comfortable HEENT: Head: Yes normocephalic Eyes: General: appearance normal, both eyes and all related structures Neck: Neck: Yes supple Chest: Chest palpation & inspection: normal inspection of the chest Resp: Effort & Inspection: normal respiratory effort Auscultation: diminished lung sounds Cardio: Rate: regular rate Rhythm: regular rhythm Heart sounds: S1 normal heart sound present, S2 normal heart sound present and Murmur heart sound present GI: Palpation (GI): Soft to palpation Skin: General skin exam: erythema and mottling (RLE) Trauma: no punctures noted Extrem: General: No clubbing, No cyanosis and Yes edema Right lower extremity: edema Procedures Date of Service Date of Service: 03/10/23 Assessment and Plan Assessment and plan (1) SARAH (obstructive sleep apnea): Status: Acute (2) Right leg swelling: Status: Acute (3) Hemoptysis: Status: Acute (4) Diffuse pulmonary alveolar hemorrhage: Status: Acute (5) Acute respiratory failure with hypoxia: Status: Acute Plan Recommendations: Broad-spectrum antibiotics to cover Staph aureus and Gram-negative organisms DIC screen, assessing for connective tissue diseases and vasculitides If the patient continues with the hemoptysis over the weekend and if he has any worsening respiratory symptoms or oxygen requirements would consider bronchoscopy to better assess the lung condition Continue oxygen supplementation to maintain a pulse ox above 90% Has been using CPAP 11 at night should be using the oxygen with the CPAP Trial Solumedrol x 1 today The guarded condition Time Spent With Patient Time: Total time managing care of this patient today ____ minutes. Progress Note: Quality Stroke Does the patient have a stroke diagnosis?: No
[2023-03-10] MEDS: methylPREDNISolone Sod Succ 125 MG/2 ML VIAL 60 MG IVPUSH (13:47)
[2023-03-10 16:38] LABS: Glucose, Whole Blood 103 mg/dL (60-115)
[2023-03-10] MEDS: levoFLOXacin/D5W 750 MG/150 ML PIGGYBACK 100 MG IV (18:02)
[2023-03-10 20:38] LABS: Glucose, Whole Blood 358 mg/dL (60-115)
[2023-03-10] MEDS: Insulin Lispro 100 UNIT/ML 3 ML VIAL SUBCUT ×2 (21:28→21:42)
[2023-03-10] MEDS: Atorvastatin Calcium 80 MG TABLET PO (21:29)
[2023-03-11 03:29] VITALS: BP 153/71; PULSE 86; RESP 17; TEMP 36.7; O2SAT 97
[2023-03-11] MEDS: Clindamycin Phosphate/D5W 600 MG/50 ML PIGGYBACK 100 MG IV (04:36)
[2023-03-11 07:24] VITALS: BP 162/79; PULSE 82; RESP 20; TEMP 36.1; O2SAT 93
[2023-03-11 07:28] LABS: Creatinine Clr Calc Pharmacy 133.9; Estimated Glomerular Filt Rate > 60
[2023-03-11 07:43] LABS: Glucose, Whole Blood 84 mg/dL (60-115)
[2023-03-11] MEDS: Doxazosin Mesylate 2 MG TABLET 4 MG PO (09:38)
[2023-03-11] MEDS: Gabapentin 300 MG CAPSULE PO (09:38)
[2023-03-11] MEDS: Empagliflozin 10 MG TABLET PO (09:38)
[2023-03-11] MEDS: buPROPion HCl XL 300 MG TAB.ER.24H PO (09:38)
[2023-03-11] MEDS: Isosorbide Mononitrate 30 MG TAB.ER.24H PO (09:38)
[2023-03-11] MEDS: Losartan Potassium 25 MG TABLET PO (09:39)
[2023-03-11] MEDS: amLODIPine Besylate 5 MG TABLET PO (09:39)
[2023-03-11] MEDS: Fenofibrate 160 MG TABLET PO (09:39)
[2023-03-11] MEDS: carvediloL 12.5 MG TABLET 50 MG PO (09:39)
[2023-03-11] MEDS: buPROPion HCl XL 150 MG TAB.ER.24H PO (09:40)
[2023-03-11] MEDS: Fluticasone Propionate Nasal 16 GM SPRAY 1 SPRAY NOSTRIL-B (09:42)
[2023-03-11] MEDS: 0.9 % Sodium Chloride Flush 3 ML SYRINGE IVFLUSH (09:43)
--- NOTE | 2023-03-11 10:34 | MHC.CM.PN ---
PT MEDICALLY CLEARED FOR D/C HOME NO SERVICES W/ FOR TRANSPORT.
[2023-03-11 11:17] LABS: Glucose, Whole Blood 181 mg/dL (60-115)
[2023-03-11] MEDS: Insulin Glargine,Hum.rec.anlog 100 UNIT/ML 10 ML VIAL 40 UNIT SUBCUT (11:35)
[2023-03-11] MEDS: Insulin Lispro 100 UNIT/ML 3 ML VIAL SUBCUT (11:35)
--- NOTE | 2023-03-11 11:36 | P.DS_ITS ---
DS: Providers Provider Date of Service: 03/11/23 Date of admission: 03/04/23 16:27 Primary care physician: Alvin Gill MD Consults: 03/06/23 17:24 Consult to Infectious Diseases Routine Consulting Provider: [facility] [place] [facility] Reason for consultation: worsening cellulitis for eval and rec Consult to Pulmonology Routine Consulting Provider: [facility] [place] [facility] Reason for consultation: Hemoptysis , pneumonia DS: Diagnosis Discharge Diagnosis (1) SARAH (obstructive sleep apnea): Status: Acute (2) Right leg swelling: Status: Acute (3) Hemoptysis: Status: Acute (4) Diffuse pulmonary alveolar hemorrhage: Status: Acute (5) Acute respiratory failure with hypoxia: Status: Acute (6) Sepsis: Status: Acute (7) Cellulitis of right leg: Status: Acute (8) MINNIE (acute kidney injury): Status: Acute (9) Hypoglycemia associated with type 2 diabetes mellitus: Status: Acute (10) Syncope: Status: Acute (11) Pneumonia: Status: Acute DS: Summary Hospital Course Hospital Course: Admission note HPI 57 year old male with? Diabetes, Heart disease, High cholesterol, High triglycerides, HTN (hypertension), and Sleep apnea--uses CPAP. He presents to the hospital with acute right leg pain, swelling, redness since yesterday. He denies trauma and has been having fever an chills. He just returned from a [place] trip. US of the right leg is negative? for dVT, WBC is high.? K is 3.1, Creatine 1.6 no baseline. ED treatement: Ceftriaxone + Vancomycin. He reportedly also had an episode of hypoglycemia and passed out when he stood up yesterday. Hospital course # Sepsis due to right lower extremity Cellulitis that was treated with IV antibiotics during hospital stay started on Vancomycin and Cefazolin then switched to Clindamycin and Levaquin as he was evaluated by infectious disease speacilaist as the infection area improved slowly and CT w contrast was negative for abscess. Blood cultures remained negative. erythema improved significantly but continued to have some pain with ambulation at time of discharge. To finish 1 more week of oral antibiotics and follow with PCP as outpatient. # Acute hypoxic respiratory failure 2/2 community acquired Pneumonia and alveolar hemorrhage that developed after admission to the hospital with CXR showed new infiltrates and groundglass opacities concerning for infection vs hemorrhage. he was already covered with antibiotics and evaluated by Policy Value Calculator as CTA and LE Doppler were negative for VTE. Negative DIC screen. still pending Vasculitides work up that will be followed by PCP. his symptoms improved with holding Aspirin and stopping DVT prophylaxis. weaned off O2 to room air. Policy Value Calculator suggested 1 dose trial of steroid. CPAP w O2 at night # Had MINNIE at time of presentation which resolved # Presented with Syncope which was Likely?due to Orthostatic Hypotension and Hypoglycemia. no reported events while inpatient. No abnormalities on Tele. # Hypoglycemia in Diabetes type 2 at time of presentaiton. Decreased Lantus to 40 units bid while inpatient. To restart Metformin at time of discharge. advised to start with 50 units bid at home and increase it as needed based on blood sugar readings for the next few days. Continue Clindamycin and Levofloxacin for 1 more week Keep leg elevated, wash with soap and water daily To follow with PCP for results of blood work start with 50 units insulin bid at home and increase it as needed based on blood sugar readings for the next few days. Come back to the hospital for any worsening shortness of breath, fever or erythema of the skin Time Spent with Patient Time attestation: Total time managing care of this patient today ____ minutes. Discharge coordination time: Greater than 30 minutes Quality: Safe Use of Opioids Does Pt have an Active Cancer Diagnosis on the Problem List?: No Quality: Stroke Does the patient have a stroke diagnosis?: No Physical Exam Vital Signs: Vital Signs: Last Vital Signs Temp 97 F 03/11/23 07:24 Pulse 82 03/11/23 07:24 Resp 20 03/11/23 07:24 BP 162/79 H 03/11/23 07:24 Pulse Ox 93 03/11/23 07:24 O2 Del Method Room Air 03/11/23 07:24 O2 Flow Rate 2 03/11/23 03:29 BMI result Body Mass Index 37.3 Const: Other: Constitutional : Awake, interactive, not in distress Neck : Normal inspection, Supple Cardiovascular : RRR, no JVP, no significant lower extremity edema Respiratory : good bilateral air entry, basal fine crackles, no significant wheezes or rhonchi Gastrointestinal: soft, lax, Normal bowel sounds, Non tender Skin : Warm, Dry, RLE improved with less erythema, tenderness and warmth below knee with less edema Neurological : Alert & oriented x3, No focal deficit DS: Data Data Completed and Pending Labs on day of discharge: Laboratory Results - last 24 hr 03/10/23 03/10/23 03/10/23 11:43 16:31 20:32 Creatinine Estim Creat Clear Calc Estimated GFR POC Glucose 143 H 103 358 H* 03/11/23 03/11/23 03/11/23 05:43 07:28 11:14 Creatinine 0.83 Estim Creat Clear Calc 133.9 Estimated GFR > 60 POC Glucose [address] leg : Radiologist's impression: ITS Impressions Venous Duplex 03/04/23 13:30 IMPRESSION: No DVT demonstrated in the right lower extremity. Chest X-Ray 03/04/23 14:19 IMPRESSION: No evidence for acute disease in the chest. Chest X-Ray 03/04/23 20:24 IMPRESSION: Findings are suggestive of worsening pulmonary edema versus worsening atypical/viral infection. Close attention on follow-up to ensure improvement/resolution. Chest X-Ray 03/05/23 17:27 IMPRESSION: Questionable newly developed groundglass opacities in the right lung which could be seen with an atypical infection/pneumonia. Recommend clinical correlation and a follow-up examination to ensure resolution. Venous Duplex 03/07/23 09:55 IMPRESSION: No DVT demonstrated in the right lower extremity. No change from the recent ultrasound 12/02/2022. Chest CTA 03/07/23 12:24 IMPRESSION: 1. No evidence of PE. 2. No evidence of aortic aneurysm. 3. Small bilateral pleural effusions with bibasilar atelectasis/consolidation. 4. Small pericardial effusion. 5. There is right upper lobe patchy groundglass attenuation suspicious for developing infiltrate. VTE: negative. Lower Extremity CT 03/08/23 15:12 IMPRESSION: Diffuse subcutaneous edema throughout the lower leg and extending along the dorsum of the foot. This could represent cellulitis. No abscess. Chest X-Ray 03/10/23 07:58 IMPRESSION: - Redemonstration of mild patchy interstitial groundglass opacification unchanged from prior exam. - No pleural effusion. Discharge Plan Discharge Anticipated Discharge Date/Time: 03/11/23 11:26 Patient Disposition: Home, Self-Care Discharge Diagnosis: Sepsis from right lower extremity cellulitis Pulmonary hemorrhage , pneumonia Referrals: Alvin Gill MD [Primary Care Provider] - 1 Week Discharge Medications: New levofloxacin 750 mg tablet 750 mg PO DAILY Qty: 7 0RF clindamycin HCl 300 mg capsule 300 mg PO Q6H Qty: 28 0RF Continued atorvastatin 80 mg tablet 80 mg PO BEDTIME carvedilol 25 mg tablet 50 mg PO BID isosorbide mononitrate 30 mg tablet extended release 24 hr 30 mg PO DAILY aspirin 81 mg tablet,delayed release (DR/EC) 81 mg PO DAILY doxazosin 4 mg tablet 4 mg PO DAILY fluticasone propionate 50 mcg/actuation spray,suspension 1 spray intranasal BID metformin 500 mg tablet extended release 24 hr 1,000 mg PO BID olmesartan-hydrochlorothiazide 40-25 mg tablet 1 tab PO DAILY bupropion HCl 150 mg tablet extended release 24 hr 150 mg PO DAILY fenofibrate 160 mg tablet 160 mg PO DAILY insulin degludec [Tresiba FlexTouch U-100] 100 unit/mL (3 mL) insulin pen 75 unit subcut BID Farxiga 10 mg tablet 10 mg PO DAILY Trulicity 3 mg/0.5 mL pen injector 3 mg subcut MO gabapentin 300 mg capsule 300 mg PO TID olmesartan 20 mg tablet 20 mg PO DAILY bupropion HCl 300 mg tablet extended release 24 hr 300 mg PO DAILY Discharge Orders: Discharge Order (Routine); Ordered 03/11/23 Ordered By: Martha Agnulo Diet: Diabetic diet Activity on Discharge: As tolerated Stand Alone Forms: Patient Portal Discharge page, Work/School Release Care Plan Goals: Read below Health Concerns: Read below Plan of Treatment: Read below Assessment: You were admitted for treatment of sepsis secondary to right lower extremity cellulitis. treated with IV antibiotics with good ressponse as CT scan did not show any abscesses. Evaluated by Infectious disease specialist who recommended to finish 2 weeks of antibiotics as your blood cultures remained negative. Noted to have bloody mucus. Chest images were concerning for possible lung hemorrhage vs pneumonia which was evaluated by claims account manager as blood thinners and aspirin were held with resolution of the problem and weaning off the Oxygen. Blood work for inflammatory causes are pending at time of discharge. Continue Clindamycin and Levofloxacin for 1 more week Keep leg elevated, wash with soap and water daily To follow with PCP for results of blood work Come back to the hospital for any worsening shortness of breath, fever or erythema of the skin
[2023-03-11 11:37] LABS: Immunoglobulin G 494 mg/dL (600-1640)
[2023-03-11] MEDS: predniSONE 20 MG TABLET 40 MG PO (13:03)
[2023-03-11] MEDS: levoFLOXacin 750 MG TABLET PO (13:03)
[2023-03-11] MEDS: Clindamycin HCL 300 MG CAPSULE PO (13:03)
[2023-03-11] MEDS: Acetaminophen 325 MG TABLET 650 MG PO (13:05)
[2023-03-11 14:08] LABS: Myeloperoxidase Antibody <1.0 AI; Proteinase 3 PR3 Antibodies <1.0 AI
[2023-03-11 14:48] LABS: Anti Nuclear Antibody Screen NEGATIVE (NEGATIVE)
[2023-03-11 15:23] LABS: Cyclic Citrullinated Peptide <16 UNITS
[2023-03-11 23:03] LABS: Immunoglobulin E 29 kU/L (<OR=114)
== END 2023-03-11 14:10 | disposition home or self-care (01) | DRG 871 ==
LOC: HO.ED 13:05 → HO.EDOVER 16:40 → HO.IMC 16:52
PROVIDERS: Hospitalist; Internal Medicine; Physician Assistant Medical; Admitting Provider Internal Medicine; Emergency Provider Internal Medicine; PCP Family Medicine; Visit Provider Student in an Organized Health Care Education/Training Program
DX: A41.9 Sepsis, unspecified organism (principal); J18.9 Pneumonia, unspecified organism; J96.01 Acute respiratory failure with hypoxia; N17.9 Acute kidney failure, unspecified; L03.115 Cellulitis of right lower limb; R04.2 Hemoptysis; J98.11 Atelectasis; J91.8 Pleural effusion in other conditions classified elsewhere; R04.89 Hemorrhage from other sites in respiratory passages; E78.2 Mixed hyperlipidemia; I25.10 Atherosclerotic heart disease of native coronary artery without angina pectoris; E11.649 Type 2 diabetes mellitus with hypoglycemia without coma; F32.A Depression, unspecified; I95.1 Orthostatic hypotension; E66.09 Other obesity due to excess calories; Z68.37 Body mass index [BMI] 37.0-37.9, adult; G47.33 Obstructive sleep apnea (adult) (pediatric); Z20.822 Contact with and (suspected) exposure to COVID-19; Z79.51 Long term (current) use of inhaled steroids; Z79.4 Long term (current) use of insulin; Z79.82 Long term (current) use of aspirin; Z79.84 Long term (current) use of oral hypoglycemic drugs; Z79.899 Other long term (current) drug therapy
CPT/HCPCS: 36415; 71045; 71275; 73701; 80048; 80076; 80202; 82565; 82784; 82785; 82947; 83605; 83690; 83735; 83880; 84484; 85025; 85027; 85379; 85384; 85610; 85652; 85730; 86021; 86038; 86140; 86200; 87040; 87502; 87635; 93005; 93971; 94660; 99285; J0456; J0690; J0696; J1940; J1956; J2270; J2405; J2930; J3370; J3371; Q9967

== ENCOUNTER → 2023-03-04 16:27 | Outpatient (BNV) | payer OTHER, SELFPAY | PROVIDERS: Admitting Provider Internal Medicine; Emergency Provider Internal Medicine; PCP Family Medicine; Visit Provider Student in an Organized Health Care Education/Training Program | DX: J96.01 Acute respiratory failure with hypoxia (principal); A41.9 Sepsis, unspecified organism; R04.2 Hemoptysis; R04.89 Hemorrhage from other sites in respiratory passages; L03.115 Cellulitis of right lower limb | CPT/HCPCS: 99223; 99233; 99239; 99499 ==

== ENCOUNTER → 2023-03-04 16:27 | Outpatient (BNV) | payer OTHER, SELFPAY | PROVIDERS: Admitting Provider Internal Medicine; Emergency Provider Internal Medicine; PCP Family Medicine; Visit Provider Internal Medicine | DX: R04.89 Hemorrhage from other sites in respiratory passages (principal); R04.2 Hemoptysis; M79.89 Other specified soft tissue disorders | CPT/HCPCS: 99222 ==

== ENCOUNTER → 2023-03-04 16:27 | Outpatient (BNV) | payer OTHER, SELFPAY | PROVIDERS: Admitting Provider Internal Medicine; Emergency Provider Internal Medicine; PCP Family Medicine; Visit Provider Hospitalist | DX: G47.33 Obstructive sleep apnea (adult) (pediatric) (principal); M79.89 Other specified soft tissue disorders; R04.2 Hemoptysis; R04.89 Hemorrhage from other sites in respiratory passages; J96.01 Acute respiratory failure with hypoxia | CPT/HCPCS: 99223; 99232; 99233 ==

== ENCOUNTER 2023-04-16 13:16 | Emergency (ER) | payer OTHER, SELFPAY ==
[2023-04-16 13:19] VITALS: BP 151/83; PULSE 84; RESP 18; TEMP 36.8; O2SAT 96; BMI 36.9
--- NOTE | 2023-04-16 13:19 | ED.GENADULT ---
[facility] - General Adult General Chief complaint: General Medical Stated complaint: Cellulitis Related Data Home Medications ?Medication ?Instructions ?Recorded ?Confirmed aspirin 81 mg tablet,delayed 81 mg PO DAILY 03/04/23 03/04/23 release atorvastatin 80 mg tablet 80 mg PO BEDTIME 03/04/23 03/04/23 bupropion HCl 150 mg 24 hr tablet, 150 mg PO DAILY 03/04/23 03/04/23 extended release bupropion HCl 300 mg 24 hr tablet, 300 mg PO DAILY 03/04/23 03/04/23 extended release carvedilol 25 mg tablet 50 mg PO BID 03/04/23 03/04/23 dapagliflozin propanediol 10 mg 10 mg PO DAILY 03/04/23 03/04/23 tablet (Farxiga) doxazosin 4 mg tablet 4 mg PO DAILY 03/04/23 03/04/23 dulaglutide 3 mg/0.5 mL 3 mg subcut MO 03/04/23 03/04/23 subcutaneous [facility] ([facility]) fenofibrate 160 mg tablet 160 mg PO DAILY 03/04/23 03/04/23 fluticasone propionate 50 1 spray intranasal BID 03/04/23 03/04/23 mcg/actuation nasal spray,suspension gabapentin 300 mg capsule 300 mg PO TID 03/04/23 03/04/23 insulin degludec 100 unit/mL (3 75 unit subcut BID 03/04/23 03/04/23 mL) subcutaneous pen (Tresiba FlexTouch U-100 insulin) isosorbide mononitrate 30 mg 30 mg PO DAILY 03/04/23 03/04/23 tablet,extended release 24 hr metformin 500 mg tablet,extended 1,000 mg PO BID 03/04/23 03/04/23 release 24 hr olmesartan 40 1 tab PO DAILY 03/04/23 03/04/23 mg-hydrochlorothiazide 25 mg tablet Previous Rx's ?Medication ?Instructions ?Recorded levofloxacin 750 mg tablet 750 mg PO DAILY #7 tabs 03/11/23 prednisone 10 mg tablet See Taper PO DIRECTED #20 tabs 03/11/23 betamethasone dipropionate 0.05 % 1 appl topical DAILY 1 week #45 04/17/23 topical cream grams compr.stocking,knee,long,large #24 ea 04/17/23 mupirocin 2 % topical ointment 1 appl topical BID 7 days #15 grams 04/17/23 Allergies Allergy/AdvReac Type Severity Reaction Status Date / Time amoxicillin [Augmentin] Allergy Unknown Unknown Verified 09/10/23 09:00 clavulanic acid [Augmentin] Allergy Unknown Unknown Verified 09/10/23 09:00 [facility] Past Medical History Medical History SARAH (obstructive sleep apnea) High triglycerides High cholesterol HTN (hypertension) Heart disease Diabetes Sleep apnea Surgical History S/P reconstruction of ligament of knee joint H/O heart artery stent Social History Social History Household Members: Spouse Housing: House Do you presently have visiting nurse or other home services: No Alcohol intake: never Patient Tobacco Use Status: Never used Tobacco Advance Directives Date on File: 03/12/23 service: No Physical Exam ED Vital Signs: Vital Signs - 24 hr 04/16/23 13:19 Temperature 98.3 F Pulse Rate 84 Respiratory Rate 18 Blood Pressure 151/83 H Pulse Oximetry 96 Oxygen Delivery Method Room Air BMI result Body Mass Index 36.9 Course Course Course Narrative: This is an RME: Additional HPI, ROS, PE not included below will be deferred to primary provider. 58 yo m presenting w/ right leg cellulitis not responding to atbx has been on po and iv and stil worsening. Medical Decision Making Lab Data 04/16/23 15:56 04/16/23 15:56 Labs: Lab Results 04/16/23 Range/Units 15:56 WBC 7.8 (4.8-10.8) X10*3/uL RBC 4.65 (4.60-5.80) X10*6/uL Hgb 12.8 L (14.0-18.0) g/dl Hct 40.1 L (42.0-52.0) % MCV 86.2 (80.0-98.0) fL MCH 27.5 (27.0-33.0) pg MCHC 31.9 (31.0-36.0) g/dl RDW 15.0 (11.0-16.0) % Plt Count 184 (160-400) X10*3/uL MPV 11.7 (9.4-12.4) fL Immature Gran % (Auto) 0.3 (0.0-0.4) % Neut % (Auto) 60.0 (45-73) % Lymph % (Auto) 25.6 (20-40) % [place] % (Auto) 7.7 (2-11) % Eos % (Auto) 5.1 H (0-4) % Baso % (Auto) 1.3 (0-2) % Lymph # (Auto) 2.0 (1.2-4.9) X10*3/uL [place] # (Auto) 0.6 (0.1-1.2) X10*3/uL Eos # (Auto) 0.4 (0.0-0.4) X10*3/uL Baso # (Auto) 0.1 (0.0-0.2) X10*3/uL Abs Immat Gran (auto) 0.02 (0.00-0.03) X10*3/uL Absolute Neuts (auto) 4.7 (2.0-8.3) x10*3/uL Absolute Nucleated RBC 0.000 (0.0-0.012) X10*3/uL Nucleated RBC % (auto) 0.0 (0.0-0.2) /100WBC PT 11.9 (11.1-13.3) SEC INR 1.0 (0.9-1.1) Sodium 142 (135-145) mmol/L Potassium 3.7 (3.3-5.1) mmol/L Chloride 107 (96-108) mmol/L Carbon Dioxide 27 (22-29) mmol/L Anion Gap 12 (12-20) BUN 21 H (9-16) mg/dL Creatinine 1.15 (0.5-1.4) mg/dL Estim Creat Clear Calc 96.1 Estimated GFR > 60 Random Glucose 180 H (60-115) mg/dL Calcium 9.5 (8.4-10.2) mg/dL Total Bilirubin 0.5 (0.0-1.0) mg/dL AST 17 (5-37) U/L ALT 22 (0-40) U/L Alkaline Phosphatase 49 (39-117) U/L Total Protein 7.0 (6.5-8.0) g/dL Albumin 4.2 (3.5-5.0) g/dL Discharge Plan Discharge Clinical Impression: Eloped from emergency department Patient Disposition: Left W/O Completing Treatment Prescriptions: No Action atorvastatin 80 mg tablet 80 mg PO BEDTIME carvedilol 25 mg tablet 50 mg PO BID isosorbide mononitrate 30 mg tablet extended release 24 hr 30 mg PO DAILY aspirin 81 mg tablet,delayed release (DR/EC) 81 mg PO DAILY doxazosin 4 mg tablet 4 mg PO DAILY fluticasone propionate 50 mcg/actuation spray,suspension 1 spray intranasal BID metformin 500 mg tablet extended release 24 hr 1,000 mg PO BID olmesartan-hydrochlorothiazide 40-25 mg tablet 1 tab PO DAILY bupropion HCl 150 mg tablet extended release 24 hr 150 mg PO DAILY fenofibrate 160 mg tablet 160 mg PO DAILY insulin degludec [Tresiba FlexTouch U-100] 100 unit/mL (3 mL) insulin pen 75 unit subcut BID Farxiga 10 mg tablet 10 mg PO DAILY Trulicity 3 mg/0.5 mL pen injector 3 mg subcut MO gabapentin 300 mg capsule 300 mg PO TID bupropion HCl 300 mg tablet extended release 24 hr 300 mg PO DAILY levofloxacin 750 mg tablet 750 mg PO DAILY Qty: 7 0RF prednisone 10 mg tablet See Taper PO DIRECTED Qty: 20 0RF Taper: Prednisone 40 mg daily for 2 Days and 0 Hour 30 mg daily for 2 Days and 0 Hour 20 mg daily for 2 Days and 0 Hour 10 mg daily for 2 Days and 0 Hour Rx Instructions: see taper instructions mupirocin 2 % ointment 1 appl topical BID 7 Days Qty: 15 0RF betamethasone dipropionate 0.05 % cream 1 appl topical DAILY 7 Days Qty: 45 0RF (DME) compr.stocking,knee,long,large Misc See Rx Instructions .Route Qty: 24 0RF Rx Instructions: As directed Discharge Date/Time: 04/16/23 21:46
[2023-04-16 16:02] LABS: MANUAL DIFF FLAG NO
[2023-04-16 16:10] LABS: Basophils Absolute Auto 0.1 X10*3/uL (0.0-0.2); Basophils Percent Auto 1.3 % (0-2); Eosinophils Absolute Auto 0.4 X10*3/uL (0.0-0.4); Eosinophils Percent Auto 5.1 % (0-4); Hematocrit 40.1 % (42.0-52.0); Hemoglobin 12.8 g/dl (14.0-18.0); Imm Gran Abs Auto 0.02 X10*3/uL (0.00-0.03); Imm Gran Pct Auto 0.3 % (0.0-0.4); Lymphocytes Percent Auto 25.6 % (20-40); Mean Corpuscular HGB Conc 31.9 g/dl (31.0-36.0); Mean Corpuscular Hemoglobin 27.5 pg (27.0-33.0); Mean Corpuscular Volume 86.2 fL (80.0-98.0); Mean Platelet Volume 11.7 fL (9.4-12.4); Monocytes Absolute Auto 0.6 X10*3/uL (0.1-1.2); Monocytes Percent Auto 7.7 % (2-11); Neutrophils Absolute Auto 4.7 x10*3/uL (2.0-8.3); Platelet Count 184 X10*3/uL (160-400); Red Blood Count 4.65 X10*6/uL (4.60-5.80); White Blood Count 7.8 X10*3/uL (4.8-10.8)
[2023-04-16 16:14] LABS: Prothrombin Time 11.9 SEC (11.1-13.3)
[2023-04-16 16:25] LABS: Alanine Aminotransferase 22 U/L (0-40); Albumin Level 4.2 g/dL (3.5-5.0); Alkaline Phosphatase 49 U/L (39-117); Anion Gap 12 (12-20); Aspartate Amino Transferase 17 U/L (5-37); Bilirubin Total 0.5 mg/dL (0.0-1.0); Blood Urea Nitrogen 21 mg/dL (9-16); Calcium 9.5 mg/dL (8.4-10.2); Carbon Dioxide 27 mmol/L (22-29); Chloride 107 mmol/L (96-108); Creatinine Clr Calc Pharmacy 96.1; Estimated Glomerular Filt Rate > 60; Glucose Random 180 mg/dL (60-115); Potassium 3.7 mmol/L (3.3-5.1); Sodium 142 mmol/L (135-145)
[2023-04-16 19:43] VITALS: BP 181/78; PULSE 84; RESP 18; TEMP 36.7; O2SAT 97
== END 2023-04-16 21:46 | disposition left against medical advice (07) ==
PROVIDERS: Physician Assistant; Emergency Provider Emergency Medicine; PCP Family Medicine
DX: L03.115 Cellulitis of right lower limb (principal); R60.0 Localized edema; E11.9 Type 2 diabetes mellitus without complications; I11.9 Hypertensive heart disease without heart failure; E78.00 Pure hypercholesterolemia, unspecified; I51.9 Heart disease, unspecified; Z79.899 Other long term (current) drug therapy; Z79.4 Long term (current) use of insulin; Z79.82 Long term (current) use of aspirin
CPT/HCPCS: 36415; 80053; 85025; 85610; 99281; 99283

== ENCOUNTER 2023-04-17 09:04 | Emergency (ER) | payer OTHER, SELFPAY ==
--- NOTE | ~2023-04-17 | US_ITS ---
EXAMINATION: US VENOUS ULTRASOUND WITH DOPPLER LOWER EXTREMITY, BILATERAL CLINICAL INFORMATION: Pain and swelling COMPARISON: 03/04/2023 TECHNIQUE: Ultrasound of the deep veins is performed from the hip to the calf with compression sonography and color and pulse Doppler assessment. Spectral analysis with color-flow imaging is performed. FINDINGS: RIGHT: There is normal venous compression and respiratory variation and augmented flow. The visualized common femoral vein, superficial femoral vein, profunda femoral vein, popliteal vein, and the trifurcation region shows no evidence of deep venous thrombosis. There is no significant popliteal fossa cyst. LEFT: There is normal venous compression and respiratory variation and augmented flow. The visualized common femoral vein, superficial femoral vein, profunda femoral vein, popliteal vein, and the trifurcation region shows no evidence of deep venous thrombosis. There is no significant popliteal fossa cyst. If the patient's symptoms persist, followup ultrasound in 5 days 7 days might be of value to exclude proximal propagation from a non-visualized calf vein. US/US venous duplex LE BI IMPRESSION: No DVT demonstrated in the right and left lower extremity.
[2023-04-17 09:38] VITALS: BP 123/62; PULSE 82; RESP 20; TEMP 36.6; O2SAT 95; BMI 36.8
[2023-04-17 10:29] LABS: MANUAL DIFF FLAG NO
[2023-04-17 10:33] LABS: Basophils Absolute Auto 0.1 X10*3/uL (0.0-0.2); Eosinophils Absolute Auto 0.4 X10*3/uL (0.0-0.4); Eosinophils Percent Auto 4.6 % (0-4); Hematocrit 39.1 % (42.0-52.0); Hemoglobin 12.7 g/dl (14.0-18.0); Imm Gran Abs Auto 0.01 X10*3/uL (0.00-0.03); Imm Gran Pct Auto 0.1 % (0.0-0.4); Lymphocytes Absolute Auto 1.7 X10*3/uL (1.2-4.9); Lymphocytes Percent Auto 22.1 % (20-40); Mean Corpuscular HGB Conc 32.5 g/dl (31.0-36.0); Mean Corpuscular Volume 86.1 fL (80.0-98.0); Mean Platelet Volume 11.8 fL (9.4-12.4); Monocytes Absolute Auto 0.7 X10*3/uL (0.1-1.2); Monocytes Percent Auto 8.6 % (2-11); Neutrophils Absolute Auto 4.9 x10*3/uL (2.0-8.3); Neutrophils Percent Auto 63.6 % (45-73); Platelet Count 198 X10*3/uL (160-400); Red Blood Count 4.54 X10*6/uL (4.60-5.80); Red Cell Distribution Width 14.9 % (11.0-16.0); White Blood Count 7.8 X10*3/uL (4.8-10.8)
[2023-04-17 10:54] LABS: Alanine Aminotransferase 21 U/L (0-40); Alkaline Phosphatase 48 U/L (39-117); Anion Gap 11 (12-20); Aspartate Amino Transferase 16 U/L (5-37); Bilirubin Direct 0.2 mg/dL (0.0-0.5); Bilirubin Total 0.6 mg/dL (0.0-1.0); Blood Urea Nitrogen 21 mg/dL (9-16); Calcium 10.1 mg/dL (8.4-10.2); Carbon Dioxide 25 mmol/L (22-29); Chloride 110 mmol/L (96-108); Creatinine Clr Calc Pharmacy 92.8; Estimated Glomerular Filt Rate > 60; Glucose Random 128 mg/dL (60-115); Lipase 57 U/L (8-78); Sodium 142 mmol/L (135-145); Total Protein 6.6 g/dL (6.5-8.0)
--- NOTE | 2023-04-17 13:00 | ED.SKABFB ---
HPI - Skin/Abscess/Foreign Bdy General Chief complaint: Skin/Abscess/Foreign Body Stated complaint: cellulitis L leg infection Time Seen by Provider: 04/17/23 12:59 Source: patient and old records reviewed Mode of arrival: ambulatory Limitations: no limitations History of Present Illness HPI narrative: 58 yo male with PMH of DM, CAD, HLD, HTN, elevated triglycerides, HTN, SARAH uses CPAP s/p recent hospital admission 03/04- 03/11 complicated by pulm hemorrhage, MINNIE, sepsis due to RLE cellulitis - ID recommended oral clindamycin and levofloxacin which wasnt' working after finishin 10 day course and PCP started him on bactrim afterwards last dose this AM. He notes the leg is not totally better and he still has redness but no fevers, n/v. He just doesnt know why it is not better. He has swelling in leg too not on thinners. MD complaint: rash Onset (ago): month(s) (1) Tetanus up to date: yes Location: RLE Severity: mild Quality: dull Relieving factors: medication Exacerbating factors: none Context: recent illness and recent antibiotic Associated symptoms: denies other symptoms Treatments prior to arrival: antibiotic Related Data Home Medications Medication Instructions Recorded Confirmed aspirin 81 mg tablet,delayed 81 mg PO DAILY 03/04/23 03/04/23 release atorvastatin 80 mg tablet 80 mg PO BEDTIME 03/04/23 03/04/23 bupropion HCl 150 mg 24 hr tablet, 150 mg PO DAILY 03/04/23 03/04/23 extended release bupropion HCl 300 mg 24 hr tablet, 300 mg PO DAILY 03/04/23 03/04/23 extended release carvedilol 25 mg tablet 50 mg PO BID 03/04/23 03/04/23 dapagliflozin propanediol 10 mg 10 mg PO DAILY 03/04/23 03/04/23 tablet (Farxiga) doxazosin 4 mg tablet 4 mg PO DAILY 03/04/23 03/04/23 dulaglutide 3 mg/0.5 mL 3 mg subcut MO 03/04/23 03/04/23 subcutaneous pen injector (Trulicity) fenofibrate 160 mg tablet 160 mg PO DAILY 03/04/23 03/04/23 fluticasone propionate 50 1 spray intranasal BID 03/04/23 03/04/23 mcg/actuation nasal spray,suspension gabapentin 300 mg capsule 300 mg PO TID 03/04/23 03/04/23 insulin degludec 100 unit/mL (3 75 unit subcut BID 03/04/23 03/04/23 mL) subcutaneous pen (Tresiba FlexTouch U-100 insulin) isosorbide mononitrate 30 mg 30 mg PO DAILY 03/04/23 03/04/23 tablet,extended release 24 hr metformin 500 mg tablet,extended 1,000 mg PO BID 03/04/23 03/04/23 release 24 hr olmesartan 20 mg tablet 20 mg PO DAILY 03/04/23 03/04/23 olmesartan 40 1 tab PO DAILY 03/04/23 03/04/23 mg-hydrochlorothiazide 25 mg tablet Previous Rx's Medication Instructions Recorded clindamycin HCl 300 mg capsule 300 mg PO Q6H #28 caps 03/11/23 levofloxacin 750 mg tablet 750 mg PO DAILY #7 tabs 03/11/23 prednisone 10 mg tablet See Taper PO DIRECTED #20 tabs 03/11/23 betamethasone dipropionate 0.05 % 1 appl topical DAILY 1 week #45 04/17/23 topical cream grams cephalexin 500 mg capsule 500 mg PO QID 7 days #28 caps 04/17/23 compr.stocking,knee,long,large #24 ea 04/17/23 mupirocin 2 % topical ointment 1 appl topical BID 7 days #15 grams 04/17/23 Allergies Allergy/AdvReac Type Severity Reaction Status Date / Time amoxicillin [Augmentin] Allergy Unknown Unknown Verified 04/17/23 09:41 clavulanic acid [Augmentin] Allergy Unknown Unknown Verified 04/17/23 09:41 Review of Systems Review of Systems: Constitutional : No Fever, No Chills ENT/Mouth : No sore throat, No Rhinorrhea Eyes: No Eye Pain, No Swelling, No Redness Cardiovascular : No Chest Pain, No SOB Respiratory : No Cough, No Sputum Gastrointestinal : No Nausea, No Vomiting, No Diarrhea, No abdominal Pain Genitourinary : No Dysuria, No Hematuria Musculoskeletal : No joint pain, No Myalgias, No Joint Swelling Skin : No Skin Lesions, positive skin rash Neuro : No Weakness, No Numbness, No Headache Psych : No Anxiety, No Depression Heme/Lymph: No Bruising, No Bleeding,No Lymphadenopathy Endocrine : No Polyuria, No Polydipsia All other systems reviewed and are negative [facility] Past Medical History Attestation statement: The following information was validated with the patient. Source: old records reviewed Medical History SARAH (obstructive sleep apnea) High triglycerides High cholesterol HTN (hypertension) Heart disease Diabetes Sleep apnea Surgical History S/P reconstruction of ligament of knee joint H/O heart artery stent Social History Social History Household Members: Spouse Housing: House Do you presently have visiting nurse or other home services: No Alcohol intake: never Patient Tobacco Use Status: Never used Tobacco Advance Directives Date on File: 03/12/23 service: No Physical Exam Vital Signs: Vital Signs: Last Vital Signs Temp 97.9 F 04/17/23 09:38 Pulse 75 04/17/23 15:52 Resp 19 04/17/23 15:52 BP 156/89 H 04/17/23 15:52 Pulse Ox 96 04/17/23 15:52 O2 Del Method Room Air 04/17/23 15:52 BMI result Body Mass Index 36.8 Appearance: Alert. Oriented X3. No acute distress. Eyes: Pupils equal, round and reactive to light. ENT: Pharynx normal. Neck: Normal inspection. Neck supple. CVS: Normal heart rate and rhythm. Pulses normal. Respiratory: No respiratory distress. Breath sounds normal. Abdomen: Soft and nontender. Skin: Skin warm and dry. Normal skin color. Normal skin turgor. Extremities: 2+ pitting edema RLE ankle to mid calf mild shiny pink anterior skin changes but no abscess or fluctuance, crepitus mild warmth Neuro: Oriented X 3. No motor deficit. No sensory deficit. Course Course Course Narrative: given likely possible superimposed infection no hx of MRSA I am going to dose with ceftriaxone and DC home with topical and oral therapy Medications Administered Discontinued Medications Generic Name Dose Route Start Last Admin Trade Name Freq PRN Reason Stop Dose Admin Ceftriaxone Sodium 1 gm/ 0 gm 04/17/23 15:23 04/17/23 15:35 Lidocaine HCl 2.1 ml IM 04/17/23 15:24 1 kit ONCE ONE Administration Medical Decision Making Medical Decision Making MDM Narrative: 58 yo male with PMH of DM, CAD, HLD, HTN, elevated triglycerides, HTN, SARAH uses CPAP s/p recent hospital admission 03/04- 03/11 complicated by pulm hemorrhage, MINNIE, sepsis due to RLE cellulitis here without fevers but leg is still swollen and mild pink/redness. Pulses are intact I suspect that this is chronic venous stasis dermatitis and possible mild superimposed secondary infection if that it is mild. I am going to try to get him into vascular and wound care center. I will put him on cephalexin at this time and topical ointment after labs and DVT study. I do not think he requires admission given it is so mild Differential Diagnosis Differential Diagnoses: The differential diagnosis associated with the presentation includes venous stasis dermatitis, cellulitis Admission/Observation Consideration of admission/observation: Escalation of care including admission/observation considered labs normal VS normal very mild warmth minimal redness Lab Data [facility] Lab Attestation statement: I reviewed the patient's lab results. no WBC count, neg infl markers 04/17/23 10:22 04/17/23 10:22 Labs: Lab Results 04/17/23 Range/Units 10:22 WBC 7.8 (4.8-10.8) X10*3/uL RBC 4.54 L (4.60-5.80) X10*6/uL Hgb 12.7 L (14.0-18.0) g/dl Hct 39.1 L (42.0-52.0) % MCV 86.1 (80.0-98.0) fL MCH 28.0 (27.0-33.0) pg MCHC 32.5 (31.0-36.0) g/dl RDW 14.9 (11.0-16.0) % Plt Count 198 (160-400) X10*3/uL MPV 11.8 (9.4-12.4) fL Immature Gran % (Auto) 0.1 (0.0-0.4) % Neut % (Auto) 63.6 (45-73) % Lymph % (Auto) 22.1 (20-40) % Collin % (Auto) 8.6 (2-11) % Eos % (Auto) 4.6 H (0-4) % Baso % (Auto) 1.0 (0-2) % Lymph # (Auto) 1.7 (1.2-4.9) X10*3/uL Collin # (Auto) 0.7 (0.1-1.2) X10*3/uL Eos # (Auto) 0.4 (0.0-0.4) X10*3/uL Baso # (Auto) 0.1 (0.0-0.2) X10*3/uL Abs Immat Gran (auto) 0.01 (0.00-0.03) X10*3/uL Absolute Neuts (auto) 4.9 (2.0-8.3) x10*3/uL Absolute Nucleated RBC 0.000 (0.0-0.012) X10*3/uL Nucleated RBC % (auto) 0.0 (0.0-0.2) /100WBC ESR 8 (0-15) MM/HR Sodium 142 (135-145) mmol/L Potassium 4.0 (3.3-5.1) mmol/L Chloride 110 H (96-108) mmol/L Carbon Dioxide 25 (22-29) mmol/L Anion Gap 11 L (12-20) BUN 21 H (9-16) mg/dL Creatinine 1.19 (0.5-1.4) mg/dL Estim Creat Clear Calc 92.8 Estimated GFR > 60 Random Glucose 128 H (60-115) mg/dL Calcium 10.1 D (8.4-10.2) mg/dL Total Bilirubin 0.6 (0.0-1.0) mg/dL Direct Bilirubin 0.2 (0.0-0.5) mg/dL AST 16 (5-37) U/L ALT 21 (0-40) U/L Alkaline Phosphatase 48 (39-117) U/L C-Reactive Protein 0.19 (< or = 0.50) mg/dL Total Protein 6.6 (6.5-8.0) g/dL Albumin 4.0 (3.5-5.0) g/dL Lipase 57 (8-78) U/L Independent Interpretation I performed an independent interpretation of an: Ultrasound (no DVT) Radiology Impression Discussion of test interpretation with radiology: I have reviewed the radiologist's reading. External Record Review External record reviewed: Inpatient record Prescription Management I considered prescription management with: Antibiotic Discharge Plan Discharge Clinical Impression: Acute venous stasis dermatitis Cellulitis Qualifiers: Site of cellulitis: extremity Site of cellulitis of extremity: lower extremity Laterality: right Qualified Code(s): L03.115 - Cellulitis of right lower limb Patient Disposition: Home, Self-Care Instructions: Cellulitis (ED), Venous Insufficiency (DC) Additional Instructions: wear compression stockings - no blood clot, return for fevers, vomiting, confusion, increased redness. complete the antibiotics and topical therapy for 1 week then use steroids starting 5 days after completion of antibiotics. please call our wound care center. you are on a cancellation list for vascular surgery as well. Prescriptions: New cephalexin 500 mg capsule 500 mg PO QID 7 Days Qty: 28 0RF mupirocin 2 % ointment 1 appl topical BID 7 Days Qty: 15 0RF betamethasone dipropionate 0.05 % cream 1 appl topical DAILY 7 Days Qty: 45 0RF (DME) compr.stocking,knee,long,large Misc See Rx Instructions .Route Qty: 24 0RF Rx Instructions: As directed No Action atorvastatin 80 mg tablet 80 mg PO BEDTIME carvedilol 25 mg tablet 50 mg PO BID isosorbide mononitrate 30 mg tablet extended release 24 hr 30 mg PO DAILY aspirin 81 mg tablet,delayed release (DR/EC) 81 mg PO DAILY doxazosin 4 mg tablet 4 mg PO DAILY fluticasone propionate 50 mcg/actuation spray,suspension 1 spray intranasal BID metformin 500 mg tablet extended release 24 hr 1,000 mg PO BID olmesartan-hydrochlorothiazide 40-25 mg tablet 1 tab PO DAILY bupropion HCl 150 mg tablet extended release 24 hr 150 mg PO DAILY fenofibrate 160 mg tablet 160 mg PO DAILY insulin degludec [Tresiba FlexTouch U-100] 100 unit/mL (3 mL) insulin pen 75 unit subcut BID Farxiga 10 mg tablet 10 mg PO DAILY Trulicity 3 mg/0.5 mL pen injector 3 mg subcut MO gabapentin 300 mg capsule 300 mg PO TID olmesartan 20 mg tablet 20 mg PO DAILY bupropion HCl 300 mg tablet extended release 24 hr 300 mg PO DAILY levofloxacin 750 mg tablet 750 mg PO DAILY Qty: 7 0RF clindamycin HCl 300 mg capsule 300 mg PO Q6H Qty: 28 0RF prednisone 10 mg tablet See Taper PO DIRECTED Qty: 20 0RF Taper: Prednisone 40 mg daily for 2 Days and 0 Hour 30 mg daily for 2 Days and 0 Hour 20 mg daily for 2 Days and 0 Hour 10 mg daily for 2 Days and 0 Hour Rx Instructions: see taper instructions Referrals: Tong Coe MD [Physician] - 06/04/23 10:30 am (Vascular appointment has been arranged for you on 06/04/23 at 1030am. If you are unable to make this appointment, please call the office to reschedule. You are also on their cancellation list. If they have an appointment open up sooner they will call you. ) Angie Christensen MD [Physician] - (call to schedule appointment) Interventions: ED Discharge Assessment Last Done: 04/17/23 15:56 Discharge Date/Time: 04/17/23 15:59
[2023-04-17 13:39] VITALS: BP 119/62; PULSE 76; RESP 20; O2SAT 96
[2023-04-17 13:58] LABS: C Reactive Protein 0.19 mg/dL (< or = 0.50)
[2023-04-17 14:24] LABS: Erythrocyte Sedimentation Rate 8 MM/HR (0-15)
[2023-04-17] MEDS: cefTRIAXone sodium 1 GM, Lidocaine HCl 1 % MPF 2.1 ML IM (15:35)
[2023-04-17 15:52] VITALS: BP 156/89; PULSE 75; RESP 19; O2SAT 96
== END 2023-04-17 15:59 | disposition home or self-care (01) ==
PROVIDERS: Emergency Provider Emergency Medicine; PCP Family Medicine
DX: L03.115 Cellulitis of right lower limb (principal); I87.2 Venous insufficiency (chronic) (peripheral); R60.0 Localized edema; Z79.899 Other long term (current) drug therapy
CPT/HCPCS: 36415; 80048; 80076; 83690; 85025; 85652; 86140; 87040; 93970; 96372; 99284; J0696

== ENCOUNTER → 2023-06-04 10:09 | Outpatient (BNVA) | payer OTHER, SELFPAY | PROVIDERS: PCP Family Medicine; Visit Provider Surgery Vascular Surgery ==

== ENCOUNTER 2023-06-13 08:26 | Outpatient (REF) | payer OTHER, SELFPAY ==
--- NOTE | ~2023-06-13 | US_ITS ---
EXAMINATION: US VENOUS BILATERAL LOWER EXTREMITIES (REFLUX EXAM) CLINICAL INDICATION: Leg pain and varicose veins. COMPARISON: None TECHNIQUE: Color flow triplex imaging and compression Doppler was performed to evaluate both the deep and the superficial systems bilaterally. To evaluate the superficial system, the examination was performed in the upright position. Color-flow Doppler ultrasound and compression ultrasound were utilized. In addition, maneuvers were utilized to demonstrate reflux. FINDINGS: 1. DEEP VENOUS ULTRASOUND OF THE RIGHT LOWER EXTREMITY: Respiratory variation, normal compression and augmented flow are noted in the right common femoral vein as well as the right popliteal vein and there is no evidence of deep venous thrombosis at these locations. There is no evidence of reflux in the deep system in either the common femoral vein or the popliteal vein. There is no evidence of a Hook's cyst. 2. SUPERFICIAL ULTRASOUND WITH DOPPLER OF RIGHT LOWER EXTREMITY: The right great saphenous vein at the saphenofemoral junction measures 7 mm, at the proximal thigh 6 mm, at the mid thigh 5 mm, above the knee 4 mm, at the knee 4 mm, [id number] 3 mm, midcalf 3 mm and at the ankle measures 2 mm. There is segmental reflux of greater than 3 seconds in the mid calf. Duplicated Right Great Saphenous Vein: None The right small saphenous vein measures 3 mm and shows no reflux. Accessory Vein of Giacomini: None Incompetent Perforators: None Varices Present: None 3. DEEP VENOUS ULTRASOUND OF THE LEFT LOWER EXTREMITY: Respiratory variation, normal compression and augmented flow are noted in the left common femoral vein as well as the left popliteal vein and there is no evidence of deep venous thrombosis at these locations. There is no evidence of reflux in the deep system in either the common femoral vein or the popliteal vein. There is no evidence of a Hook's cyst. 4. SUPERFICIAL ULTRASOUND WITH DOPPLER OF LEFT LOWER EXTREMITY: Left great saphenous vein at the saphenofemoral junction measures 9 mm, at the proximal thigh 6 mm, at the mid thigh 3 mm, above the knee 4 mm, at the knee 3 mm, [id number] 3 mm, midcalf 3 mm and at the ankle measures 3 mm. Segmental reflux is noted from the level of the knee down to the mid calf with reflux times of 3.4 seconds. Duplicated Left Great Saphenous Vein: None The left small saphenous vein measures 3 mm and shows no reflux. Accessory Vein of Giacomini: None Incompetent Perforators: None. Varices Present: None US/US venous duplex LE BI IMPRESSION: 1. No evidence of reflux or thrombus in the common femoral veins or popliteal veins bilaterally. 2. The saphenous systems are competent bilaterally.
== END 2023-06-13 08:27 | disposition home or self-care (01) ==
LOC: HO.US 08:26
PROVIDERS: PCP Family Medicine; Visit Provider Surgery Vascular Surgery
DX: I83.893 Varicose veins of bilateral lower extremities with other complications (principal)
CPT/HCPCS: 93970

== ENCOUNTER 2023-06-27 08:58 | Outpatient (AMB) | payer OTHER, SELFPAY ==
--- NOTE | 2023-06-27 09:00 | MHC.OFFVIS ---
Intake Vital Signs 06/27/23 09:04 Height 6 ft Weight 270 lb BMI 36.6 Intake Visit Reasons: MILLER ROD MILL/PVD s/p US 06/13/2023 Intake Note: MILLER ROD MILL here for PVD s/p 06/13/23 pt states that he has swelling and discomfort he also gets bruising and redness in both legs. He states that it has been going on for about 4 months he uses compression stockings and he s[ays they do help a little Allergies amoxicillin [Augmentin] Allergy (Unknown, Verified 06/27/23 09:05) Unknown clavulanic acid [Augmentin] Allergy (Unknown, Verified 06/27/23 09:05) Unknown HPI MILLER ROD MILL/PVD s/p US 06/13/2023 HPI Details Very pleasant 58-year-old gentle patient presents for painful varicose veins. Complaints include pain over varicosities, swelling of lower extremities, cramping, fatigue, and heaviness of the lower extremities. In addition he had recurrent bouts of cellulitis of the right lower extremity. He actually presented to the emergency room for this. It has been affecting there daily activities including walking. It is noted more so in right leg. Patient denies any previous venous surgery or injections. Patient denies any history of DVT/ PE. Patient denies any history of phlebitis. Trial of compression includes - [id number] They now present for vascular evaluation regarding their varicose veins. [facility] Medical History SARAH (obstructive sleep apnea) High triglycerides High cholesterol HTN (hypertension) Heart disease Diabetes Sleep apnea Surgical History S/P reconstruction of ligament of knee joint H/O heart artery stent Social History Household Members: Spouse Housing: House Do you presently have visiting nurse or other home services: No Alcohol intake: never Patient Tobacco Use Status: Never used Tobacco Advance Directives Date on File: 03/12/23 service: No Review of Systems Const Reports as per HPI ENT Reports no additional complaints Card Denies chest pain, Denies chest pain at rest and Denies chest pain with activity Resp Denies chest congestion and Denies cough GI Reports no additional complaints Musc Details: pain over varicosities, aching of lower extremities, swelling, cramping, heaviness and tiredness, itching Denies abnormal gait Skin/Breast Reports pruritus and Denies wounds Neuro Reports no additional complaints and Denies abnormal gait Psych Denies no additional complaints Physical Exam Vital Signs: BMI result Body Mass Index 36.6 Const General: cooperative, healthy appearing and comfortable Orientation/consciousness: oriented to person, oriented to place and oriented to time Neck Carotids: no bruits Chest Chest palpation & inspection: normal inspection of the chest and normal palpation of entire chest wall Resp Effort & Inspection: normal respiratory effort and able to speak in complete sentences Cardio Rate: regular rate Heart sounds: S1 normal heart sound present and S2 normal heart sound present Peripheral pulses: Peripheral pulses 2+ throughout GI Inspection: Yes normal to inspection Skin Other: +2 edema, large rope-like varicosities greater than 4 mm CEAP Classification C4 - skin color changes Ep - Etiology Primary As - superficial veins P - reflux General skin exam: dry skin Neuro General: oriented to person, oriented to place and oriented to time Extrem Right lower extremity: full ROM, normal capillary refill and edema Left lower extremity: full ROM, normal capillary refill and edema Psych Mental Status: mental status grossly normal Results Reviewed Results Reviewed: Brief summary of venous insufficiency testing is as follows: right great saphenous vein: Positive right small saphenous vein: negative right accessory vein: none present left great saphenous vein: Positive left small saphenous vein: negative left accessory vein: none present Please note there is no evidence of any venous aneurysms or significant tortuosity Assessment & Plan Assessment & Plan (1) Varicose veins of right lower extremity with inflammation: Code(s): I83.11 - Varicose veins of right lower extremity with inflammation Plan: This patient has varicose veins with inflammation. They continue to be a source of discomfort for the patient. The patient has tried conservative treatment with compression, leg elevation and exercise program for over 3 months time. They have been compliant with all treatment. This has provided minimal relief for the patient. I do not anticipate this course of treatment will alter the underlying etiology. The patient has been scheduled for lower extremity venous treatment inclusive of --- right great saphenous vein Cyanoacralate ablation. Risks, benefits, and complications of this procedure has been discussed in detail with the patient including but not limited to bleeding, infection, and the development of a DVT. The patient has demonstrated a clear understanding and has consented. We will schedule the patient as soon as possible. Thank you for allowing us to participate in this patient's care. If there are any questions or concerns please do not hesitate to contact us. Coding Level of Care Code New Pt Level 4 (72775) Diagnoses Varicose veins of right lower extremity with inflammation I83.11
[2023-06-27 09:04] VITALS: BMI 36.6
== END 2023-06-27 09:51 | disposition home or self-care (01) ==
PROVIDERS: PCP Family Medicine; Visit Provider Surgery Vascular Surgery
DX: I83.11 Varicose veins of right lower extremity with inflammation (principal)
CPT/HCPCS: 99204

== ENCOUNTER → 2023-06-27 08:58 | Outpatient (BNVA) | payer OTHER, SELFPAY | PROVIDERS: PCP Family Medicine; Visit Provider Surgery Vascular Surgery ==

== ENCOUNTER 2023-07-05 09:16 | Outpatient (AMB) | payer OTHER, SELFPAY ==
[2023-07-05 09:59] VITALS: BMI 36.6
--- NOTE | 2023-07-05 09:59 | A.OFFVIS_ITS ---
Intake Vital Signs 07/05/23 09:59 Height 6 ft Weight 270 lb BMI 36.6 Intake Visit Reasons: Right Leg Venaseal Accompanied by: Self / Same As Patient Allergies amoxicillin [Augmentin] Allergy (Unknown, Verified 07/05/23 10:04) Unknown clavulanic acid [Augmentin] Allergy (Unknown, Verified 07/05/23 10:04) Unknown FOR[facility]LY [facility], [facility] Medical History SARAH (obstructive sleep apnea) High triglycerides High cholesterol HTN (hypertension) Heart disease Diabetes Sleep apnea Surgical History S/P reconstruction of ligament of knee joint H/O heart artery stent Social History Household Members: Spouse Housing: House Do you presently have visiting nurse or other home services: No Alcohol intake: never Patient Tobacco Use Status: Never used Tobacco Advance Directives Date on File: 03/12/23 service: No Physical Exam Vital Signs: BMI result Body Mass Index 36.6 Office Procedures Vascular Office Procedure Details Details: Diagnosis: Right Leg varicose veins with inflammation Procedure: Endovenous Ablation of the right Great Saphenous Vein with VenaSeal Closure System Anesthesia: Local infiltration 5 cc, Estimated Blood Loss: min Specimen: none Duplex ultrasound was used to map out the insufficient saphenous vein, and access was determined and marked on the overlying skin. The depth and diameter of the vein(s) to be treated was documented. The patient was placed supine on the procedure table and the leg was prepped and draped using sterile technique. Ultasound guidance was again used to localize the access site. 1% lidocaine was injected as a local anesthetic in the subcutaneous tissues at the target location in the GSV in the lower leg. Using ultrasound guidance, access was gained at this location with the 19 gauge thin walled access needle and followed by introduction of a short guidewire, location confirmed with ultrasound. A small, 3 mm incision was made at the access site to allow for introduction and placement of the 7 Fr x7cm introducer/dilator. The dilator and guidewire were removed. The 0.035 guidewire from the VenaSeal kit was then introduced and positioned at the saphenofemoral junction using ultrasound guidance. The 80 cm 7 Fr introducer sheath/dilator was positioned 5cm from the saphenofemoral neo ction. The guidewire and dilator were removed, and the remaining sheath was flushed with sterile saline, with the syringe remaining in place prior to the next steps. The cyanoacrylate adhesive was precisely primed into the 5 F delivery catheter and this catheter/syringe combination was attached within the dispenser gun. This assembly was introduced through the 7F sheath and positioned 5 cm caudal of the saphenofemoral junction under ultrasound guidance. The steps from the IFU were followed for dispensing amounts, locations and compression times, 2 aliquots proximally with 3 minutes of compression, and 1 aliquot every 3 cm distally with 30 sec of compression along the course of the vessel. Following the last injection and compression sequence, the catheter and introducer sheath were pulled out from the access site. Hemostasis was achieved with manual compression and an adhesive bandage was applied to the incision. Ultrasound confirmed complete coaptation and closure of the treated segments of the GSV, and the absence of any DVT at the saphenofemoral junction. Treatment time was approximately 7 minutes and the vein length treated was 35 cm. The drapes were removed and the patient cleaned and prepared for discharge. Post op ultrasound check is scheduled for 48-72 hours and the patient was given written post-op instructions. 92952 - Endoven Ther Chem Adhes 1st All charges added?: Procedure code (CPT) selection complete Assessment & Plan Assessment & Plan (1) Varicose veins of right lower extremity with inflammation: Code(s): I83.11 - Varicose veins of right lower extremity with inflammation Plan: See op note Coding Level of Care Code Procedure Only Diagnoses Varicose veins of right lower extremity with inflammation I83.11 CPT Codes Details - Vascular 3: 71829 - Endoven Ther Chem Adhes 1st ([id number])
== END 2023-07-05 12:25 | disposition home or self-care (01) ==
PROVIDERS: PCP Family Medicine; Visit Provider Surgery Vascular Surgery
DX: I83.11 Varicose veins of right lower extremity with inflammation (principal)
CPT/HCPCS: 36482

== ENCOUNTER → 2023-07-05 09:16 | Outpatient (BNVA) | payer OTHER, SELFPAY | PROVIDERS: PCP Family Medicine; Visit Provider Surgery Vascular Surgery | DX: I83.11 Varicose veins of right lower extremity with inflammation (principal) | CPT/HCPCS: 36482 ==

== ENCOUNTER 2023-07-09 12:37 | Outpatient (REF) | payer OTHER, SELFPAY ==
--- NOTE | ~2023-07-09 | US_ITS ---
EXAMINATION: US VENOUS ULTRASOUND WITH DOPPLER LOWER EXTREMITY, RIGHT CLINICAL INFORMATION: Status post post venous healed procedure. Pain in right leg. Rule out DVT COMPARISON: None available. TECHNIQUE: Ultrasound of the deep veins is performed from the hip to the calf with compression sonography and color and pulse Doppler assessment. Spectral analysis with color-flow imaging is performed. FINDINGS: There is thrombus visualized in the greater saphenous vein approximately 2.89 cm from the femoral venous junction. Otherwise there is normal venous compression and respiratory variation and augmented flow. The visualized common femoral vein, superficial femoral vein, profunda femoral vein, popliteal vein, and the trifurcation region shows no evidence of deep venous thrombosis. There is no significant popliteal fossa cyst. . If the patient's symptoms persist, followup ultrasound in 5 days 7 days might be of value to exclude proximal propagation from a non-visualized calf vein. US/US venous duplex LE RT IMPRESSION: 1. No DVT demonstrated in the right lower extremity. 2. There is thrombus visualized in the greater saphenous vein approximately 2.89 cm from the femoral venous junction.
== END 2023-07-09 12:38 | disposition home or self-care (01) ==
LOC: HO.HMGCX 12:37
PROVIDERS: PCP Family Medicine; Visit Provider Surgery Vascular Surgery
DX: M79.604 Pain in right leg (principal)
CPT/HCPCS: 93971

== ENCOUNTER → 2023-07-18 12:55 | Outpatient (BNVA) | payer OTHER, SELFPAY | PROVIDERS: PCP Family Medicine; Visit Provider Surgery Vascular Surgery ==

== ENCOUNTER 2023-07-30 09:05 | Outpatient (AMB) | payer OTHER, SELFPAY ==
[2023-07-30 09:06] VITALS: BP 138/76; PULSE 100; O2SAT 97; BMI 36.6
--- NOTE | 2023-07-30 09:06 | A.OFFVIS_ITS ---
Intake Vital Signs 07/30/23 09:06 Height 6 ft Weight 270 lb BMI 36.6 BP 138/76 Blood Pressure Location Rt brachial Position Sitting Pulse 100 Pulse Source Pulse Oximeter Pulse Oximetry (%) 97 Oxygen Delivery Method Room Air Intake Visit Reasons: Right leg venaseal follow up Intake Note: Pt presents to the office today for a right leg venaseal follow up. Pt states his right leg is still swelling and gets sore occasionally. Allergies amoxicillin [Augmentin] Allergy (Unknown, Verified 07/30/23 09:08) Unknown clavulanic acid [Augmentin] Allergy (Unknown, Verified 07/30/23 09:08) Unknown HPI Right leg venaseal follow up HPI Details Very pleasant 58-year-old gentleman underwent right great saphenous vein ablation. Appears to be doing relatively well with that. He had recurrent bouts of cellulitis and it appears to have improved. He now presents for evaluation of the left lower extremity which does seem to be a source of discomfort for him as well. He has no interval issues. Of note postprocedure ultrasound was negative for DVT PFSH Medical History SARAH (obstructive sleep apnea) High triglycerides High cholesterol HTN (hypertension) Heart disease Diabetes Sleep apnea Surgical History S/P reconstruction of ligament of knee joint H/O heart artery stent Social History Household Members: Spouse Housing: House Do you presently have visiting nurse or other home services: No Alcohol intake: never Patient Tobacco Use Status: Never used Tobacco Advance Directives Date on File: 03/12/23 service: No Review of Systems Const Reports as per HPI ENT Reports no additional complaints Card Denies chest pain, Denies chest pain at rest and Denies chest pain with activity Resp Denies chest congestion and Denies cough GI Reports no additional complaints Musc Details: pain over varicosities, aching of lower extremities, swelling, cramping, heaviness and tiredness, itching Denies abnormal gait Skin/Breast Reports pruritus and Denies wounds Neuro Reports no additional complaints and Denies abnormal gait Psych Denies no additional complaints Physical Exam Vital Signs: Last Vital Signs Pulse 100 07/30/23 09:06 BP 138/76 07/30/23 09:06 Pulse Ox 97 07/30/23 09:06 Oxygen Delivery Method Room Air 07/30/23 09:06 BMI result Body Mass Index 36.6 Const General: cooperative, healthy appearing and comfortable Orientation/consciousness: oriented to person, oriented to place and oriented to time Neck Carotids: no bruits Chest Chest palpation & inspection: normal inspection of the chest and normal pal pation of entire chest wall Resp Effort & Inspection: normal respiratory effort and able to speak in complete sentences Cardio Rate: regular rate Heart sounds: S1 normal heart sound present and S2 normal heart sound present Peripheral pulses: Peripheral pulses 2+ throughout GI Inspection: Yes normal to inspection Skin Other: +2 edema, left greater than right CEAP Classification C4 - skin color changes Ep - Etiology Primary As - superficial veins P - reflux General skin exam: dry skin Neuro General: oriented to person, oriented to place and oriented to time Extrem Right lower extremity: full ROM, normal capillary refill and edema Left lower extremity: full ROM, normal capillary refill and edema Psych Mental Status: mental status grossly normal Results Reviewed Results Reviewed: Brief summary of venous insufficiency testing is as follows: right great saphenous vein: Ablated right small saphenous vein: negative right accessory vein: none present left great saphenous vein: Positive left small saphenous vein: negative left accessory vein: none present Please note there is no evidence of any venous aneurysms or significant tortuosity Assessment & Plan Assessment & Plan (1) Varicose veins of right lower extremity with inflammation: Code(s): I83.11 - Varicose veins of right lower extremity with inflammation Plan: In short patient has done well with right lower extremity ablation. Edema appears to be decreasing. He has had no recurrent bouts of cellulitis since the ablation. Will treat left lower extremity. (2) Varicose veins of left lower extremity with inflammation: Code(s): I83.12 - Varicose veins of left lower extremity with inflammation Plan: This patient has varicose veins with inflammation. They continue to be a source of discomfort for the patient. The patient has tried conservative treatment with compression, leg elevation and exercise program for over 3 months time. They have been compliant with all treatment. This has provided minimal relief for the patient. I do not anticipate this course of treatment will alter the underlying etiology. The patient has been scheduled for lower extremity venous treatment inclusive of --- left lower extremity radiofrequency ablation. Risks, benefits, and complications of this procedure has been discussed in detail with the patient including but not limited to bleeding, infection, and the development of a DVT. The patient has demonstrated a clear understanding and has consented. We will schedule the patient as soon as possible. Thank you for allowing us to participate in this patient's care. If there are any questions or concerns please do not hesitate to contact us. Coding Level of Care Code Est Pt Level 4 (81616) Diagnoses Varicose veins of right lower extremity with inflammation I83.11 Varicose veins of left lower extremity with inflammation I83.12
== END 2023-07-30 09:28 | disposition home or self-care (01) ==
PROVIDERS: PCP Family Medicine; Visit Provider Surgery Vascular Surgery
DX: I83.11 Varicose veins of right lower extremity with inflammation (principal); I83.12 Varicose veins of left lower extremity with inflammation
CPT/HCPCS: 99214

== ENCOUNTER → 2023-07-30 09:05 | Outpatient (BNVA) | payer OTHER, SELFPAY | PROVIDERS: PCP Family Medicine; Visit Provider Surgery Vascular Surgery ==

== ENCOUNTER 2023-08-23 07:22 | Outpatient (AMB) | payer OTHER, SELFPAY ==
[2023-08-23 07:40] VITALS: BMI 36.6
--- NOTE | 2023-08-23 07:40 | A.OFFVIS_ITS ---
Intake Vital Signs 08/23/23 07:40 Height 6 ft Weight 270 lb BMI 36.6 Intake Visit Reasons: Left GSV RFA Allergies amoxicillin [Augmentin] Allergy (Unknown, Verified 08/23/23 07:41) Unknown clavulanic acid [Augmentin] Allergy (Unknown, Verified 08/23/23 07:41) Unknown FOR[facility]LY [facility] Medical History SARAH (obstructive sleep apnea) High triglycerides High cholesterol HTN (hypertension) Heart disease Diabetes Sleep apnea Surgical History S/P reconstruction of ligament of knee joint H/O heart artery stent Social History Household Members: Spouse Housing: House Do you presently have visiting nurse or other home services: No Alcohol intake: never Patient Tobacco Use Status: Never used Tobacco Advance Directives Date on File: 03/12/23 service: No Physical Exam Vital Signs: BMI result Body Mass Index 36.6 Office Procedures Vascular Office Procedure Details Details: Diagnosis: Varicose veins with inflammation of left leg Procedure: Endovenous radiofrequency ablation of the left great saphenous vein(s) of the lower extremity. Anesthesia: Local infiltration 5 cc, Tumescent 250 cc. Estimated Blood Loss: Minimal Specimen: Varicose veins The patient was transferred to the procedure suite and the insufficient saphenous vein was mapped by ultrasound and diagrammed on the overlying skin. The depth and diameter of the vein(s) to be treated was documented. The varicose tributary veins and suitable access sites were identified and mapped as well. The patient was then positioned supine on the procedure table. The affected limb was prepped and draped in the usual sterile fashion. The RF catheter was placed on the sterile field, flushed and wiped down, prepared, and connected by a sterile cable. The patient was placed in reverse- Trendelenburg position and local anesthesia was instilled in the skin overlying the access site. A skin incision was made overlying the identified and mapped great saphenous vein entry site. The vein was accessed using ultrasound guidance and the Seldinger technique, a guide wire was introduced through the needle, which was then exchanged over the guide wire for a 6F sheath, which was secured in place. The guide wire was removed and the sheath was flushed. The RF catheter was placed into the vein through the sheath and preferentially, imaging was used to place the catheter tip just inferior to the superficial epigastric vein to preserve normal physiological flow in that vein. Additionally, it was confirmed by ultrasound guidance that the catheter tip was also placed a minimum of 1.5cm distal to the saphenofemoral junction. After the RF catheter position was verified by ultrasound, tumescent anesthesia was infiltrated, under ultrasound guidance, precisely into the perivenous compartment along the entire length of vein from the entry site to the saphenofemoral junction until a halo of fluid was noted around the vein. After RF catheter position was again confirmed with ultrasound imaging, and under direct external compression along the length of the heating element, RF energy was applied. The vein was segmentally ablated by heating a 8 cm segment and then indexing the catheter forward by 7.5 cm until the treatment length is completed. Device temperature was maintained at 120 plus or minus 5 degrees C with an initial power level of 40W dropping to below 20W for each treatment. Total vein length treated 40 cm Total cycles of RF 6. Repeat ultrasound of the saphenous vein was performed, confirming successful treatment. The catheter and sheath were withdrawn and hemostasis established with direct pressure. After assuring hemostasis, the skin incision over the saphenous vein was closed with a bandage and a compression wrap, and/ or graduated compression stocking was applied from the level of the foot to the most proximal level of the thigh. 13757 - Endovenous RF, 1st Vein All charges added?: Procedure code (CPT) selection complete Assessment & Plan Assessment & Plan (1) Varicose veins of left lower extremity with inflammation: Comment: 08/23/2023 - left great saphenous vein radiofrequency ablation Code(s): I83.12 - Varicose veins of left lower extremity with inflammation Plan: See op note Orders: Orders US venous duplex LE LT 08/26/23 M79.605 - Pain in left leg Coding Level of Care Code Procedure Only Diagnoses Varicose veins of left lower extremity with inflammation I83.12 CPT Codes Details - Vascular 1: 85155 - Endovenous RF, 1st Vein ([id number])
== END 2023-08-23 08:34 | disposition home or self-care (01) ==
PROVIDERS: PCP Family Medicine; Visit Provider Surgery Vascular Surgery
DX: I83.12 Varicose veins of left lower extremity with inflammation (principal)
CPT/HCPCS: 36475

== ENCOUNTER → 2023-08-23 07:22 | Outpatient (BNVA) | payer OTHER, SELFPAY | PROVIDERS: PCP Family Medicine; Visit Provider Surgery Vascular Surgery | DX: I83.12 Varicose veins of left lower extremity with inflammation (principal) | CPT/HCPCS: 36475 ==

== ENCOUNTER 2023-08-26 09:42 | Outpatient (REF) | payer OTHER, SELFPAY ==
--- NOTE | ~2023-08-26 | US_ITS ---
EXAMINATION: TRIPLEX SCANNING OF LEFT LOWER EXTREMITY; SUPERFICIAL ULTRASOUND WITH DOPPLER OF LEFT LOWER EXTREMITY CLINICAL INFORMATION: Status post RF ablation of the left great saphenous vein. Originally performed on 08/23/2023. COMPARISON: Ultrasound from 06/13/2023. TECHNIQUE: Color flow triplex imaging and compression Doppler were performed as well as superficial ultrasound with Doppler. FINDINGS: TRIPLEX SCANNING OF LEFT LOWER EXTREMITY: Respiratory variation, normal compression and augmented flow are noted throughout the lower extremity. The visualized common femoral vein, femoral vein, profunda femoral vein, popliteal vein and the calf veins show no evidence of deep venous thrombosis. There is no evidence of Hook's cyst. SUPERFICIAL ULTRASOUND WITH DOPPLER OF LEFT LOWER EXTREMITY: The left great saphenous vein is occluded from the access site to 3.4 cm before the sapheno-femoral junction. There is no extension of thrombus into the deep system. US/US venous duplex LE LT IMPRESSION: 1. Normal triplex scan of the left without evidence of deep venous thrombosis. 2. Excellent appearance status post ablation of the left great saphenous vein.
== END 2023-08-26 09:43 | disposition home or self-care (01) ==
LOC: HO.HMGCX 09:42
PROVIDERS: PCP Family Medicine; Visit Provider Surgery Vascular Surgery
DX: M79.605 Pain in left leg (principal)
CPT/HCPCS: 93971

== ENCOUNTER 2023-09-10 08:52 | Outpatient (AMB) | payer OTHER, SELFPAY ==
[2023-09-10 08:57] VITALS: BMI 36.6
--- NOTE | 2023-09-10 08:57 | A.OFFVIS_ITS ---
Intake Vital Signs 09/10/23 08:57 Height 6 ft Weight 270 lb BMI 36.6 Intake Visit Reasons: Follow Up Left Leg RFA Intake Note: follo wup Left LE RFA 08/23/23 and Hx of Right GSV Venaseal 07/18/2023. Pt states that Left LE still has swelling and states that he has redness and pain over treated area. Painful to touch and sore even when not touching. Accompanied by: Self / Same As Patient Allergies amoxicillin [Augmentin] Allergy (Unknown, Verified 09/10/23 09:00) Unknown clavulanic acid [Augmentin] Allergy (Unknown, Verified 09/10/23 09:00) Unknown HPI Follow Up Left Leg RFA HPI Details Very pleasant 58-year-old gentleman presents for follow-up status post left lower extremity Radiofrequency ablation. He reports of very mild decrease in swelling. Continues to have swelling of both lower extremities. In addition he has this nonhealing right pretibial ulcer. He had originally presented to us with recurrent bouts of cellulitis which appears to have subsided. Now presents for postprocedure follow-up. Of note his legs continue be significantly edematous. [facility] Medical History SARAH (obstructive sleep apnea) High triglycerides High cholesterol HTN (hypertension) Heart disease Diabetes Sleep apnea Surgical History S/P reconstruction of ligament of knee joint H/O heart artery stent Social History Household Members: Spouse Housing: House Do you presently have visiting nurse or other home services: No Alcohol intake: never Patient Tobacco Use Status: Never used Tobacco Advance Directives Date on File: 03/12/23 service: No Review of Systems Const Reports as per HPI ENT Reports no additional complaints Card Denies chest pain, Denies chest pain at rest and Denies chest pain with activity Resp Denies chest congestion and Denies cough GI Reports no additional complaints Musc Details: pain over varicosities, aching of lower extremities, swelling, cramping, heaviness and tiredness, itching Denies abnormal gait Skin/Breast Reports pruritus and Denies wounds Neuro Reports no additional complaints and Denies abnormal gait Psych Denies no additional complaints Physical Exam Vital Signs: BMI result Body Mass Index 36.6 Const General: cooperative, healthy appearing and comfortable Orientation/consciousness: oriented to person, oriented to place and oriented to time Neck Carotids: no bruits Chest Chest palpation & inspection: normal inspection of the chest and normal palpation of entire chest wall Resp Effort & Inspection: normal respiratory effort and able to speak in complete sentences Cardio Rate: regular rate Heart sounds: S1 normal heart sound present and S2 normal heart sound present Peripheral pulses: Peripheral pulses 2+ throughout GI Inspection: Yes normal to inspection Skin Other: +2 edema, CEAP Classification C6 - active ulceration Ep - Etiology Primary As - superficial veins P - reflux General skin exam: dry skin Neuro General: oriented to person, oriented to place and oriented to time Extrem Other: Right in cm: Thigh 55 Knee 44 Calf 45 Ankle 32 Left in cm: Thigh 57 Knee 44 Calf 45 Ankle 29 Hip/abdomen 132 Right lower extremity: full ROM, normal capillary refill and edema Left lower extremity: full ROM, normal capillary refill and edema Psych Mental Status: mental status grossly normal Assessment & Plan Assessment & Plan (1) Varicose veins of left lower extremity with inflammation: Comment: 08/23/2023 - left great saphenous vein radiofrequency ablation Code(s): I83.12 - Varicose veins of left lower extremity with inflammation Plan: Patient has done well with venous ablation. He continues to have lower extremity swelling. We will treat for lymphedema. (2) Lymphedema: Code(s): I89.0 - Lymphedema, not elsewhere classified Plan: In short the patient has late on sent lymphedema. The patient has been on conservative treatment for at least 3 months with minimal relief. Patient has tried 30 mm of mercury compression garments, elevation, exercise healthy diet and doing manual says self MLD to the best of their ability for over 4 weeks but with no significant relief. She has been compliant with the program but has provided minimal relief. In addition on physical we are noticing hyperpigmentation, lymphorrhea, and hyperplasia. It appears that she has stage 2 lymphedema. Patient has completed multiple forms of conservative therapy yet significant symptoms remain. Patient requires the use of a pneumatic compression device which we will assist in trying to have the patient obtain them. A pneumatic compression device will help reduce swelling and other lymphedema comorbidities. Thank you for allowing us to assist in this patient's care. Coding Level of Care Code Est Pt Level 3 (78122) Diagnoses Varicose veins of left lower extremity with inflammation I83.12 Lymphedema I89.0
== END 2023-09-10 10:00 | disposition home or self-care (01) ==
PROVIDERS: PCP Family Medicine; Visit Provider Surgery Vascular Surgery
DX: I83.12 Varicose veins of left lower extremity with inflammation (principal); I89.0 Lymphedema, not elsewhere classified
CPT/HCPCS: 99213

== ENCOUNTER → 2023-09-10 08:52 | Outpatient (BNVA) | payer OTHER, SELFPAY | PROVIDERS: PCP Family Medicine; Visit Provider Surgery Vascular Surgery ==

== ENCOUNTER 2025-03-21 06:59 | Emergency (ER) | payer OTHER, SELFPAY ==
--- NOTE | ~2025-03-21 | US_ITS ---
CLINICAL HISTORY: r o DVT swelling Venous duplex ultrasound left lower extremity Comparison: US/SR - US LOWER EXTREMITY VEINS LIMITED FOLLOW UP LEFT - 08/26/2023 09:50 AM EST Findings: The visualized deep veins are fully compressible with normal Doppler color flow and spectral tracings. No popliteal cyst. IMPRESSION: 1. Negative for left lower extremity deep vein thrombosis. This document has been electronically signed by: Nguyễn Karimi MD on 03/21/2025 08:53:52
[2025-03-21 07:00] VITALS: BP 119/65; PULSE 85; RESP 16; TEMP 36.6; O2SAT 98; BMI 36.6
--- NOTE | 2025-03-21 07:07 | ED.GENADULT ---
HPI - General Adult General Chief complaint: General Medical Stated complaint: swollen leg Time Seen by Provider: 03/21/25 07:07 Source: patient Mode of arrival: ambulatory Limitations: no limitations History of Present Illness ED Provider: HPI narrative: 60-year-old male with a history of hypertension, CAD, IBS, sleep apnea and diabetes presenting with redness to the left lower extremity and itching for the past 2 3 days, he has a history of cellulitis/stasis dermatitis on the right lower extremity, no fevers or chills reported. Related Data Home Medications ?Medication ?Instructions ?Recorded ?Confirmed aspirin 81 mg tablet,delayed 81 mg PO DAILY 03/04/23 03/04/23 release atorvastatin 80 mg tablet 80 mg PO BEDTIME 03/04/23 03/04/23 bupropion HCl 150 mg 24 hr tablet, 150 mg PO DAILY 03/04/23 03/04/23 extended release bupropion HCl 300 mg 24 hr tablet, 300 mg PO DAILY 03/04/23 03/04/23 extended release carvedilol 25 mg tablet 50 mg PO BID 03/04/23 03/04/23 dapagliflozin propanediol 10 mg 10 mg PO DAILY 03/04/23 03/04/23 tablet (Farxiga) doxazosin 4 mg tablet 4 mg PO DAILY 03/04/23 03/04/23 dulaglutide 3 mg/0.5 mL 3 mg subcut MO 03/04/23 03/04/23 subcutaneous pen injector (Trulicity) fenofibrate 160 mg tablet 160 mg PO DAILY 03/04/23 03/04/23 fluticasone propionate 50 1 spray intranasal BID 03/04/23 03/04/23 mcg/actuation nasal spray,suspension gabapentin 300 mg capsule 300 mg PO TID 03/04/23 03/04/23 insulin degludec 100 unit/mL (3 75 unit subcut BID 03/04/23 03/04/23 mL) subcutaneous pen (Tresiba FlexTouch U-100 insulin) isosorbide mononitrate 30 mg 30 mg PO DAILY 03/04/23 03/04/23 tablet,extended release 24 hr metformin 500 mg tablet,extended 1,000 mg PO BID 03/04/23 03/04/23 release 24 hr olmesartan 40 1 tab PO DAILY 03/04/23 03/04/23 mg-hydrochlorothiazide 25 mg tablet Previous Rx's ?Medication ?Instructions ?Recorded levofloxacin 750 mg tablet 750 mg PO DAILY #7 tabs 03/11/23 prednisone 10 mg tablet See Taper PO DIRECTED #20 tabs 03/11/23 betamethasone dipropionate 0.05 % 1 appl topical DAILY 1 week #45 04/17/23 topical cream grams compr.stocking,knee,long,large #24 ea 04/17/23 mupirocin 2 % topical ointment 1 appl topical BID 7 days #15 grams 04/17/23 cephalexin 500 mg capsule 500 mg PO QID 7 days #28 caps 03/21/25 Allergies Allergy/AdvReac Type Severity Reaction Status Date / Time amoxicillin (Augmentin) Allergy Unknown Unknown Verified 03/21/25 07:04 clavulanic acid (Augmentin) Allergy Unknown Unknown Verified 03/21/25 07:04 Review of Systems Constitutional: Constitutional: Reports as per [facility] Past Medical History Medical History SARAH (obstructive sleep apnea) High triglycerides High cholesterol HTN (hypertension) Heart disease Diabetes Sleep apnea Surgical History S/P reconstruction of ligament of knee joint H/O heart artery stent Social History Social History Household Members: Spouse Housing: House Do you presently have visiting nurse or other home services: No Alcohol intake: former Patient Tobacco Use Status: Never used Tobacco Smoked in Last 30 Days: No Use of substances other than those prescribed or required for medical reasons: No Advance Directives Date on File: 03/12/23 Do you have a plan to hurt others: No Plan service: No Physical Exam ED Vital Signs: Vital Signs - 24 hr 03/21/25 07:00 Temperature 97.8 F Pulse Rate 85 Respiratory Rate 16 Blood Pressure 119/65 Pulse Oximetry 98 Oxygen Delivery Method Room Air BMI result Body Mass Index 36.6 Const Other: Gen: ?Overall well-appearing patient HEENT: PERRLA, EOMI, MMM, Neck: Supple, no LAD CV: RRR, no obvious murmurs appreciated Resp: ?No wheezing rales rhonchi no stridor moving air well Abd: ?Bowel sounds are present, no tenderness no rebound no rigidity MSK: FROM, strength 5/5 all extremities, slight swelling left lower extremity distal pulses intact, nonpitting Skin: Scattered petechiae and erythema of the calf of the left lower extremity Neuro: ?Alert and oriented x3, moving upper and lower extremities symmetrically, no obvious facial asymmetry noted Medical Decision Making Medical Decision Making [facility] Narrative: 7:16 AM 03/21/2025 (Dr. Shakir Yi): Patient evaluated with left lower extremity erythema and swelling, considerations for workup as below, he does have history of cellulitis and stasis dermatitis with prior admission and being managed in the past no oral antibiotics but this was 2 years ago, currently nonfebrile overall well-appearing, if DVT study negative anticipate discharging with oral antibiotics and follow up with PCP Differential Diagnosis Differential Diagnoses: The differential diagnosis associated with the presentation includes (DVT, arterial insufficiency, cellulitis, dermatitis, CHF) Admission/Observation Consideration of admission/observation: Escalation of care including admission/observation considered Lab Data [facility] Lab Attestation statement: I reviewed the patient's lab results. 03/21/25 07:21 03/21/25 07:21 Labs: Lab Results 03/21/25 Range/Units 07:21 WBC 10.5 (4.8-10.8) X10*3/uL RBC 4.50 L (4.60-5.80) X10*6/uL Hgb 12.9 L (14.0-18.0) g/dl Hct 38.4 L (42.0-52.0) % MCV 85.3 (80.0-98.0) fL MCH 28.7 (27.0-33.0) pg MCHC 33.6 (31.0-36.0) g/dl RDW 14.5 (11.0-16.0) % Plt Count 182 (160-400) X10*3/uL MPV 12.3 (9.4-12.4) fL Immature Gran % (Auto) 0.3 (0.0-0.4) % Neut % (Auto) 71.0 (45-73) % Lymph % (Auto) 15.0 L (20-40) % Dunn % (Auto) 11.1 H (2-11) % Eos % (Auto) 1.9 (0-4) % Baso % (Auto) 0.7 (0-2) % Lymph # (Auto) 1.6 (1.2-4.9) X10*3/uL Dunn # (Auto) 1.2 (0.1-1.2) X10*3/uL Eos # (Auto) 0.2 (0.0-0.4) X10*3/uL Baso # (Auto) 0.1 (0.0-0.2) X10*3/uL Abs Immat Gran (auto) 0.03 (0.00-0.03) X10*3/uL Absolute Neuts (auto) 7.5 (2.0-8.3) x10*3/uL Absolute Nucleated RBC 0.000 (0.0-0.012) X10*3/uL Nucleated RBC % (auto) 0.0 (0.0-0.2) /100WBC Sodium 147 H (135-145) mmol/L Potassium 3.3 (3.3-5.1) mmol/L Chloride 107 (96-108) mmol/L Carbon Dioxide 29 (22-29) mmol/L Anion Gap 14 (12-20) BUN 27 H (9-16) mg/dL Creatinine 1.14 (0.5-1.4) mg/dL Estim Creat Clear Calc 94.2 Estimated GFR > 60 Random Glucose 102 (60-115) mg/dL Calcium 9.6 (8.4-10.2) mg/dL Independent Interpretation I performed an independent interpretation of an: Ultrasound (Negative for DVT) Radiology Impression Discussion of test interpretation with radiology: I have reviewed the radiologist's reading. Discharge Plan Discharge Clinical Impression: Lymphedema, Venous stasis dermatitis of left lower extremity, Cellulitis of left anterior lower leg Patient Disposition: Home, Self-Care Additional Instructions: Please wear compression stockings, start antibiotics, ultrasound without any evidence for blood clots, blood work reassuring, you have had this presentation in the past this maybe cellulitis but this maybe just what is called stasis dermatitis this is from the fact that you veins and not working very well Follow up with the PCP early next week, spiking fevers redness going up past the knee come back to the ER Prescriptions: New cephalexin 500 mg capsule 500 mg PO QID 7 Days Qty: 28 0RF No Action atorvastatin 80 mg tablet 80 mg PO BEDTIME carvedilol 25 mg tablet 50 mg PO BID isosorbide mononitrate 30 mg tablet extended release 24 hr 30 mg PO DAILY aspirin 81 mg tablet,delayed release (DR/EC) 81 mg PO DAILY doxazosin 4 mg tablet 4 mg PO DAILY fluticasone propionate 50 mcg/actuation spray,suspension 1 spray intranasal BID metformin 500 mg tablet extended release 24 hr 1,000 mg PO BID olmesartan-hydrochlorothiazide 40-25 mg tablet 1 tab PO DAILY bupropion HCl 150 mg tablet extended release 24 hr 150 mg PO DAILY fenofibrate 160 mg tablet 160 mg PO DAILY insulin degludec [Tresiba FlexTouch U-100] 100 unit/mL (3 mL) insulin pen 75 unit subcut BID Farxiga 10 mg tablet 10 mg PO DAILY Trulicity 3 mg/0.5 mL pen injector 3 mg subcut MO gabapentin 300 mg capsule 300 mg PO TID bupropion HCl 300 mg tablet extended release 24 hr 300 mg PO DAILY levofloxacin 750 mg tablet 750 mg PO DAILY Qty: 7 0RF prednisone 10 mg tablet See Taper PO DIRECTED Qty: 20 0RF Taper: Prednisone 40 mg daily for 2 Days and 0 Hour 30 mg daily for 2 Days and 0 Hour 20 mg daily for 2 Days and 0 Hour 10 mg daily for 2 Days and 0 Hour Rx Instructions: see taper instructions mupirocin 2 % ointment 1 appl topical BID 7 Days Qty: 15 0RF betamethasone dipropionate 0.05 % cream 1 appl topical DAILY 7 Days Qty: 45 0RF (DME) compr.stocking,knee,long,large Misc See Rx Instructions .Route Qty: 24 0RF Rx Instructions: As directed Referrals: Alvin Gill MD [Primary Care Provider, Internal Medicine] - 1 week Clinical Impression: Lymphedema; Venous stasis dermatitis of left lower extremity Print Language: Slovak
[2025-03-21 07:25] LABS: MANUAL DIFF FLAG NO
[2025-03-21 07:42] LABS: Hematocrit 38.4 % (42.0-52.0); Hemoglobin 12.9 g/dl (14.0-18.0); Imm Gran Abs Auto 0.03 X10*3/uL (0.00-0.03); Imm Gran Pct Auto 0.3 % (0.0-0.4); Lymphocytes Absolute Auto 1.6 X10*3/uL (1.2-4.9); Mean Corpuscular HGB Conc 33.6 g/dl (31.0-36.0); Mean Corpuscular Hemoglobin 28.7 pg (27.0-33.0); Mean Corpuscular Volume 85.3 fL (80.0-98.0); NRBC Abs Auto 0.000 X10*3/uL (0.0-0.012); NRBC Pct Auto 0.0 /100WBC (0.0-0.2); Platelet Count 182 X10*3/uL (160-400); Red Blood Count 4.50 X10*6/uL (4.60-5.80); White Blood Count 10.5 X10*3/uL (4.8-10.8)
[2025-03-21 07:54] LABS: Anion Gap 14 (12-20); Blood Urea Nitrogen 27 mg/dL (9-16); Calcium 9.6 mg/dL (8.4-10.2); Carbon Dioxide 29 mmol/L (22-29); Chloride 107 mmol/L (96-108); Creatinine Clr Calc Pharmacy 94.2; Estimated Glomerular Filt Rate > 60; Potassium 3.3 mmol/L (3.3-5.1); Sodium 147 mmol/L (135-145)
--- OUTSIDE RECORDS SUMMARY | 2025-03-21 08:38 | XMS_ITS | Clinical Summary ---
Author Organization [facility] [address] Address [address] [place] [address] Phone Care Team Providers Care Bell Attendant Name Role Phone Alvin Gill MD Primary Care Provider [phone] Allergies Active Allergy Reactions Criticality Noted Date Comments Amlodipine 11/10/2024 lower extremity swelling Amoxicillin-Pot Clavulanate 08/12/19 25 Potassium Clavulanate Rash Low 06/01/2022 Medications aspirin 81 mg chewable tablet Chew 1 tablet (81 mg total). Active atorvastatin (LIPITOR) 80 mg tablet Take 1 tablet (80 mg total) by mouth. at bedtime. Active buPROPion XL (WELLBUTRIN XL) 300 mg 24 hr tablet Active buPROPion XL (WELLBUTRIN XL) 150 mg 24 hr tablet Take 1 tablet (150 mg total) by mouth 1 (one) time each day. Active carvediloL (COREG) 25 mg tablet Active Farxiga 10 mg tablet Take 1 tablet (10 mg total) by mouth 1 (one) time each day. Active doxazosin (CARDURA) 2 mg tablet Take 1 tablet (2 mg total) by mouth. at bedtime Active Trulicity 3 mg/0.5 mL pen injector injection INJECT 3 MG SUBCUTANEOULY ONCE WEEKLY. ROTATE INJECTION SITES. Active fenofibrate (LOFIBRA) 160 mg tablet Take 1 tablet (160 mg total) by mouth 1 (one) time each day. Active Tresiba FlexTouch U-100 100 unit/mL (3 mL) injection pen 75 UNITS SUBCUTANEOUS INFUSION 2 TIMES A DAY Active metFORMIN XR (GLUCOPHAGE-XR) 500 mg 24 hr tablet Take 2 tablets (1,000 mg total) by mouth 2 (two) times a day. 4 Active olmesartan (BENICAR) 20 mg tablet Take 1 tablet (20 mg total) by mouth 1 (one) time each day. Active gabapentin (NEURONTIN) 300 mg capsule Take 1 capsule (300 mg total) by mouth 3 (three) times a day. Active dicyclomine (BENTYL) 10 mg capsuleIndicati ons:Diarrhea, unspecified type,Epigastric pain Take 1 capsule (10 mg total) by mouth 3 (three) times a day. 270 each 3 5 026 Active Additional Information Patient not taking.Reported on 11/11/2024 ibuprofen (ADVIL,MOTRIN) 600 mg tablet Take 1 tablet (600 mg total) by mouth. every 4 to 6 hours as needed 4 Active isosorbide mononitrate (IMDUR) 30 mg 24 hr tablet Take 1 tablet (30 mg total) by mouth 1 (one) time each day. 4 Active olmesartan-hydr oCHLOROthiazide (BENICAR HCT) 40-25 mg per tablet Take 2 tablets by mouth 1 (one) time each day. 4 Active semaglutide (Ozempic) 1 mg/dose (4 mg/3 mL) injection pen Inject 1 mg under the skin every 7 (seven) days. 4 Active Active Problems Problem Noted Date Diagnosed Date Cellulitis of lower extremity 11/10/2024 Angina pectoris ([facility] V24) 11/10/2024 Chest pain 11/10/2024 Hyperglycemia 11/10/2024 Moderate major depression, s grace episode ([facility] V24, [facility] V28) 11/10/2024 Obstructive sleep apnea syndrome 11/10/2024 Pedal edema 11/10/2024 Severe obesity (BMI 35.0-39. 9) with comorbidity ([facility] V24, [facility] V28) 11/10/2024 Tinea versicolor 11/10/2024 Tremor 11/10/2024 Umbilical hernia 11/10/2024 Type 2 diabetes mellitus, wi th long-term current use of insulin ([facility] V24, [facility] V28) 08/12/2024 HTN (hypertension) 08/12/2024 Hyperlipidemia 08/12/2024 Schatzki ring of distal esophagus 08/12/2024 IBS (irritable bowel syndrome) 08/12/2024 CAD (coronary artery disease) 08/12/2024 Overview (08/12/2024): stent Encounters Date Type Department Care Team Description 01/13/2025 11:59 AM EDT Anesthesia Event [facility] End[facility] [address] [place] [id number] Nan Jain MD 01/13/2025 11:18 AM EDT - 01/13/2025 11:59 PM EDT Hospital Encounter [facility] [address] [place] [id number] Alan Shin MD Barnes, Tyanna R, CRNA Walsh, Michael, DO Dysphagia; Schatzki's ring Discharge Disposition: Home or Self Care from Last 3 Months Immunizations Name Administration Dates Next Due Influenza Whole 07/16/2008 Influenza trivalent, with pr eservative (Fluzone; Afluria) 6mo and older 05/06/2024,05/31/2021,07/04/2011 Pneumococcal conjugate 20 va lent (Prevnar 20, PCV 20) 2mo and older 06/06/2022 Pneumococcal polysaccharide 23 valent (Pneumovax 23) 2yo and older 02/20/2008 Td, Unspecified 04/21/2001 Tdap Tetanus diptheria acell ular pertussis (Boostrix; Adacel) 7yo and older 07/24/2021,07/04/2011 Surgical History Surgery Date Site/Laterality Comments HERNIA REPAIR inguinal hernia repair COLONOSCOPY 05/15/2022 - 06/13/2022 normal mucosa, nl bx right, left colon and rectum (10 yr) ESOPHAGOGASTRODUODENOSCOPY 05/15/2022 - 06/13/2022 small HH, mild schatzki ring dilated, nl small bowel bx CORONARY ANGIOPLASTY WITH ST ENT PLACEMENT TIBIA FRACTURE SURGERY Left Medical History Medical History Date Comments Hypertension Ulcerative colitis (CMS/HCC V24, CMS/HCC V28) IBS (irritable bowel syndrome) GERD (gastroesophageal reflux disease) Depression Chest pain CAD (coronary artery disease) ASHD (arteriosclerotic heart disease) Angina pectoris ([facility] V24) Tinea versicolor Umbilical hernia Diabetes mellitus ([facility] V24, [facility] V28) Social History Tobacco Use Types Packs/Day Years Used Date Smoking Tobacco: Former Cigarettes Smokeless Tobacco: Never Tobacco Cessation:Counseling Given: Not Answered Alcohol Use Standard Drinks/Week Comments Not Currently 0 (1 standard drink = 0.6 oz pur e alcohol) Interpersonal Safety Answer Date Record ed Physical Abuse 01/13/2025 Verbal Abuse 01/13/2025 Sex and Gender Information Value Date Recorded Sex Assigned at Male 08/12/2024 2:26 PM EST Legal Sex Male 6:20 PM EST Gender Identity Male 08/12/2024 2:26 PM EST Sexual Orientation Straight 08/12/2024 2: 26 PM EST Obstetrics History Last Filed Vital Signs Vital Sign Reading Time Taken Comments Blood Pressure 111/64 01/13/2025 12:35 PM EDT Pulse 72 01/13/2025 12:35 PM EDT Temperature 36.2 C (97.1 F) 01/13/2025 12:12 PM EDT Respiratory Rate 16 01/13/2025 12:35 PM EDT Oxygen Saturation 93% 01/13/2025 12:35 PM EDT Inhaled Oxygen Concentration - - Weight 125 kg (275 lb) 01/13/2025 11:51 AM EDT Height 182.9 cm (6') 01/13/2025 11:51 AM EDT Body Mass Index 37.3 01/13/2025 11:51 AM EDT Plan of Treatment Health Maintenance Due Date Last Done Comments Diabetes: Annual GFR (Glomerular Filtration Rate) 1966 Diabetes: Annual Foot Exam 1976 Diabetes: Annual Retina Eye Exam 1976 Hepatitis B Vaccines (1 of 3 - 19+ 3-dose series) 1985 Zoster Vaccines (1 of 2) 2016 Cholesterol Screening (Lipid Panel) 06/16/2022 Colorectal Cancer Screening: Colonoscopy 06/16/2022 HIV Screening 06/16/2022 Hepatitis C Screening 06/16/2022 Social Influencers of Health Screening 06/16/2022 Depression Screening 07/15/2024 Diabetes: Annual Urine Albumin-Creatinine Ratio (uACR) 08/12/2024 Diabetes: Blood Sugar Control Test (HGBA1C) 08/12/2024 Hypertension/CHF/CAD Annual BMP Blood Test 08/12/2024 COVID-19 Vaccine ( season) 2025 11/17/2021, 07/24/2021, 11/05/2020, Additional history exists Influenza Vaccine (#1) 2025 , 05/31/2021, 07/04/2011, Additional history exists DTaP,Tdap,and Td Vaccines (4 - Td or Tdap) 07/24/2031 07/24/2021, 07/04/2011, 04/21/2001 RSV Immunization Adult Patients (1 - 1-dose 75+ series) 2041 Pneumococcal Vaccine: 50+ Years Completed 06/06/2022, 02/20/2008 HIB Vaccines Aged Out No longer eligi ble based on patient's age to complete this topic HPV Vaccines Aged Out No longer eligi ble based on patient's age to complete this topic Hepatitis A Vaccines Aged Out No long er eligible based on patient's age to complete this topic IPV Vaccines Aged Out No longer eligi ble based on patient's age to complete this topic MMR Vaccines Aged Out No longer eligi ble based on patient's age to complete this topic Meningococcal ACWY Vaccine Aged Out N o longer eligible based on patient's age to complete this topic Meningococcal B Vaccine Aged Out No l onger eligible based on patient's age to complete this topic RSV Immunization Patients Under 20 months Aged Out No longer eligible based on patient's age to complete this topic Varicella Vaccines Aged Out No longer eligible based on patient's age to complete this topic Medical Devices Implanted Type Area Search Developer Device Identifier Shelf Expiration Date Model / Serial / Lot Stents Stents N/A: Heart Procedures Procedure Name Priority Date/Time Associated Diagnosis Comments EGD Routine 01/13/2025 12:11 PM EDT Dysphagia Schatzki's ring TISSUE EXAM Routine 01/13/2025 12:05 PM EDT Dysphagia Schatzki's ring from Last 3 Months Results * EGD Esophageal Dilation with Balloon; Anesthesia - MAC; [facility] ENDOSCOPY (01/13/2025 12:11 PM EDT) Anatomical Region Laterality Modality Endoscopy 01/13/2025 11:5 2 AM EDT Impressions 01/13/2025 12:13 PM EDT - Z-line regular, 42 cm from the incisors. - Normal esophagus. - Congested, erythematous, eroded and friable (with contact bleeding) mucosa in the antrum. Biopsied. - Normal examined duodenum. Biopsied. Recommendation: - Discharge patient to home. - Resume previous diet. - Continue present medications. - Await pathology results. - Return to GI clinic as previously scheduled. Narrative 01/13/2025 12:13 PM EDT [facility] GI Patient Name: Nancy Jensen Procedure Date: 01/13/2025 11:52 AM Date of : 1965 Age: 59 Room: ROOM 16 Gender: Male Note Status: Finalized Attending MD: Alan Shin MD, Procedure Date No Time: 01/13/2025 Procedure: Upper GI endoscopy Indications: Epigastric abdominal pain, Diarrhea Providers: Alan Shin MD Referring MD: Alan Shin MD Medicines: Monitored Anesthesia Care Complications: No immediate complications. Estimated Blood Loss: Estimated blood loss: none. Procedure: Pre-Anesthesia Assessment: - ASA Grade Assessment: III - A patient with severe systemic disease. - After reviewing the risks and benefits, the patient was deemed in satisfactory condition to undergo the procedure. After obtaining informed consent, the endoscope was passed under direct vision. Throughout the procedure, the patient's blood pressure, pulse, and oxygen saturations were monitored continuously.The Olympus Gastroscope was introduced through the mouth, and advanced to the third part of duodenum. The upper GI endoscopy was accomplished without difficulty. The patient tolerated the procedure well. Findings: The Z-line was regular and was found 42 cm from the incisors. The esophagus was normal. Patchy moderate mucosal changes characterized by congestion, erythema, erosion and friability (with contact bleeding) were found in the gastric antrum. Biopsies were taken with a cold forceps for histology. Estimated blood loss was minimal. The exam of the stomach was otherwise normal. The examined duodenum was normal. Biopsies were taken with a cold forceps for histology. Estimated blood loss was minimal. Procedure Code(s): --- Professional --- 44784, Esophagogastroduodenoscopy, flexible, transoral; with biopsy, single or multiple Diagnosis Code(s): --- Professional --- R10.13, Epigastric pain R19.7, Diarrhea, unspecified CPT copyright 2020 [employer]. All rights reserved. The codes documented in this report are preliminary and upon sheet manager review may be revised to meet current compliance requirements. Alan Shin MD 01/13/2025 12:13:29 PM This report has been signed electronically.Alan Shin MD Number of Addenda: 0 Note Initiated On: 01/13/2025 11:52 AM Scope In: Scope Out: Endoscopy Department at [facility] - [address] [place] [id number] Procedure Note Alan Shin MD - 01/13/2025 [facility] GI Patient Name: Nancy Jensen Procedure Date: 01/13/2025 11:52 AM Date of : 1965 Age: 59 Room: ROOM 16 Gender: Male Note Status: Finalized Attending MD: Alan Shin MD, Procedure Date No Time: 01/13/2025 Procedure: Upper GI endoscopy Indications: Epigastric abdominal pain, Diarrhea Providers: Alan Shin MD Referring MD: Alan Shin MD Medicines: Monitored Anesthesia Care Complications: No immediate complications. Estimated Blood Loss: Estimated blood loss: none. Procedure: Pre-Anesthesia Assessment: - ASA Grade Assessment: III - A patient with severe systemic disease. - After reviewing the risks and benefits, thepatient was deemed in satisfactory condition to undergo the procedure. After obtaining informed consent, the endoscope was passed under direct vision. Throughout theprocedure, the patient's blood pressure, pulse, and oxygen saturations were monitored continuously.The Olympus Gastroscope was introduced through the mouth, and advanced to the third part of duodenum. The upperGI endoscopy was accomplished without difficulty. The patient tolerated the procedure well. Findings: The Z-line was regular and was found 42 cm from the incisors. The esophagus was normal. Patchy moderate mucosal changes characterized by congestion, erythema, erosion and friability (with contact bleeding) were found in the gastric antrum. Biopsies were taken with a cold forceps forhistology. Estimated blood loss was minimal. The exam of the stomach was otherwise normal. The examined duodenum was normal. Biopsies weretaken with a cold forceps for histology. Estimated blood loss was minimal. Procedure Code(s): --- Professional --- 74752, Esophagogastroduodenoscopy, flexible, transoral; with biopsy, single or multiple Diagnosis Code(s): --- Professional --- R10.13, Epigastric pain R19.7, Diarrhea, unspecified CPT copyright 2020 [employer]. All rights reserved. The codes documented in this report are preliminary and upon sheet manager reviewmay be revised to meet current compliance requirements. Alan Shin MD 01/13/2025 12:13:29 PM This report has been signed electronically.Alan Shin MD Number of Addenda: 0 Note Initiated On: 01/13/2025 11:52 AM Scope In: Scope Out: Endoscopy Department at [facility] - [address] [place] [id number] IMPRESSION: - Z-line regular, 42 cm from the incisors. - Normal esophagus. - Congested, erythematous, eroded and friable (with contact bleeding) mucosa in the antrum. Biopsied. - Normal examined duodenum. Biopsied. Recommendation: - Discharge patient to home. - Resume previous diet. - Continue present medications. - Await pathology results. - Return to GI clinic as previously scheduled. Alan Shin MD GI~PROCEDURE ORDERABLES Final Result * Tissue exam (01/13/2025 12:05 PM EDT) Final Diagnosis A. Duodenum, biopsy: - Small bowel mucosa with occasional blunted villi; otherwise no diagnostic histopathologic change. - No increase in intraepithelial lymphocytes is identified. B. Stomach, antrum, biopsy: - Gastric antral type mucosa with focal chronic inflammation including rare basilar aggregates of small lymphocytes. - No active gastritis and no intestinal metaplasia identified. - No Helicobacter pylori identified on hematoxylin and eosin stained sections. 01/14/2025 11:28 AM EDT [facility] Gross Description A. Small Intestine, Duodenum, biopsies: Labeled duodenum biopsy . Received in formalin are six irregular ballesteros mucosal tissue fragments, ranging from 0.1 cm to 0.5 cm in greatest dimension, which are wrapped in paper and submitted in toto in one cassette, six pieces, multiple levels on one slide. B. Gastric, Antrum, biopsies: Labeled gastric ant biopsy . Received in formalin are six irregular ballesteros mucosal tissue fragments, ranging from 0.1 cm to 0.3 cm in greatest dimension, which are wrapped in paper and submitted in toto in one cassette, seven pieces, multiple levels on one slide. DARRELL 01/14/2025 11:28 AM EDT [facility] Disclaimer Unless otherwise specified, all tissue is 10% NB formalin fixed and paraffin embedded. 01/14/2025 11:28 AM EDT [facility] Tissue Pyloric antrum structure / Unknown 01/13/2025 12:05 PM EDT 01/13/2025 12:57 PM EDT Tissue specimen (specimen) Pyloric antrum structure / Unknown 01/13/2025 12:05 PM EDT 01/13/2025 12:57 PM EDT Alan Shin MD LAB PATHOLOGY ORDERABLES Corinne pulido Result [facility] [address] [place] [address], from Last 3 Months Insurance [facility] [place] [id number] Care Teams Bell Attendant Relationship Specialty Start Date End Date Alvin Gill MD [address] [place] [address] PCP - General Family Medicine 07/28/24
[2025-03-21 08:52] VITALS: BP 119/65; PULSE 85; RESP 16; TEMP 36.6; O2SAT 98
== END 2025-03-21 08:53 | disposition home or self-care (01) ==
PROVIDERS: Emergency Provider Emergency Medicine; PCP Family Medicine
DX: L03.116 Cellulitis of left lower limb (principal); R60.0 Localized edema; I87.2 Venous insufficiency (chronic) (peripheral); I89.0 Lymphedema, not elsewhere classified; Z79.899 Other long term (current) drug therapy
CPT/HCPCS: 36415; 80048; 85025; 93971; 99284

== ENCOUNTER → 2025-03-21 07:12 | Outpatient (BNV) | payer OTHER, SELFPAY | PROVIDERS: Emergency Provider Emergency Medicine; PCP Family Medicine; Visit Provider Specialist | DX: R22.42 Localized swelling, mass and lump, left lower limb (principal) | CPT/HCPCS: 93971 ==